=== PATIENT | male | born 1955 | race Caucasian/White ===

== ENCOUNTER 2016-07-08 11:32 | Emergency (ER) | payer MEDICARE, OTHER ==
--- NOTE | 2016-07-08 12:27 | ED ---
General Adult HPI - General Chief complaint: Weakness Stated complaint: POSS SEPSIS Time Seen by Provider: 07/08/16 11:55 Source: patient, RN notes reviewed Mode of arrival: EMS Limitations: no limitations - History of Present Illness Initial comments: This is a 60-year-old male who presents to the emergency department complaining of generalized weakness. Patient states she's fallen twice yesterday and hurt his lower back. According to the facility where he came from the physician wanted to get an x-ray of his pelvis and lower back however the x-ray machine was incapable of x-raying somewhat as large as he was. The patient was sent into the emergency department. They also wanted us to evaluate him for any infection because they were only getting very low temperatures the patient. Patient states he does feel weaker in general but aside from that he has had no complaints per patient denies headache patient denies any lightheadedness or dizziness. Patient denies any chest pain or palpitations. Patient denies any shortness of breath or difficulty breathing more than normal. Patient denies abdominal pain patient denies nausea vomiting or diarrhea. Patient denies any recent fever or chills or cough. Patient denies any dysuria hematuria. Patient states she's got chronic cellulitis on bilateral legs. - Related Data Home Medications Medication Instructions Recorded Confirmed Aspirin EC [Ecotrin Low Dose] 81 mg PO HS 10/11/15 07/08/16 glipiZIDE [Glucotrol] 5 mg PO DAILY 10/11/15 07/08/16 Ergocalciferol [Vitamin D2 50,000 unit PO MO 11/24/15 07/08/16 (DRISDOL)] Omeprazole [PriLOSEC] 20 mg PO DAILY 11/24/15 07/08/16 Levalbuterol Nebulized [Xopenex 1.25 mg INHALATION RT-TID 11/25/15 07/08/16 Nebulized] Metoprolol Tartrate [Lopressor] 50 mg PO BID 11/25/15 07/08/16 Sacubitril/Valsartan [Entresto 24 1 tab PO BID 11/25/15 07/08/16 mg-26 mg Tablet] Acetaminophen Tab [Tylenol] 325 mg PO Q6H PRN 05/02/16 07/08/16 INSULIN LISPRO (humaLOG) [humaLOG See Protocol SQ ACHS 05/02/16 07/08/16 (formulary)] Levothyroxine Sodium [Synthroid] 150 mcg PO DAILY 05/02/16 07/08/16 Loperamide [Imodium] 2 mg PO QID PRN 05/02/16 07/08/16 Menthol [Biofreeze] 1 applic TOPICAL BID PRN 05/02/16 07/08/16 Metolazone [Zaroxolyn] 2.5 mg PO DAILY@0500 05/02/16 07/08/16 Miconazole Nitrate [Lotrimin AF 1 applic TOPICAL DAILY 05/02/16 07/08/16 Powder] Nystatin 100,000 Unit/gm Powd 1 applic TOPICAL BID 05/02/16 07/08/16 [Mycostatin Powder] Pravastatin Sodium [Pravachol] 40 mg PO HS 05/02/16 07/08/16 SILVER sulfADIAZINE CREAM 1 applic TOPICAL HS 05/02/16 07/08/16 [Silvadene Cream] Allopurinol [Zyloprim] 300 mg PO DAILY 07/08/16 07/08/16 Cetirizine HCl [Zyrtec] 10 mg PO DAILY@0600 07/08/16 07/08/16 Clotrimazole/Betamethasone Dip 1 applic TOPICAL BID@0700,1600 07/08/16 07/08/16 [Lotrisone Cream] Darbepoetin Tez [Aranesp] 60 mcg SQ TU 07/08/16 07/08/16 Edoxaban Tosylate [Savaysa] 30 mg PO HS 07/08/16 07/08/16 Mylanta Susp 30 ml PO Q4H PRN 07/08/16 07/08/16 Nitroglycerin Sl Tabs [Nitrostat] 0.4 mg SUBLINGUAL Q5M PRN 07/08/16 07/08/16 PARoxetine HCL [Paxil] 40 mg PO DAILY@0700 07/08/16 07/08/16 Penicillin V Potassium [Pen Vee K] 250 mg PO DAILY 07/08/16 07/08/16 Sodium Chloride [[place]] 1 spray EA NOSTRIL Q8H PRN 07/08/16 07/08/16 oxyCODONE HCL 15 mg PO Q6HR PRN 07/08/16 07/08/16 Previous Rx's Medication Instructions Recorded ALPRAZolam [Xanax] 0.5 mg PO Q8H PRN #30 tab 05/08/16 Acetaminophen Tab [Tylenol] 650 mg PO Q6HR PRN #0 tab 05/08/16 Furosemide [Lasix] 40 mg PO DAILY tab 05/08/16 Methylphenidate HCl [Ritalin] 20 mg PO BID@0500,1500 #60 tablet 05/08/16 Pregabalin [Lyrica] 75 mg PO BID #60 cap 05/08/16 Allergies Allergy/AdvReac Type Severity Reaction Status Date / Time [facility] Allergy Severe Rash/Hives Uncoded 05/02/16 15:47 Review of Systems ROS Statement: Those systems with pertinent positive or pertinent negative responses have been documented in the HPI. ROS Other: All systems not noted in ROS Statement are negative. Past Medical History Past Medical History: Atrial Fibrillation, Heart Failure, COPD, Diabetes Mellitus, GERD/Reflux, Hyperlipidemia, Hypertension, Pneumonia, Renal Disease, Sleep Apnea/CPAP/BIPAP, Thyroid Disorder Additional Past Medical History / Comment(s): IDDM type II, chronic kidney disease stage III, ALLA uses CPAP most nights, narcolepsy, diabetic neuropathy bilateral hands and feet, chronic back pain, spinal stenosis, DJD, falls, diverticular dx, L vocal cord irregularity/lesion noted and pt states he followed up and it had gone down, hypothyroidism.EDENTULOUS History of Any Multi-Drug Resistant Organisms: MRSA, Other MDRO Date of last positivie culture/infection: 02/03/15, 05/02/16 MDRO Source:: Right leg, mdro pseudo urine Past Surgical History: Adenoidectomy, Cholecystectomy, Orthopedic Surgery, Tonsillectomy Additional Past Surgical History / Comment(s): 04/28/15 nasophargoscopy larygoscopy, colonoscopy, lt knee arthroscopy Past Anesthesia/Blood Transfusion Reactions: No Reported Reaction, Family History of Problems w/ Anesthesia Additional Past Anesthesia/Blood Transfusion Reaction / Comment(s): states father had cardiac arrest 2x's. Pt received blood in 1983 with tonsillectomy.PT IS CLAUSTERPHOBIC. Past Psychological History: Depression Additional Psychological History / Comment(s): . Smoking Status: Never smoker Past Alcohol Use History: None Reported Additional Past Alcohol Use History / Comment(s): Pt states he started smoking at age 9 yrs and WAS up to 2 ppd ,THEN QUIT SMORT PERIOD OF TIME BUT ONLY FEW CIG PER DAY Past Drug Use History: None Reported - Past Family History Sister(s) Additional Family Medical History / Comment(s): CARR'S Mother Family Medical History: Renal Disease Father Family Medical History: Cancer, Coronary Artery Disease (CAD), Diabetes Mellitus General Exam - General Exam Comments Initial Comments: GENERAL: Patient is well-developed and well-nourished. Patient is nontoxic and well- hydrated and is in mild distress. ENT: Neck is soft and supple. No significant lymphadenopathy is noted. Oropharynx is clear. Moist mucous membranes. Neck has full range of motion without eliciting any pain. EYES: The sclera were anicteric and conjunctiva were pink and moist. Extraocular movements were intact and pupils were equal round and reactive to light. Eyelids were unremarkable. PULMONARY: Unlabored respirations. Good breath sounds bilaterally. No audible rales rhonchi or wheezing was noted. CARDIOVASCULAR: Patient has an irregular heartbeat ABDOMEN: Soft and nontender with normal bowel sounds. No palpable organomegaly was noted. There is no palpable pulsatile mass. SKIN: Bilateral leg cellulitis which appears chronic there is some weeping through the skin and some fluid-filled vesicles. There is quite a bit of edema bilaterally as well NEUROLOGIC: Patient is alert and oriented x3. Cranial nerves II through XII are grossly intact. Motor and sensory are also intact. Normal speech, volume and content. Symmetrical smile. MUSCULOSKELETAL: Patient has some lower back pain when trying to lift passively his left leg. Patient has bilateral chronic cellulitis patient has some weeping as well. LYMPHATICS: No significant lymphadenopathy is noted PSYCHIATRIC: Normal psychiatric evaluation. Limitations: no limitations Course Vital Signs 07/08/16 07/08/16 07/08/16 11:53 12:33 15:14 Temperature 96.8 F L 97.6 F 98.5 F Pulse Rate 84 93 Respiratory 18 16 Rate Blood Pressure 138/98 134/58 O2 Sat by Pulse 98 97 Oximetry Medical Decision Making - Medical Decision Making EKG shows atrial fibrillation at 91 bpm QRS is 142 QT interval is 418 QTC is 514. Patient has no ST segment elevation or depression. I compared this EKG to an old EKG is in no acute changes noted. Lumbosacral spine shows no acute injury. Pelvic x-ray shows no acute fracture. Chest x-ray is reviewed by myself I see no signs of pneumonia. Patient was discharged with a hemoglobin 8.6 the last time he was in the hospital his hemoglobin today is 8.3 so that appears to be stable patient himself really has no complaints other than he hurt his back when he fell. - Lab Data Result diagrams: 07/08/16 12:55 07/08/16 12:55 Lab Results 07/08/16 07/08/16 07/08/16 Range/Units 12:55 12:55 12:55 WBC 8.0 (3.8-10.6) k/uL RBC 2.75 L (4.30-5.90) m/uL Hgb 8.3 L (13.0-17.5) gm/dL Hct 25.6 L (39.0-53.0) % MCV 93.1 (80.0-100.0) fL MCH 30.4 (25.0-35.0) pg MCHC 32.6 (31.0-37.0) g/dL RDW 15.2 (11.5-15.5) % Plt Count 197 (150-450) k/uL Neutrophils % 62 % Lymphocytes % 22 % Monocytes % 6 % Eosinophils % 8 % Basophils % 1 % Neutrophils # 4.9 (1.3-7.7) k/uL Lymphocytes # 1.7 (1.0-4.8) k/uL Monocytes # 0.5 (0-1.0) k/uL Eosinophils # 0.6 (0-0.7) k/uL Basophils # 0.1 (0-0.2) k/uL Hypochromasia Moderate Poikilocytosis Slight PT (9.0-12.0) sec INR (<1.1) APTT (22.0-30.0) sec Sodium 141 (137-145) mmol/L Potassium 5.3 H (3.5-5.1) mmol/L Chloride 97 L (98-107) mmol/L Carbon Dioxide 31 H (22-30) mmol/L Anion Gap 13 mmol/L BUN 76 H (9-20) mg/dL Creatinine 3.43 H (0.66-1.25) mg/dL Est GFR (MDRD) Af Amer 22 (>60 ml/min/1.73 sqM) Est GFR (MDRD) Non-Af 18 (>60 ml/min/1.73 sqM) Glucose 167 H (74-99) mg/dL Plasma Lactic Acid Jaxon 1.0 (0.7-2.0) mmol/L Calcium 8.9 (8.4-10.2) mg/dL Magnesium 2.5 H (1.6-2.3) mg/dL Total Bilirubin 0.5 (0.2-1.3) mg/dL AST 32 (17-59) U/L ALT 24 (21-72) U/L Alkaline Phosphatase 130 H (38-126) U/L Total Creatine Kinase (55-170) U/L CK-MB (CK-2) (0.0-2.4) ng/mL CK-MB (CK-2) Rel Index Troponin I (0.000-0.034) ng/mL Total Protein 7.8 (6.3-8.2) g/dL Albumin 3.5 (3.5-5.0) g/dL 07/08/16 07/08/16 Range/Units 13:20 13:20 WBC (3.8-10.6) k/uL RBC (4.30-5.90) m/uL Hgb (13.0-17.5) gm/dL Hct (39.0-53.0) % MCV (80.0-100.0) fL MCH (25.0-35.0) pg MCHC (31.0-37.0) g/dL RDW (11.5-15.5) % Plt Count (150-450) k/uL Neutrophils % % Lymphocytes % % Monocytes % % Eosinophils % % Basophils % % Neutrophils # (1.3-7.7) k/uL Lymphocytes # (1.0-4.8) k/uL Monocytes # (0-1.0) k/uL Eosinophils # (0-0.7) k/uL Basophils # (0-0.2) k/uL Hypochromasia Poikilocytosis PT 11.4 (9.0-12.0) sec INR 1.1 (<1.1) APTT 24.9 (22.0-30.0) sec Sodium (137-145) mmol/L Potassium (3.5-5.1) mmol/L Chloride (98-107) mmol/L Carbon Dioxide (22-30) mmol/L Anion Gap mmol/L BUN (9-20) mg/dL Creatinine (0.66-1.25) mg/dL Est GFR (MDRD) Af Amer (>60 ml/min/1.73 sqM) Est GFR (MDRD) Non-Af (>60 ml/min/1.73 sqM) Glucose (74-99) mg/dL Plasma Lactic Acid Jaxon (0.7-2.0) mmol/L Calcium (8.4-10.2) mg/dL Magnesium (1.6-2.3) mg/dL Total Bilirubin (0.2-1.3) mg/dL AST (17-59) U/L ALT (21-72) U/L Alkaline Phosphatase (38-126) U/L Total Creatine Kinase 83 (55-170) U/L CK-MB (CK-2) 1.7 (0.0-2.4) ng/mL CK-MB (CK-2) Rel Index 2.0 Troponin I <0.012 (0.000-0.034) ng/mL Total Protein (6.3-8.2) g/dL Albumin (3.5-5.0) g/dL Disposition Clinical Impression: Frequent falls, Lumbar strain Disposition: HOME SELF-CARE Instructions: Low Back Strain (ED) Referrals: Maxwell Lai MD [Primary Care Provider] - 1-2 days Time of Disposition: 14:51
[2016-07-08 13:31] LABS: Calcium 8.9 mg/dL (8.4-10.2); Total Bilirubin 0.5 mg/dL (0.2-1.3); Total Protein 7.8 g/dL (6.3-8.2)
[2016-07-08 13:32] LABS: Potassium 5.3 mmol/L (3.5-5.1)
[2016-07-08 13:33] LABS: Magnesium 2.5 mg/dL (1.6-2.3)
[2016-07-08 13:39] LABS: Basophils # (A) 0.1 k/uL (0-0.2); Basophils % (A) 1 %; CH 30.1; CHCM 32.5; Eosinophils # (A) 0.6 k/uL (0-0.7); Eosinophils % (A) 8 %; HCT 25.6 % (39.0-53.0); HDW 3.92; HGB 8.3 gm/dL (13.0-17.5); Hypochromasia Moderate; Luc # (Auto) 0.19; Luc % (Auto) 2; Lymphocytes # (A) 1.7 k/uL (1.0-4.8); Lymphocytes % (A) 22 %; MCH 30.4 pg (25.0-35.0); MCHC 32.6 g/dL (31.0-37.0); MCV 93.1 fL (80.0-100.0); Mean Platelet Volume 8.1; Monocytes # (A) 0.5 k/uL (0-1.0); Monocytes % (A) 6 %; Neutrophils # (A) 4.9 k/uL (1.3-7.7); Neutrophils % (A) 62 %; Poikilocytosis Slight; RBC 2.75 m/uL (4.30-5.90); RDW 15.2 % (11.5-15.5); WBC (Perox) 8.06
[2016-07-08 13:39] LABS: INR 1.1 (<1.1); Partial Thromboplastin Time 24.9 sec (22.0-30.0); Prothrombin Time 11.4 sec (9.0-12.0)
[2016-07-08 13:48] LABS: Creatine Kinase 83 U/L (55-170)
[2016-07-08 14:01] LABS: Creatine Kinase MB 1.7 ng/mL (0.0-2.4); Troponin I <0.012 ng/mL (0.000-0.034)
--- NOTE | 2016-07-08 14:44 | XR ---
EXAMINATION TYPE: XR chest 2V DATE OF EXAM: 07/08/2016 2:23 PM COMPARISON: 05/02/2016 INDICATION: Weakness back pain TECHNIQUE: Frontal and lateral views of the chest are obtained. FINDINGS: Heart size is prominent The pulmonary vasculature is normal. Mild right lower lobe infiltrate is present. Correlate for pneumonia. IMPRESSION: 1. Clinical consideration for right lower lobe pneumonia is recommended. 2. Mild cardiomegaly
--- NOTE | 2016-07-08 14:45 | XR ---
EXAMINATION TYPE: XR lumbosacral spine min 4V DATE OF EXAM: 07/08/2016 2:23 PM COMPARISON: NONE HISTORY: Back pain TECHNIQUE: 5 view lumbar spine FINDINGS: Disc space narrowing is present in the lower lumbar spine L4-5 region. The L5-S1 disc space appears significantly diminished. Spondylosis is present. Facet degenerative changes are present. No spondylolytic defects are evident. There 5 lumbar-type vertebral bodies. The pedicles are intact. IMPRESSION: 1. Degenerative changes within the facets and lower disc spaces.
--- NOTE | 2016-07-08 14:46 | XR ---
EXAMINATION TYPE: XR pelvis AP view DATE OF EXAM: 07/08/2016 2:23 PM COMPARISON: NONE HISTORY: Low back pain history of falls TECHNIQUE: AP pelvis FINDINGS: Femoral heads articulate with the acetabulum. No acute fractures are evident. Cam deformiti es are present at the hips. Symphysis pubis and sacroiliac joints appear intact. Normal bowel gas is present. IMPRESSION: No acute osseous abnormality.
[2016-07-08 15:16] VITALS: BP 134/58; PULSE 93; RESP 16; TEMP 98.5
== END 2016-07-08 16:03 | disposition home or self-care (01) ==
LOC: EC 11:32
DX: S39.012A Strain of muscle, fascia and tendon of lower back, initial encounter (principal); I13.0 Hypertensive heart and chronic kidney disease with heart failure and stage 1 through stage 4 chronic kidney disease, or unspecified chronic kidney disease; E11.22 Type 2 diabetes mellitus with diabetic chronic kidney disease; E11.42 Type 2 diabetes mellitus with diabetic polyneuropathy; N18.3 Chronic kidney disease, stage 3 (moderate); W19.XXXA Unspecified fall, initial encounter; Z91.81 History of falling; Z79.84 Long term (current) use of oral hypoglycemic drugs; Z79.82 Long term (current) use of aspirin; Z79.4 Long term (current) use of insulin; Z79.899 Other long term (current) drug therapy; I50.9 Heart failure, unspecified; J44.9 Chronic obstructive pulmonary disease, unspecified; K21.9 Gastro-esophageal reflux disease without esophagitis; E78.5 Hyperlipidemia, unspecified; Z87.01 Personal history of pneumonia (recurrent); G47.33 Obstructive sleep apnea (adult) (pediatric); E03.9 Hypothyroidism, unspecified; Z86.14 Personal history of Methicillin resistant Staphylococcus aureus infection; Z82.49 Family history of ischemic heart disease and other diseases of the circulatory system; F32.9 Major depressive disorder, single episode, unspecified; F17.210 Nicotine dependence, cigarettes, uncomplicated; Z79.01 Long term (current) use of anticoagulants
CPT/HCPCS: 36415; 71020; 72110; 72170; 80053; 82550; 82553; 83605; 83735; 84484; 85025; 85610; 85730; 87040; 93005; 99284

== ENCOUNTER 2016-07-11 15:01 | Emergency (ER) | payer MEDICARE, OTHER ==
--- NOTE | 2016-07-11 16:21 | ED ---
Recheck HPI - General Chief Complaint: Recheck/Abnormal Lab/Rx Stated Complaint: Abnormal labs Time Seen by Provider: 07/11/16 15:45 Source: patient, EMS, RN notes reviewed, old records reviewed Mode of arrival: EMS Limitations: no limitations - History of Present Illness Initial Comments: This is a 60-year-old male who was sent in from a [facility] for evaluation for low hemoglobin and abnormal labs. He was seen here 3 days ago and found have renal failure syndrome. He states he does periodically get transfusion due to the low hemoglobin he is found have a hemoglobin and low 7 today. 3 days ago was higher. He denies any overt fevers chills nausea vomiting sweats or other symptoms. MD Complaint: abnormal lab - Related Data Home Medications Medication Instructions Recorded Confirmed Aspirin EC [Ecotrin Low Dose] 81 mg PO HS 10/11/15 07/11/16 glipiZIDE [Glucotrol] 5 mg PO DAILY 10/11/15 07/11/16 Ergocalciferol [Vitamin D2 50,000 unit PO MO 11/24/15 07/11/16 (DRISDOL)] Omeprazole [PriLOSEC] 20 mg PO DAILY 11/24/15 07/11/16 Levalbuterol Nebulized [Xopenex 1.25 mg INHALATION RT-TID 11/25/15 07/11/16 Nebulized] Metoprolol Tartrate [Lopressor] 50 mg PO BID 11/25/15 07/11/16 Sacubitril/Valsartan [Entresto 24 1 tab PO BID 11/25/15 07/11/16 mg-26 mg Tablet] Acetaminophen Tab [Tylenol] 325 mg PO Q6H PRN 05/02/16 07/11/16 INSULIN LISPRO (humaLOG) [humaLOG See Protocol SQ ACHS 05/02/16 07/11/16 (formulary)] Levothyroxine Sodium [Synthroid] 150 mcg PO DAILY 05/02/16 07/11/16 Loperamide [Imodium] 2 mg PO QID PRN 05/02/16 07/11/16 Menthol [Biofreeze] 1 applic TOPICAL BID PRN 05/02/16 07/11/16 Metolazone [Zaroxolyn] 2.5 mg PO DAILY@0500 05/02/16 07/11/16 Miconazole Nitrate [Lotrimin AF 1 applic TOPICAL DAILY 05/02/16 07/11/16 Powder] Nystatin 100,000 Unit/gm Powd 1 applic TOPICAL BID 05/02/16 07/11/16 [Mycostatin Powder] Pravastatin Sodium [Pravachol] 40 mg PO HS 05/02/16 07/11/16 SILVER sulfADIAZINE CREAM 1 applic TOPICAL HS 05/02/16 07/11/16 [Silvadene Cream] Allopurinol [Zyloprim] 300 mg PO DAILY 07/08/16 07/11/16 Cetirizine HCl [Zyrtec] 10 mg PO DAILY@0600 07/08/16 07/11/16 Clotrimazole/Betamethasone Dip 1 applic TOPICAL BID@0700,1600 07/08/16 07/11/16 [Lotrisone Cream] Darbepoetin Tez [Aranesp] 60 mcg SQ TU 07/08/16 07/11/16 Edoxaban Tosylate [Savaysa] 30 mg PO HS 07/08/16 07/11/16 Mylanta Susp 30 ml PO Q4H PRN 07/08/16 07/11/16 Nitroglycerin Sl Tabs [Nitrostat] 0.4 mg SUBLINGUAL Q5M PRN 07/08/16 07/11/16 PARoxetine HCL [Paxil] 40 mg PO DAILY@0700 07/08/16 07/11/16 Penicillin V Potassium [Pen Vee K] 250 mg PO DAILY 07/08/16 07/11/16 Sodium Chloride [[place]] 1 spray EA NOSTRIL Q8H PRN 07/08/16 07/11/16 oxyCODONE HCL 15 mg PO Q6HR PRN 07/08/16 07/11/16 Previous Rx's Medication Instructions Recorded ALPRAZolam [Xanax] 0.5 mg PO Q8H PRN #30 tab 05/08/16 Acetaminophen Tab [Tylenol] 650 mg PO Q6HR PRN #0 tab 05/08/16 Furosemide [Lasix] 40 mg PO DAILY tab 05/08/16 Methylphenidate HCl [Ritalin] 20 mg PO BID@0500,1500 #60 tablet 05/08/16 Pregabalin [Lyrica] 75 mg PO BID #60 cap 05/08/16 Allergies Allergy/AdvReac Type Severity Reaction Status Date / Time No Known Allergies Allergy Unverified 07/11/16 15:16 Review of Systems ROS Statement: Those systems with pertinent positive or pertinent negative responses have been documented in the HPI. ROS Other: All systems not noted in ROS Statement are negative. Past Medical History Past Medical History: Atrial Fibrillation, Heart Failure, COPD, Diabetes Mellitus, GERD/Reflux, Hyperlipidemia, Hypertension, Pneumonia, Renal Disease, Sleep Apnea/CPAP/BIPAP, Thyroid Disorder Additional Past Medical History / Comment(s): IDDM type II, chronic kidney disease stage III, ALLA uses CPAP most nights, narcolepsy, diabetic neuropathy bilateral hands and feet, chronic back pain, spinal stenosis, DJD, falls, diverticular dx, L vocal cord irregularity/lesion noted and pt states he followed up and it had gone down, hypothyroidism.EDENTULOUS History of Any Multi-Drug Resistant Organisms: MRSA, Other MDRO Date of last positivie culture/infection: 02/03/15, 05/02/16 MDRO Source:: Right leg, mdro pseudo urine Past Surgical History: Adenoidectomy, Cholecystectomy, Orthopedic Surgery, Tonsillectomy Additional Past Surgical History / Comment(s): 04/28/15 nasophargoscopy larygoscopy, colonoscopy, lt knee arthroscopy Past Anesthesia/Blood Transfusion Reactions: No Reported Reaction, Family History of Problems w/ Anesthesia Additional Past Anesthesia/Blood Transfusion Reaction / Comment(s): states father had cardiac arrest 2x's. Pt received blood in 1983 with tonsillectomy.PT IS CLAUSTERPHOBIC. Past Psychological History: Depression Additional Psychological History / Comment(s): . Smoking Status: Former smoker Past Alcohol Use History: None Reported Additional Past Alcohol Use History / Comment(s): Pt states he started smoking at age 9 yrs and WAS up to 2 ppd ,THEN QUIT SMORT PERIOD OF TIME BUT ONLY FEW CIG PER DAY Past Drug Use History: None Reported - Past Family History Sister(s) Additional Family Medical History / Comment(s): CARR'S Mother Family Medical History: Renal Disease Father Family Medical History: Cancer, Coronary Artery Disease (CAD), Diabetes Mellitus General Exam - General Exam Comments Initial Comments: This is a well-developed well-nourished awake alert oriented 3 male Limitations: no limitations General appearance: alert, in no apparent distress Head exam: Present: atraumatic, normocephalic, normal inspection Eye exam: Present: normal appearance, PERRL, EOMI. Absent: scleral icterus, conjunctival injection, periorbital swelling ENT exam: Present: normal exam, mucous membranes moist Neck exam: Present: normal inspection. Absent: tenderness, meningismus, lymphadenopathy Respiratory exam: Present: normal lung sounds bilaterally. Absent: respiratory distress, wheezes, rales, rhonchi, stridor Cardiovascular Exam: Present: regular rate, normal rhythm, normal heart sounds. Absent: systolic murmur, diastolic murmur, rubs, gallop, clicks GI/Abdominal exam: Present: soft, normal bowel sounds, other (Obese abdomen). Absent: distended, tenderness, guarding, rebound, rigid Extremities exam: Present: full ROM, normal capillary refill, pedal edema, other (Stasis dermatitis with peripheral edema the patient's legs are wrapped). Absent: tenderness, joint swelling, calf tenderness Back exam: Present: normal inspection Neurological exam: Present: alert, oriented X3, CN II-XII intact Psychiatric exam: Present: normal affect, normal mood Skin exam: Present: warm, dry, intact, pallor. Absent: rash Course Vital Signs 07/11/16 07/11/16 15:12 17:15 Temperature 96.9 F L 98.6 F Pulse Rate 82 93 Respiratory 20 16 Rate Blood Pressure 119/62 97/56 O2 Sat by Pulse 95 100 Oximetry Medical Decision Making - Medical Decision Making I did discuss the findings with the patient he is currently not a candidate for transfusion and his renal function is relatively stable he will be sent back to his [facility]. - Lab Data Result diagrams: 07/11/16 15:30 07/11/16 15:30 Lab Results 07/11/16 07/11/16 07/11/16 Range/Units 15:30 15:30 15:30 WBC 8.3 (3.8-10.6) k/uL RBC 2.62 L (4.30-5.90) m/uL Hgb 7.9 L (13.0-17.5) gm/dL Hct 24.3 L (39.0-53.0) % MCV 92.8 (80.0-100.0) fL MCH 30.2 (25.0-35.0) pg MCHC 32.5 (31.0-37.0) g/dL RDW 15.5 (11.5-15.5) % Plt Count 183 (150-450) k/uL Neutrophils % 65 % Lymphocytes % 17 % Monocytes % 8 % Eosinophils % 7 % Basophils % 1 % Neutrophils # 5.4 (1.3-7.7) k/uL Lymphocytes # 1.4 (1.0-4.8) k/uL Monocytes # 0.7 (0-1.0) k/uL Eosinophils # 0.6 (0-0.7) k/uL Basophils # 0.1 (0-0.2) k/uL Hypochromasia Slight Poikilocytosis Slight Sodium 142 (137-145) mmol/L Potassium 5.3 H (3.5-5.1) mmol/L Chloride 98 (98-107) mmol/L Carbon Dioxide 29 (22-30) mmol/L Anion Gap 15 mmol/L BUN 86 H* (9-20) mg/dL Creatinine 3.50 H (0.66-1.25) mg/dL Est GFR (MDRD) Af Amer 22 (>60 ml/min/1.73 sqM) Est GFR (MDRD) Non-Af 18 (>60 ml/min/1.73 sqM) Glucose 108 H (74-99) mg/dL Calcium 8.6 (8.4-10.2) mg/dL Magnesium 2.6 H (1.6-2.3) mg/dL Total Bilirubin 0.4 (0.2-1.3) mg/dL AST 22 (17-59) U/L ALT 23 (21-72) U/L Alkaline Phosphatase 131 H (38-126) U/L Total Creatine Kinase 96 (55-170) U/L CK-MB (CK-2) 2.0 (0.0-2.4) ng/mL CK-MB (CK-2) Rel Index 2.1 Troponin I <0.012 (0.000-0.034) ng/mL Total Protein 7.5 (6.3-8.2) g/dL Albumin 3.5 (3.5-5.0) g/dL - Radiology Data Radiology results: report reviewed, image reviewed (I did review the x-ray report no acute findings) Disposition Clinical Impression: Chronic renal insufficiency, Chronic anemia Disposition: HOME SELF-CARE Condition: Good Instructions: Anemia (ED), Impaired Kidney Function (ED), Chronic Kidney Disease (ED)
[2016-07-11 16:34] LABS: Basophils # (A) 0.1 k/uL (0-0.2); Basophils % (A) 1 %; CH 30.1; CHCM 32.7; Eosinophils # (A) 0.6 k/uL (0-0.7); Eosinophils % (A) 7 %; HCT 24.3 % (39.0-53.0); HGB 7.9 gm/dL (13.0-17.5); Hypochromasia Slight; Luc # (Auto) 0.23; Luc % (Auto) 3; Lymphocytes # (A) 1.4 k/uL (1.0-4.8); Lymphocytes % (A) 17 %; MCH 30.2 pg (25.0-35.0); MCHC 32.5 g/dL (31.0-37.0); MCV 92.8 fL (80.0-100.0); Mean Platelet Volume 8.3; Monocytes # (A) 0.7 k/uL (0-1.0); Monocytes % (A) 8 %; Neutrophils # (A) 5.4 k/uL (1.3-7.7); Neutrophils % (A) 65 %; Poikilocytosis Slight; RBC 2.62 m/uL (4.30-5.90); RDW 15.5 % (11.5-15.5); WBC 8.3 k/uL (3.8-10.6); WBC (Perox) 8.54
[2016-07-11 16:49] LABS: Calcium 8.6 mg/dL (8.4-10.2); Magnesium 2.6 mg/dL (1.6-2.3); Total Bilirubin 0.4 mg/dL (0.2-1.3); Total Protein 7.5 g/dL (6.3-8.2)
[2016-07-11 16:50] LABS: Creatine Kinase 96 U/L (55-170)
--- NOTE | 2016-07-11 17:02 | XR ---
EXAMINATION TYPE: XR chest 2V DATE OF EXAM: 07/11/2016 4:51 PM COMPARISON: 07/08/2016 HISTORY: 60-year-old male trauma, abnormal labs and generalized weakness TECHNIQUE: AP and lateral views FINDINGS: Limited exam due to patient's large body habitus and portable technique. Heart appears mildly enlarge d. There may be some peribronchial cuffing. Minimal residual right basilar opacity though improved ae ration from 07/08/2016. No new consolidation or significant pleural effusion seen. IMPRESSION: 1. Cardiomegaly. 2. There may be some peribronchial cuffing which can be seen with mild CHF, bronchitis, or chronic as thma. 3. There is improving aeration at the right base as compared to prior exam.
[2016-07-11 17:03] LABS: Troponin I <0.012 ng/mL (0.000-0.034)
[2016-07-11 17:16] LABS: Potassium 5.3 mmol/L (3.5-5.1)
[2016-07-11 18:49] VITALS: BP 120/70; PULSE 116; RESP 20; TEMP 98.1
== END 2016-07-11 18:51 | disposition home or self-care (01) ==
LOC: EC 15:01
DX: I12.9 Hypertensive chronic kidney disease with stage 1 through stage 4 chronic kidney disease, or unspecified chronic kidney disease (principal); E11.22 Type 2 diabetes mellitus with diabetic chronic kidney disease; N18.3 Chronic kidney disease, stage 3 (moderate); D63.1 Anemia in chronic kidney disease; Z79.82 Long term (current) use of aspirin; Z79.4 Long term (current) use of insulin; Z79.01 Long term (current) use of anticoagulants; Z79.84 Long term (current) use of oral hypoglycemic drugs; K21.9 Gastro-esophageal reflux disease without esophagitis; J44.9 Chronic obstructive pulmonary disease, unspecified; E78.5 Hyperlipidemia, unspecified; G47.33 Obstructive sleep apnea (adult) (pediatric); E11.40 Type 2 diabetes mellitus with diabetic neuropathy, unspecified; E03.9 Hypothyroidism, unspecified; Z87.891 Personal history of nicotine dependence; I48.91 Unspecified atrial fibrillation; G89.29 Other chronic pain; F32.9 Major depressive disorder, single episode, unspecified
CPT/HCPCS: 36415; 71020; 80053; 82550; 82553; 83735; 84484; 85025; 86850; 86900; 86901; 99285

== ENCOUNTER 2016-10-06 10:23 | Inpatient (IN) | payer MEDICARE, OTHER ==
[2016-10-06] MEDS ORDERED: GELATIN SPONGE,ABSORB (SMALL) 1 EACH SPONGE TOPICAL STA (10:49)
--- NOTE | 2016-10-06 10:49 | ED ---
General Adult HPI - General Chief complaint: GI Bleed Stated complaint: GI Bleed Time Seen by Provider: 10/06/16 10:31 Source: patient, EMS, RN notes reviewed Mode of arrival: EMS Limitations: physical limitation - History of Present Illness Initial comments: Patient is a pleasant 60-year-old male presenting to the emergency department with concerns regarding bleeding. skilled nursing make concern for possible GI bleed. Patient states he does have a small area on his left scrotum that they have an attending to that has had some bleeding and he believes the bleeding is likely from that. No chest pain or dyspnea. No fatigue. Patient does have sores legs. Patient has not been going to the [facility] for this. - Related Data Home Medications Medication Instructions Recorded Confirmed Aspirin EC [Ecotrin Low Dose] 81 mg PO HS 10/11/15 10/06/16 Ergocalciferol [Vitamin D2 50,000 unit PO MO 11/24/15 10/06/16 (DRISDOL)] Omeprazole [PriLOSEC] 20 mg PO DAILY 11/24/15 10/06/16 Levalbuterol Nebulized [Xopenex 1.25 mg INHALATION RT-TID 11/25/15 10/06/16 Nebulized] Sacubitril/Valsartan [Entresto 24 1 tab PO BID 11/25/15 10/06/16 mg-26 mg Tablet] Acetaminophen Tab [Tylenol] 325 mg PO Q6H PRN 05/02/16 10/06/16 INSULIN LISPRO (humaLOG) [humaLOG 10 units SQ TID@0700,1100,1700 05/02/16 (formulary)] Levothyroxine Sodium [Synthroid] 150 mcg PO DAILY 05/02/16 10/06/16 Loperamide [Imodium] 2 mg PO QID PRN 05/02/16 10/06/16 Menthol [Biofreeze] 1 applic TOPICAL BID PRN 05/02/16 10/06/16 Metolazone [Zaroxolyn] 2.5 mg PO DAILY 05/02/16 10/06/16 Nystatin 100,000 Unit/gm Powd 1 applic TOPICAL BID 05/02/16 10/06/16 [Mycostatin Powder] Pravastatin Sodium [Pravachol] 40 mg PO HS 05/02/16 10/06/16 SILVER sulfADIAZINE CREAM 1 applic TOPICAL HS 05/02/16 10/06/16 [Silvadene Cream] Allopurinol [Zyloprim] 300 mg PO DAILY 07/08/16 10/06/16 Edoxaban Tosylate [Savaysa] 30 mg PO HS 07/08/16 10/06/16 Mylanta Susp 30 ml PO Q4H PRN 07/08/16 10/06/16 Nitroglycerin Sl Tabs [Nitrostat] 0.4 mg SUBLINGUAL Q5M PRN 07/08/16 10/06/16 PARoxetine HCL [Paxil] 40 mg PO DAILY@0700 07/08/16 10/06/16 Penicillin V Potassium [Pen Vee K] 250 mg PO DAILY 07/08/16 10/06/16 Sodium Chloride [Alfred] 1 spray EA NOSTRIL Q8H PRN 07/08/16 10/06/16 oxyCODONE HCL 15 mg PO Q6HR PRN 07/08/16 10/06/16 Acetaminophen Tab [Tylenol] 650 mg PO Q4H PRN 10/06/16 10/06/16 Colloidal Oatmeal [Eucerin Eczema 1 applic TOPICAL BID 10/06/16 10/06/16 Relief] Darbepoetin Tez [Aranesp] 100 mcg IJ MO 10/06/16 10/06/16 Doxepin [SINEquan] 10 mg PO HS 10/06/16 10/06/16 Furosemide [Lasix] 80 mg PO BID 10/06/16 10/06/16 Insulin Glargine [Lantus] 22 unit SQ HS@199910/06/16 10/06/16 Methylphenidate HCl [Ritalin] 20 mg PO BID@0500,1500 10/06/16 10/06/16 Metoprolol Tartrate [Lopressor] 25 mg PO BID 10/06/16 10/06/16 Nystatin 100,000Unit/gm Cream 1 applic TOPICAL BID 10/06/16 10/06/16 [Mycostatin Cream] glipiZIDE [Glucotrol] 10 mg PO DAILY 10/06/16 10/06/16 Previous Rx's Medication Instructions Recorded ALPRAZolam [Xanax] 0.5 mg PO Q8H PRN #30 tab 05/08/16 Pregabalin [Lyrica] 75 mg PO BID #60 cap 05/08/16 Allergies Allergy/AdvReac Type Severity Reaction Status Date / Time No Known Allergies Allergy Verified 10/06/16 10:32 Review of Systems ROS Statement: Those systems with pertinent positive or pertinent negative responses have been documented in the HPI. ROS Other: All systems not noted in ROS Statement are negative. Constitutional: Denies: fever Eyes: Denies: eye pain ENT: Denies: ear pain Respiratory: Denies: cough Cardiovascular: Denies: chest pain Endocrine: Denies: fatigue Gastrointestinal: Denies: abdominal pain Genitourinary: Denies: dysuria Musculoskeletal: Denies: back pain Skin: Reports: lesions (Legs) Neurological: Denies: weakness Past Medical History Past Medical History: Atrial Fibrillation, Heart Failure, COPD, Diabetes Mellitus, GERD/Reflux, Hyperlipidemia, Hypertension, Pneumonia, Renal Disease, Sleep Apnea/CPAP/BIPAP, Thyroid Disorder Additional Past Medical History / Comment(s): IDDM type II, chronic kidney disease stage III, ALLA uses CPAP most nights, narcolepsy, diabetic neuropathy bilateral hands and feet, chronic back pain, spinal stenosis, DJD, falls, diverticular dx, L vocal cord irregularity/lesion noted and pt states he followed up and it had gone down, hypothyroidism.EDENTULOUS History of Any Multi-Drug Resistant Organisms: MRSA, Other MDRO Date of last positivie culture/infection: 02/03/15, 05/02/16 MDRO Source:: Right leg, mdro pseudo urine Past Surgical History: Adenoidectomy, Cholecystectomy, Orthopedic Surgery, Tonsillectomy Additional Past Surgical History / Comment(s): 04/28/15 nasophargoscopy larygoscopy, colonoscopy, lt knee arthroscopy Past Anesthesia/Blood Transfusion Reactions: No Reported Reaction, Family History of Problems w/ Anesthesia Additional Past Anesthesia/Blood Transfusion Reaction / Comment(s): states father had cardiac arrest 2x's. Pt received blood in 1983 with tonsillectomy.PT IS CLAUSTERPHOBIC. Past Psychological History: Depression Additional Psychological History / Comment(s): . Smoking Status: Former smoker Past Alcohol Use History: None Reported Additional Past Alcohol Use History / Comment(s): Pt states he started smoking at age 9 yrs and WAS up to 2 ppd ,THEN QUIT SMORT PERIOD OF TIME BUT ONLY FEW CIG PER DAY Past Drug Use History: None Reported - Past Family History Sister(s) Additional Family Medical History / Comment(s): CARR'S Mother Family Medical History: Renal Disease Father Family Medical History: Cancer, Coronary Artery Disease (CAD), Diabetes Mellitus General Exam Limitations: physical limitation General appearance: obese Head exam: Present: atraumatic Eye exam: Present: normal appearance ENT exam: Present: normal oropharynx Neck exam: Present: normal inspection Respiratory exam: Present: normal lung sounds bilaterally Cardiovascular Exam: Present: irregular rhythm GI/Abdominal exam: Present: soft. Absent: tenderness Rectal exam: Present: normal inspection, other (Patient has greenish stool. Hemoccult not done secondary to dried blood in the area. No visible blood in stool). Absent: bloody stool exam: Present: other (Left testicle with small area of active oozing blood) Extremities exam: Present: pedal edema, other (Bilateral leg wounds) Neurological exam: Present: alert Psychiatric exam: Present: normal affect, normal mood Skin exam: Present: other (Multiple wounds bilateral legs with follow older) Course Vital Signs 10/06/16 10/06/16 10:25 13:12 Temperature 97 F L 97.5 F L Pulse Rate 96 55 L Respiratory 18 20 Rate Blood Pressure 110/61 134/70 O2 Sat by Pulse 98 100 Oximetry - Reevaluation(s) Reevaluation #1: 10/06/16 11:19 Repeat EKG shows normal sinus rhythm at 100. MI 148. QRS 90. QT 370. QTc 477. Left axis. Normal QRS. Normal ST-T. EKG Findings - EKG Comments: EKG Findings:: A. fib with a rate of 85. QRS 154. QT 440. QTc 5 5033. Right axis. Right bundle branch block. No acute ST change. Medical Decision Making - Medical Decision Making Patient reevaluated resting comfortably in bed. No bleeding at this time. Patient updated on results and plans. Case discussed with Dr. Quinn, who will admit for Dr. Lai. Infectious disease be consult for wounds. Nephrology will also be consulted. - Lab Data Result diagrams: 10/06/16 10:35 10/06/16 10:35 Lab Results 10/06/16 10/06/16 10/06/16 Range/Units 10:35 10:35 10:35 WBC 8.6 (3.8-10.6) k/uL RBC 3.38 L (4.30-5.90) m/uL Hgb 10.1 L (13.0-17.5) gm/dL Hct 31.4 L (39.0-53.0) % MCV 92.9 (80.0-100.0) fL MCH 29.9 (25.0-35.0) pg MCHC 32.1 (31.0-37.0) g/dL RDW 17.4 H (11.5-15.5) % Plt Count 142 L (150-450) k/uL Neutrophils % 60 % Lymphocytes % 18 % Monocytes % 5 % Eosinophils % 14 % Basophils % 1 % Neutrophils # 5.2 (1.3-7.7) k/uL Lymphocytes # 1.5 (1.0-4.8) k/uL Monocytes # 0.5 (0-1.0) k/uL Eosinophils # 1.2 H (0-0.7) k/uL Basophils # 0.1 (0-0.2) k/uL Hypochromasia Slight Anisocytosis Slight PT (9.0-12.0) sec INR (<1.1) APTT (22.0-30.0) sec Sodium 133 L (137-145) mmol/L Potassium 4.7 (3.5-5.1) mmol/L Chloride 88 L (98-107) mmol/L Carbon Dioxide 29 (22-30) mmol/L Anion Gap 16 mmol/L BUN 146 H* (9-20) mg/dL Creatinine 4.32 H (0.66-1.25) mg/dL Est GFR (MDRD) Af Amer 17 (>60 ml/min/1.73 sqM) Est GFR (MDRD) Non-Af 14 (>60 ml/min/1.73 sqM) Glucose 257 H (74-99) mg/dL Calcium 8.7 (8.4-10.2) mg/dL Total Bilirubin 0.6 (0.2-1.3) mg/dL AST 27 (17-59) U/L ALT 20 L (21-72) U/L Alkaline Phosphatase 171 H (38-126) U/L Total Creatine Kinase 110 (55-170) U/L CK-MB (CK-2) 2.2 (0.0-2.4) ng/mL CK-MB (CK-2) Rel Index 2.0 Troponin I <0.012 (0.000-0.034) ng/mL Total Protein 7.8 (6.3-8.2) g/dL Albumin 3.8 (3.5-5.0) g/dL 10/06/16 Range/Units 10:35 WBC (3.8-10.6) k/uL RBC (4.30-5.90) m/uL Hgb (13.0-17.5) gm/dL Hct (39.0-53.0) % MCV (80.0-100.0) fL MCH (25.0-35.0) pg MCHC (31.0-37.0) g/dL RDW (11.5-15.5) % Plt Count (150-450) k/uL Neutrophils % % Lymphocytes % % Monocytes % % Eosinophils % % Basophils % % Neutrophils # (1.3-7.7) k/uL Lymphocytes # (1.0-4.8) k/uL Monocytes # (0-1.0) k/uL Eosinophils # (0-0.7) k/uL Basophils # (0-0.2) k/uL Hypochromasia Anisocytosis PT 11.8 (9.0-12.0) sec INR 1.2 (<1.1) APTT 28.0 (22.0-30.0) sec Sodium (137-145) mmol/L Potassium (3.5-5.1) mmol/L Chloride (98-107) mmol/L Carbon Dioxide (22-30) mmol/L Anion Gap mmol/L BUN (9-20) mg/dL Creatinine (0.66-1.25) mg/dL Est GFR (MDRD) Af Amer (>60 ml/min/1.73 sqM) Est GFR (MDRD) Non-Af (>60 ml/min/1.73 sqM) Glucose (74-99) mg/dL Calcium (8.4-10.2) mg/dL Total Bilirubin (0.2-1.3) mg/dL AST (17-59) U/L ALT (21-72) U/L Alkaline Phosphatase (38-126) U/L Total Creatine Kinase (55-170) U/L CK-MB (CK-2) (0.0-2.4) ng/mL CK-MB (CK-2) Rel Index Troponin I (0.000-0.034) ng/mL Total Protein (6.3-8.2) g/dL Albumin (3.5-5.0) g/dL Disposition Clinical Impression: Acute renal failure (ARF), Leg ulcer Disposition: ADMITTED IP TO THIS HOSP
[2016-10-06 11:14] LABS: Anisocytosis Slight; Basophils # (A) 0.1 k/uL (0-0.2); Basophils % (A) 1 %; CH 29.9; CHCM 32.4; Eosinophils # (A) 1.2 k/uL (0-0.7); Eosinophils % (A) 14 %; HCT 31.4 % (39.0-53.0); HDW 3.21; HGB 10.1 gm/dL (13.0-17.5); Hypochromasia Slight; Luc % (Auto) 2; Lymphocytes # (A) 1.5 k/uL (1.0-4.8); Lymphocytes % (A) 18 %; MCH 29.9 pg (25.0-35.0); MCHC 32.1 g/dL (31.0-37.0); MCV 92.9 fL (80.0-100.0); Mean Platelet Volume 7.6; Monocytes # (A) 0.5 k/uL (0-1.0); Monocytes % (A) 5 %; Neutrophils # (A) 5.2 k/uL (1.3-7.7); Neutrophils % (A) 60 %; RBC 3.38 m/uL (4.30-5.90); RDW 17.4 % (11.5-15.5); WBC 8.6 k/uL (3.8-10.6); WBC (Perox) 8.98
[2016-10-06 11:22] LABS: Calcium 8.7 mg/dL (8.4-10.2); Potassium 4.7 mmol/L (3.5-5.1); Total Bilirubin 0.6 mg/dL (0.2-1.3); Total Protein 7.8 g/dL (6.3-8.2)
[2016-10-06 11:48] LABS: Creatine Kinase 110 U/L (55-170)
[2016-10-06 12:00] LABS: Creatine Kinase MB 2.2 ng/mL (0.0-2.4); Troponin I <0.012 ng/mL (0.000-0.034)
[2016-10-06 12:31] LABS: INR 1.2 (<1.1); Prothrombin Time 11.8 sec (9.0-12.0)
[2016-10-06] MEDS ORDERED: NALOXONE 0.4 MG/ML 1 ML VIAL IV PRN (14:13)
[2016-10-06] MEDS ORDERED: SODIUM CHLORIDE 0.9% 1,000 ML IV SCH (14:15)
[2016-10-06] MEDS ORDERED: SODIUM CHLORIDE 0.65% NASAL SPRAY 44 ML BTL INTRANASAL PRN (17:44)
[2016-10-06] MEDS ORDERED: LOPERAMIDE 2 MG CAP PO PRN (17:44)
[2016-10-06] MEDS ORDERED: MAG HYDROX/AL HYDROX/SIMETH 30 ML CUP PO PRN (17:44)
[2016-10-06] MEDS ORDERED: ALPRAZolam 0.5 MG TAB PO PRN (17:44)
[2016-10-06] MEDS ORDERED: MENTHOL-ZINC OXIDE OINT 113 GM TUBE TOPICAL PRN (17:44)
[2016-10-06] MEDS ORDERED: NITROGLYCERIN SL TABS 0.4 MG TAB SUBLINGUAL PRN (17:44)
[2016-10-06] MEDS ORDERED: ACETAMINOPHEN TAB 325 MG TAB PO PRN (17:44)
--- NOTE | 2016-10-06 18:25 | XR ---
EXAMINATION TYPE: XR chest 1V portable DATE OF EXAM: 10/06/2016 6:19 PM COMPARISON: 07/11/2016 HISTORY: Obesity heart failure TECHNIQUE: Single frontal view of the chest is obtained. FINDINGS: There is no heart failure nor pneumonic infiltrate. Costophrenic angles are clear. There a re no hilar masses. IMPRESSION: Negative single view chest x-ray exam. No change.
[2016-10-06] MEDS: FUROSEMIDE 80 MG TAB PO SCH (19:22)
[2016-10-06] MEDS: NYSTATIN 100,000UNIT/GM CREAM 30 GM TUBE TOPICAL SCH (19:23)
[2016-10-06] MEDS: LEVALBUTEROL NEB 1.25 MG/3 ML AMP INHALATION SCH (19:59)
[2016-10-06] MEDS: CEFTAROLINE FOSAMIL 400 MG in SODIUM CHLORIDE 0.9% 250 ML IVPB SCH (20:15)
[2016-10-06] MEDS: INSULIN GLARGINE 100 UNIT/ML 10 ML VIAL SQ SCH (20:15)
[2016-10-06] MEDS: DOXEPIN 10 MG CAP PO SCH (20:27)
[2016-10-06] MEDS: SACUBITRIL/VALSARTAN 24 MG-26 MG TABLET PO SCH (20:28)
[2016-10-06] MEDS: ASPIRIN 81 MG CHEW PO SCH (20:28)
[2016-10-06] MEDS: METOPROLOL TARTRATE 25 MG TAB PO SCH (20:28)
[2016-10-06] MEDS: EDOXABAN TOSYLATE 30 MG TABLET PO SCH (20:28)
[2016-10-06] MEDS: PREGABALIN 75 MG CAP PO SCH (20:29)
--- NOTE | 2016-10-06 20:47 | CONS ---
DATE OF CONSULTATION: 10/06/2016 REASON FOR CONSULTATION: Bilateral lower extremity wound and cellulitis. HISTORY OF PRESENT ILLNESS: The patient is a 60-year-old well known to my service from previous treatment for lower extremity wound and cellulitis. The patient presented to the ER with concern for some bleeding and wound on his lower extremity. The patient was evaluated by the physician with no evidence of any active bleeding from the scrotal area. He was noticed to have wounds on both legs, more marked on the left leg; hence, ID was consulted for further recommendation regarding the same. Patient has been complaining of pain in the legs, especially left leg, which is dull, 3 to 4 out of 10, no radiation. Patient denies having any significant chest pain or shortness of breath. Occasional cough. No abdominal pain and no diarrhea. Overall the patient himself is not a very good historian. REVIEW OF SYSTEMS: CONSTITUTIONAL: Positive for weakness. No fever. EYES: No complaint. ENT: No complaint. RESPIRATORY: As per HPI. CARDIOVASCULAR: No complaint. GENITOURINARY: No complaint. GASTROINTESTINAL: No complaint. MUSCULOSKELETAL: As per HPI. INTEGUMENTARY: As per HPI. PSYCHOLOGICAL: No complaint. ENDOCRINE: No complaint. NEUROLOGICAL: No complaint. PAST MEDICAL HISTORY: Atrial fibrillation, heart failure, COPD, diabetes mellitus, gastroesophageal reflux disease, hypertension, hyperlipidemia, pneumonia, renal insufficiency, diabetic neuropathy, previous Pseudomonas infection. PAST SURGICAL HISTORY: Appendectomy, adenoidectomy, cholecystectomy, tonsillectomy, laryngoscopy and left knee arthroscopy. SOCIAL HISTORY: Remote history of smoking. No drinking or drug use. FAMILY HISTORY: Mother with a history of renal disease and father with history of coronary artery disease. ALLERGIES: No known drug allergies. Medications currently include the patient is on: 1. Lenore and 2. Protonix. 3. A few days of Bactrim and 4. IV fluid. On examination, blood pressure 94/72 with a pulse of 77, temperature 96.8. He is 95% on 2L nasal cannula. General description is a middle-aged male lying in bed in no distress. No tachypnea or accessory muscle of respiration use. HEENT shows pallor. No scleral icterus. Oral mucous membrane is dry. NECK: Trachea central. No thyromegaly. LUNGS: Unlabored breathing. Clear to auscultation anteriorly. HEART: S1, S2. Regular rate and rhythm. ABDOMEN: Soft. No tenderness. BILATERAL LEGS: Especially left leg did have 2 wounds with no significant slough tissue, minimally surrounding erythema. No foul-smelling drainage. NEUROLOGICAL: Patient is awake and alert and oriented x2. Mood and affect normal. LABS: Hemoglobin 10.1, white count 8.6 with BUN of 146, creatinine 4.32. He did have cultures obtained from the leg wounds that are gram-positive cocci in clusters. DIAGNOSTIC IMPRESSION: 1. Patient with bilateral lower extremity wound with secondary cellulitis. The patient did have a history of methicillin-resistant Staphylococcus aureus infection with the wound culture now showing gram-positive cocci in clusters, likely methicillin-resistant Staphylococcus aureus infection. 2. Patient has history of chronic renal insufficiency with elevated creatinine and high risk of nephrotoxicity. PLAN: 1. Discontinue Zosyn, as clinically the patient is low probability for gram- negative infection. 2. The patient will be started on Teflaro 400 IV q.12. 3. Will apply Aquacel Silver dressing to the wound followed by an Aftab wrap. 4. Will follow up on the clinical condition and cultures to further adjust the medication if needed. 5. Thank you for this consultation. Will follow this patient along with you. RADHA
[2016-10-06] MEDS ORDERED: PRAVASTATIN SODIUM 40 MG TAB PO SCH (21:00)
[2016-10-06] MEDS ORDERED: PIPERACILLIN-TAZOBACTAM 3.375 GM in DEXTROSE/WATER 1 50ML.BAG IVPB SCH (21:00)
[2016-10-06] MEDS ORDERED: NON-FORMULARY DRUG (Colloidal Oatmeal [Eucerin Eczema Relief] 1 APPLIC) TOPICAL SCH (21:00)
[2016-10-06 21:34] LABS: Glucose,Whole Blood 173 mg/dL (75-99)
--- NOTE | 2016-10-06 22:20 | HP ---
DATE OF ADMISSION: 10/06/2016 Chief complaint of gastrointestinal bleed. HISTORY OF PRESENT ILLNESS: This 60-year-old gentleman with a past medical history significant for morbid obesity, BMI 56, history of atrial fibrillation, history of CHF, COPD, history of diabetes mellitus, GERD, hypertension, hyperlipidemia, history of sleep apnea, history of methicillin-resistant Staphylococcus aureus being followed by Dr. Lai at [facility], who has been a resident of [facility] for more than one year, currently patient is complaining of tiredness and weakness. The patient also suspected to have GI bleed. Left scrotal bleeding was noted from the ER. Dressing was done. The patient was admitted for further evaluation and treatment. The patient also has significant renal failure and Dr. Ellis apparently planning for hemodialysis according to him. There is no history of fever, rigors or chills. No history of headache or loss of consciousness. The patient also has cellulitis of both legs also. PAST MEDICAL HISTORY: History of atrial fibrillation, CHF, COPD, GERD, history of hypertension, hyperlipidemia, history of diabetes, history of adenoidectomy. Medications prior to admission, home medications list includes: 1. Oxycodone 50 mg q.6 p.r.n. 2. Glucotrol 10 mg p.o. daily. 4. Entresto 25 mg p.o. b.i.d. 5. Silvadene one application q.h.s. 6. Lyrica 75 mg p.o. daily. 7. Pravachol 40 mg. 8. Pen-VK 250 mg p.o. daily. 9. Paxil 40 mg p.o. daily. 10. Prilosec 20 mg p.o. daily. 11. Nystatin one application topically b.i.d. 12. Mycostatin one application b.i.d. 13. Nitrostat 0.4 sublingual p.r.n. 14. Mylanta 30 mL q.4 p.r.n. 15. Lopressor 25 mg p.o. b.i.d. 16. Zaroxolyn 2.5 mg p.o. 17. Ritalin 20 mg p.o. b.i.d. 18. Biofreeze one application topically b.i.d. p.r.n. 19. Imodium 2 mg p.o. q.i.d. p.r.n. 20. Synthroid 150 mcg p.o. daily. 21. Xopenex 1.25 t.i.d. 22. Lantus 22 units subcutaneous at bedtime. 23. Humalog 10 units subcu a.c. t.i.d. 24. Lasix 80 mg p.o. b.i.d. 25. Vitamin D2 50,000 p.o. Sunday. 26. Savaysa 30 mg p.o. q.h.s. 27. Sanaquan 10 mg q.h.s. 29. Eucerine one application topically b.i.d. 30. Ecotrin 81 mg q.h.s. 31. Zyloprim 300 mg p.o. daily. 32. Tylenol 650 q.4 p.r.n. q.6. p.r.n. 33. Xanax 0.5 q8h p.r.n. ALLERGIES: None. FAMILY HISTORY: History of renal disease disease in the family. SOCIAL HISTORY: No history of smoking, no history of alcohol intake. REVIEW OF SYSTEMS: ENT: Diminishing hearing, diminished vision. CARDIOVASCULAR: No angina. RESPIRATORY: As mentioned earlier. GASTROINTESTINAL: As mentioned earlier. : No dysuria. Nervous system: No numbness or weakness. ALLERGY/IMMUNOLOGY: No asthma or hayfever. MUSCULOSKELETAL: As mentioned earlier. HEMATOLOGY/ONCOLOGY: No history of anemia. ENDOCRINE: As mentioned earlier. CONSTITUTIONAL: As mentioned earlier. DERMATOLOGY: Negative. RHEUMATOLOGY: Negative. PSYCHIATRY: As mentioned earlier. PHYSICAL EXAMINATION: The patient is alert and oriented times three. Pulse is 77, blood pressure 94/72, respirations 18, temperature 97.8, pulse ox 94% on 2 L. HEENT: Conjunctivae normal. Oral mucosa moist. NECK: No jugular venous distention. No carotid bruit. No lymph node enlargement. Obese. CARDIOVASCULAR: S1, S2. No S3, no S4. Ejection systolic murmur. RESPIRATORY: Breath sounds diminished at the bases. Bilateral scattered rhonchi and crackles. Otherwise, respirations, a few crackles and rhonchi present. ABDOMEN: Soft, obese, nontender. No mass palpable. Legs: Bilateral leg edema, swelling and some scrotal erythema and swelling and some bleeding and some excoriation also present. SKIN: As mentioned earlier. LYMPHATICS: No lymph nodes palpable in the neck, axillae or groin. JOINTS: No active deforming arthropathy. Nervous system: Higher functions as mentioned earlier. Cranial nerves as mentioned. Moves all 4 limbs. Mild diffuse weakness. LABS: WBC 8.7, hemoglobin is 10.1, sodium 133. Creatinine is 4.32. ASSESSMENT: 1. Possible congestive heart failure acute exacerbation with acute on chronic systolic dysfunction, ejection fraction about 20 to 25%. 2. Possible scrotal cellulitis and bleeding from the left side of the scrotum. 3. Bilateral leg cellulitis. 4. Super morbid obesity, body mass index 56. 5. Gait dysfunction. 6. History of atrial fibrillation. 7. History of congestive heart failure. 8. History of chronic obstructive pulmonary disease. 9. Diabetes, type II. 10. Gastroesophageal reflux disease. 11. Hypertension. 12. Hyperlipidemia. 13. History of pneumonia. 14. History of sleep apnea. 15. History of hypothyroidism. 16. History of diabetes Type 2. 17. History of chronic kidney disease. 18. History of sleep apnea, uses CPAP. 19. Degenerative joint disease. 20. History of hypothyroidism. 21. History Methicillin-resistant Staph aureus. 22. History of cholecystectomy. 23. Depression, not otherwise specified. 24. Remote history of nicotine dependence. 25. FULL CODE. RECOMMENDATIONS AND DISCUSSION: In this 60-year-old gentleman who presented with multiple complex medical issues, we will monitor the patient closely. Continue the current medications. Continue symptomatic treatment. Otherwise, we will initiate close monitoring. Consult nephrology and cardiology. The patient has significant cardiac and renal issues also. Also obtain a chest x-ray and continue to monitor. Prognosis guarded because of multiple complex medical issues. See orders for further details. A copy of dictation being forward to Dr. Lai who is the primary physician. RADHA
[2016-10-07] MEDS: METHYLPHENIDATE HCL 10 MG TAB PO SCH ×2 (05:15→16:16)
[2016-10-07] MEDS: LEVOTHYROXINE 75 MCG TAB PO SCH (05:15)
[2016-10-07 07:40] LABS: Glucose,Whole Blood 154 mg/dL (75-99)
[2016-10-07] MEDS: CEFTAROLINE FOSAMIL 400 MG in SODIUM CHLORIDE 0.9% 250 ML IVPB SCH (08:18)
[2016-10-07] MEDS: INSULIN LISPRO (humaLOG) 300 UNIT/3 ML VIAL SQ SCH ×3 (08:19→17:22)
[2016-10-07] MEDS: glipiZIDE 10 MG TAB PO SCH (08:21)
[2016-10-07] MEDS: PARoxetine 20 MG TAB PO SCH (08:21)
[2016-10-07] MEDS: FUROSEMIDE 80 MG TAB PO SCH (08:21)
[2016-10-07] MEDS: NYSTATIN 100,000UNIT/GM CREAM 30 GM TUBE TOPICAL SCH ×2 (08:22→20:59)
[2016-10-07] MEDS: SACUBITRIL/VALSARTAN 24 MG-26 MG TABLET PO SCH ×2 (08:22→20:58)
[2016-10-07] MEDS: METOPROLOL TARTRATE 25 MG TAB PO SCH ×2 (08:22→20:58)
[2016-10-07 08:34] LABS: Anisocytosis Slight; Basophils % (A) 0 %; CH 30.5; Eosinophils # (A) 1.1 k/uL (0-0.7); Eosinophils % (A) 12 %; HCT 31.3 % (39.0-53.0); HDW 3.44; HGB 10.6 gm/dL (13.0-17.5); Luc # (Auto) 0.32; Luc % (Auto) 4; Lymphocytes # (A) 1.8 k/uL (1.0-4.8); Lymphocytes % (A) 19 %; MCH 30.7 pg (25.0-35.0); MCV 90.4 fL (80.0-100.0); Mean Platelet Volume 8.1; Monocytes # (A) 0.6 k/uL (0-1.0); Monocytes % (A) 7 %; Neutrophils # (A) 5.3 k/uL (1.3-7.7); Neutrophils % (A) 58 %; Poikilocytosis Slight; RBC 3.46 m/uL (4.30-5.90); RDW 17.5 % (11.5-15.5); WBC 9.1 k/uL (3.8-10.6)
[2016-10-07] MEDS ORDERED: PANTOPRAZOLE 40 MG/10 ML VIAL IV SCH (09:00)
[2016-10-07] MEDS ORDERED: METOLAZONE 2.5 MG TAB PO SCH (09:00)
[2016-10-07] MEDS ORDERED: NON-FORMULARY DRUG (Omeprazole [Prilosec] 20 MG) PO SCH (09:00)
[2016-10-07] MEDS ORDERED: ALLOPURINOL 300 MG TAB PO SCH (09:00)
[2016-10-07] MEDS: PREGABALIN 75 MG CAP PO SCH ×2 (10:10→21:01)
[2016-10-07 10:40] LABS: Anion Gap 18 mmol/L; Calcium 9.2 mg/dL (8.4-10.2); Carbon Dioxide 25 mmol/L (22-30); Chloride 93 mmol/L (98-107); Glucose 137 mg/dL (74-99); Sodium 136 mmol/L (137-145); Total Bilirubin 0.8 mg/dL (0.2-1.3)
[2016-10-07 10:42] LABS: Non-African American GFR(MDRD) 15 (>60 ml/min/1.73 sqM)
[2016-10-07 10:43] LABS: Potassium 5.4 mmol/L (3.5-5.1)
[2016-10-07 10:44] LABS: ALT 22 U/L (21-72); AST 41 U/L (17-59); Alkaline Phosphatase 139 U/L (38-126); Blood Urea Nitrogen >120 mg/dL (9-20); Total Protein 8.3 g/dL (6.3-8.2)
--- NOTE | 2016-10-07 10:51 | P.NPCON ---
History of Present Illness - Reason for Consult acute renal failure, chronic renal failure - History of Present Illness Reason for consultation: Acute kidney injury on chronic kidney disease History of present illness: Patient is a 60-year-old male seen in renal consultation for acute kidney injury on chronic kidney disease. Patient has chronic kidney disease stage IV secondary to nephrosclerosis and cardiorenal syndrome with baseline creatinine in the range of 3.2-3.4 from April 2016. His creatinine is elevated at 4.3 and BUN is 146 this admission. He does of systolic CHF with ejection fraction of 20-25% and is maintained on Lasix 80 mg orally twice daily along with metolazone. He presented to the hospital with lower extremity wounds. He is currently maintained on IV antibiotics and infectious disease is following. His chest x-ray reveals no evidence of fluid overload and he has no pitting edema in his lower extremities. He denies chest pain or shortness of breath. Appetite is fair. Denies nausea or vomiting. He has been voiding. No hematuria or dysuria. He follows with us as an outpatient and is to follow- up with vascular surgery next month for vein mapping for AV fistula. Vital signs are stable. General: The patient appeared well nourished and normally developed. HEENT: Head exam is unremarkable. Neck is without jugular venous distension. LUNGS: Lungs are clear to auscultation and percussion. Breath sounds decreased. HEART: Rate and Rhythm are regular. First and second heart sounds normal. No murmurs, rubs or gallops. ABDOMEN: Abdominal exam reveals normal bowel sounds. Non-tender and non- distended. No evidence of peritonitis. EXTREMITITES: No edema. Wounds are wrapped with no obvious drainage. Past Medical History Past Medical History: Atrial Fibrillation, Heart Failure, COPD, Diabetes Mellitus, GERD/Reflux, Hyperlipidemia, Hypertension, Pneumonia, Renal Disease, Sleep Apnea/CPAP/BIPAP, Thyroid Disorder Additional Past Medical History / Comment(s): IDDM type II, chronic kidney disease stage III, ALLA uses CPAP most nights, narcolepsy, diabetic neuropathy bilateral hands and feet, chronic back pain, spinal stenosis, DJD, falls, diverticular dx, L vocal cord irregularity/lesion noted and pt states he followed up and it had gone down, hypothyroidism.EDENTULOUS History of Any Multi-Drug Resistant Organisms: MRSA, Other MDRO Date of last positivie culture/infection: 02/03/15, 05/02/16 MDRO Source:: Right leg, mdro pseudo urine Past Surgical History: Adenoidectomy, Cholecystectomy, Orthopedic Surgery, Tonsillectomy Additional Past Surgical History / Comment(s): 04/28/15 nasophargoscopy larygoscopy, colonoscopy, lt knee arthroscopy Past Anesthesia/Blood Transfusion Reactions: No Reported Reaction, Family History of Problems w/ Anesthesia Additional Past Anesthesia/Blood Transfusion Reaction / Comment(s): states father had cardiac arrest 2x's. Pt received blood in 1983 with tonsillectomy.PT IS CLAUSTERPHOBIC. Past Psychological History: Depression Additional Psychological History / Comment(s): . Smoking Status: Former smoker Past Alcohol Use History: None Reported Additional Past Alcohol Use History / Comment(s): Pt states he started smoking at age 9 yrs and WAS up to 2 ppd ,THEN QUIT SMORT PERIOD OF TIME BUT ONLY FEW CIG PER DAY Past Drug Use History: None Reported - Past Family History Sister(s) Additional Family Medical History / Comment(s): CARR'S Mother Family Medical History: Renal Disease Father Family Medical History: Cancer, Coronary Artery Disease (CAD), Diabetes Mellitus Medications and Allergies Home Medications Medication Instructions Recorded Confirmed Type Aspirin EC [Ecotrin Low Dose] 81 mg PO HS 10/11/15 10/06/16 History Ergocalciferol [Vitamin D2 50,000 unit PO MO 11/24/15 10/06/16 History (DRISDOL)] Omeprazole [PriLOSEC] 20 mg PO DAILY 11/24/15 10/06/16 History Levalbuterol Nebulized [Xopenex 1.25 mg INHALATION RT-TID 11/25/15 10/06/16 History Nebulized] Sacubitril/Valsartan [Entresto 24 1 tab PO BID 11/25/15 10/06/16 History mg-26 mg Tablet] Acetaminophen Tab [Tylenol] 325 mg PO Q6H PRN 05/02/16 10/06/16 History INSULIN LISPRO (humaLOG) [humaLOG 10 units SQ TID@0700,1100,1700 05/02/16 History (formulary)] Levothyroxine Sodium [Synthroid] 150 mcg PO DAILY 05/02/16 10/06/16 History Loperamide [Imodium] 2 mg PO QID PRN 05/02/16 10/06/16 History Menthol [Biofreeze] 1 applic TOPICAL BID PRN 05/02/16 10/06/16 History Metolazone [Zaroxolyn] 2.5 mg PO DAILY 05/02/16 10/06/16 History Nystatin 100,000 Unit/gm Powd 1 applic TOPICAL BID 05/02/16 10/06/16 History [Mycostatin Powder] Pravastatin Sodium [Pravachol] 40 mg PO HS 05/02/16 10/06/16 History SILVER sulfADIAZINE CREAM 1 applic TOPICAL HS 05/02/16 10/06/16 History [Silvadene Cream] Allopurinol [Zyloprim] 300 mg PO DAILY 07/08/16 10/06/16 History Edoxaban Tosylate [Savaysa] 30 mg PO HS 07/08/16 10/06/16 History Mylanta Susp 30 ml PO Q4H PRN 07/08/16 10/06/16 History Nitroglycerin Sl Tabs [Nitrostat] 0.4 mg SUBLINGUAL Q5M PRN 07/08/16 10/06/16 History PARoxetine HCL [Paxil] 40 mg PO DAILY@0700 07/08/16 10/06/16 History Penicillin V Potassium [Pen Vee K] 250 mg PO DAILY 07/08/16 10/06/16 History Sodium Chloride [[place]] 1 spray EA NOSTRIL Q8H PRN 07/08/16 10/06/16 History oxyCODONE HCL 15 mg PO Q6HR PRN 07/08/16 10/06/16 History Acetaminophen Tab [Tylenol] 650 mg PO Q4H PRN 10/06/16 10/06/16 History Colloidal Oatmeal [Eucerin Eczema 1 applic TOPICAL BID 10/06/16 10/06/16 History Relief] Darbepoetin Tez [Aranesp] 100 mcg IJ MO 10/06/16 10/06/16 History Doxepin [SINEquan] 10 mg PO HS 10/06/16 10/06/16 History Furosemide [Lasix] 80 mg PO BID 10/06/16 10/06/16 History Insulin Glargine [Lantus] 22 unit SQ HS@199910/06/16 10/06/16 History Methylphenidate HCl [Ritalin] 20 mg PO BID@0500,1500 10/06/16 10/06/16 History Metoprolol Tartrate [Lopressor] 25 mg PO BID 10/06/16 10/06/16 History Nystatin 100,000Unit/gm Cream 1 applic TOPICAL BID 10/06/16 10/06/16 History [Mycostatin Cream] glipiZIDE [Glucotrol] 10 mg PO DAILY 10/06/16 10/06/16 History Allergies Allergy/AdvReac Type Severity Reaction Status Date / Time No Known Allergies Allergy Verified 10/06/16 10:32 Physical Exam Vitals: Vital Signs Temp Pulse Pulse Resp BP BP Pulse Ox 10/07/16 07:00 97.4 F L 114 H 17 116/76 95 10/06/16 23:55 18 10/06/16 22:57 97.6 F 100 18 108/64 95 10/06/16 20:09 80 10/06/16 19:59 80 10/06/16 15:20 96.8 F L 77 18 94/72 95 Intake and Output 10/06/16 10/07/16 10/07/16 22:59 06:59 14:59 Intake Total 540 530 Balance 540 530 Intake: Intake, IV Titration 410 Amount Ceftaroline Fosamil 400 250 mg In Sodium Chloride 0.9 % 250 ml @ 250 mls/hr IVPB Q12HR VASILIY Rx#: [id number] Sodium Chloride 0.9% 1, 160 000 ml @ 20 mls/hr IV . Q24H VASILIY Rx#:[id number] Oral 540 120 Other: Voiding Method Urinal Diaper # Voids 3 1 3 Weight 150 kg 150 kg Patient Weight 10/08/16 06:59 Weight 150 kg Results - Lab Results Most recent lab results Calcium 8.7 mg/dL (8.4-10.2) 10/06/16 10:35 10/07/16 07:44 10/06/16 10:35 Assessment and Plan Plan: Assessment: #1. Nonoliguric acute kidney injury mostly prerenal in nature secondary to diuretics. Creatinine up to 4.3 today. Rule out ALLERGIC interstitial nephritis as he's been on antibiotics. #2. Chronic kidney disease stage IV secondary to nephrosclerosis and cardiorenal syndrome with baseline creatinine near 3.2-3.4. #3. Systolic CHF with ejection fraction of 20-25%. Compensated. #4. Bilateral lower extremity wounds. #5. Insulin-dependent diabetes mellitus. Plan: Start normal saline to be run at 50 mL an hour. Hold diuretics for now. Antibiotics per infectious disease recommendations. Check urinalysis. Check urine eosinophils. Strict I's and O's. Repeat electrolytes in the morning. I discussed with the patient that if no improvement in his renal function in the next 24-48 hours, will need to start renal replacement therapy. He understands and is in agreement. Thank you for the consultation. I will continue to follow the patient with you during his hospital stay.
[2016-10-07] MEDS: LEVALBUTEROL NEB 1.25 MG/3 ML AMP INHALATION SCH ×2 (11:13→12:25)
[2016-10-07 11:16] LABS: Manual Review Performed
[2016-10-07 11:53] LABS: Glucose,Whole Blood 285 mg/dL (75-99)
[2016-10-07] MEDS ORDERED: SODIUM POLYSTYRENE SULFONATE 15 GM/60 ML BOTTLE PO ONE (12:00)
[2016-10-07] MEDS: FLUCONAZOLE 100 MG TAB PO SCH (12:14)
[2016-10-07] MEDS: SODIUM CHLORIDE 0.9% 1,000 ML IV SCH (12:15)
[2016-10-07] MEDS: ALBUTEROL NEBULIZED 2.5 MG/3 ML INHALATION SCH ×2 (12:24→19:35)
--- NOTE | 2016-10-07 12:47 | CONS ---
DATE OF CONSULTATION: 10/07/2016 REASON FOR CONSULT: Severe COPD and obstructive sleep apnea. HISTORY OF PRESENTING ILLNESS: Mr. Bill Mcnair is a 60-year-old morbidly obese male with history of pulmonary hypertension, cor pulmonale and chronic cellulitis of the lower extremity. Patient has a history of congestive heart failure as well. Patient is well known to me, has a history of obstructive sleep apnea. He has a CPAP machine at home, but of note, he is not very compliant, using it off and on. This patient presented into the emergency department with issues associated with perineal bleeding, likely from scrotal bleeding versus GI bleeding. Patient has chronic swelling of the lower extremities, also has sores in the lower extremity. Patient overall a poor historian. Most of the data has been obtained from the chart. Patient has been using his nebulizer machine. On supplemental oxygen; however, BiPAP is being used off and on. Past medical history is significant for: 1. Chronic atrial fibrillation, chronic systolic and diastolic heart failure. 2. Severe COPD, emphysema. 3. Chronic hypoxic respiratory failure. 4. Advanced diabetes mellitus with complications requiring insulin. 5. GERD. 6. Dyslipidemia. 7. Hypertension, hypertensive cardiovascular disease. 8. Chronic renal failure, which is being monitored and observed. 9. Obstructive sleep apnea with component of obesity hypoventilation. 10. History of thyroid disorder. 11. Stage 3 renal failure. 12. History of diabetic neuropathy. 13. Chronic back pain and spinal stenosis. 14. History of diverticulosis. 15. Left vocal cord irregularity. 16. Hypothyroidism. Past surgical history significant for status post adenoidectomy, cholecystectomy, tonsillectomy, history of upper laryngoscopy in the past. Patient also has a history of significant bleeding post tonsillectomy. Allergies include no known drug allergy. Medications include: 1. Glucotrol 10 mg daily. 2. Also on nystatin powder as needed. 3. Metoprolol is 25 b.i.d. 4. Ritalin 20 mg p.o. 2 times a day. 5. Lantus 22 units at bedtime. 6. Lasix 80 mg 2 times a day and 7. Doxepin is 10 mg at bedtime. 8. Aranesp 100 mcg daily. 9. Also on Tylenol as needed. 10. Oxycodone OCN. 11. Pen-VK 250 mg daily. 12. Paxil 40 mg. 13. Nitrostat. 14. Also on Mylanta. 15. Savaysa. 16. Zyloprim. 17. Also on Pravachol. 18. Zaroxolyn. 19. Biofreeze. 20. Imodium. 21. Synthroid. 22. Sliding scale insulin. 23. Aspirin 81 mg daily. 24. Vitamin D. 25. Prilosec. 26. Xopenex unit dose updraft 4 times a day. 27. Also on ( ) and 28. Valsartan 1 tablet 2 times a day. Current medications while in the hospital include above; also on: 1. Ceftaroline 250 mg q.12. 2. Also has been on Savaysa 30 mg daily along with 3. Lasix 80 mg 2 times a day and 4. Xopenex. 5. Rest of the medicines are being continued with 6. KVO IV fluids. FAMILY HISTORY AND SOCIAL HISTORY: Otherwise unremarkable and noncontributory. REVIEW OF SYSTEMS: Otherwise unremarkable and noncontributory except as dictated above. On examination, most recent vitals include blood pressure is 160/76 with respiratory rate 17, pulse 110, temperature 97, saturating 95% on 2L oxygen. HEENT: Significant for very narrow pharyngeal opening. Neck veins are prominent. LUNGS: Bilateral poor air entry is present without significant rales or rhonchi. A few crackles at bases cannot be excluded. HEART: Regular rate and rhythm. S1 and S2 audible. ABDOMEN: Soft. EXTREMITIES: +3 edema, covered with dressing. Labs are reviewed. X-ray is unremarkable. No obvious infiltrate identified. The laboratory data reviewed. White cells 9100, hemoglobin 10, hematocrit 31, platelet count of 135,000. The BUN and creatinine are 146 and 4.36 which is significantly up from baseline. Sodium is 133. Rest of the chemistry is normal. Sugars are 173 and 154. IMPRESSION: 1. Sleep-disordered breathing, sleep apnea and severe chronic obstructive pulmonary disease. Both appear to be stable. Patient has been counseled at length about using the CPAP machine on a regular basis. Have initiated bi-level positive airway pressure while in the hospital and will put patient on 10/5 setting each night and p.r.n. during the day. 2. Severe chronic obstructive pulmonary disease. Patient does not appear to be in chronic obstructive pulmonary disease exacerbation. Will continue breathing treatments. Will hold on the steroids. 3. Acute renal failure. The patient's diuretics are being adjusted, gently being rehydrated. Note that Renal Service has been consulted. 4. Cardiomyopathy with acute on chronic systolic and diastolic heart failure. 5. Likely severe pulmonary hypertension related to multifactorial process. 6. Component of obesity hypoventilation cannot be excluded, as CO2 is normal, but is on the high normal side. 7. Diabetes mellitus. Significant complications and sequelae. PLAN: As above. Continue supportive care. Follow clinical course closely. Further recommendations pending. Prognosis is guarded at this point in time. Will follow.
[2016-10-07 14:50] LABS: Appearance,Urine Clear (Clear); Bilirubin,Urine Negative (Negative); Glucose,Urine (UA) Negative (Negative); Ketones,Urine Negative (Negative); Leukocyte Esterase,Urine Negative (Negative); Nitrite,Urine Negative (Negative); Protein,Urine Negative (Negative); Specific Gravity,Urine 1.007 (1.001-1.035); UA Billing (MACRO vs. MICRO) CHEM; Urobilinogen,Urine <2.0 mg/dL (<2.0)
[2016-10-07] MEDS ORDERED: DAPTOmycin 500 MG in SODIUM CHLORIDE 0.9% 50 ML IV SCH (17:00)
[2016-10-07] MEDS: DAPTOmycin 500 MG in SODIUM CHLORIDE 0.9% 50 ML IV SCH (17:19)
[2016-10-07 17:29] LABS: Glucose,Whole Blood 98 mg/dL (75-99)
--- NOTE | 2016-10-07 18:17 | P.CRDCN ---
History of Present Illness Consult date: 10/07/16 History of present illness: This 60-year-old gentleman with history of cardiomyopathy, congestive heart failure and also chronic atrial fibrillation was brought to the hospital this time with complaints of a concern for bleeding and also worsening kidney function. Patient denied any chest pain. Denied any undue shortness of breath. A chest x-ray did not reveal any evidence of fluid overload. Patient didn't have any significant edema. Patient has been treated with Lasix and metolazone. His creatinine went from baseline of 3.22 more than 4. Patient is being seen by a bingo checker. Apparently patient is also being considered for dialysis. From Cardec standpoint patient doesn't seem to be in acute distress at this time. His EKG showed atrial fibrillation with controlled ventricular response with evidence of right bundle-branch block pattern. Review of Systems As per the chart Past Medical History Past Medical History: Atrial Fibrillation, Heart Failure, COPD, Diabetes Mellitus, GERD/Reflux, Hyperlipidemia, Hypertension, Pneumonia, Renal Disease, Sleep Apnea/CPAP/BIPAP, Thyroid Disorder Additional Past Medical History / Comment(s): IDDM type II, chronic kidney disease stage III, ALLA uses CPAP most nights, narcolepsy, diabetic neuropathy bilateral hands and feet, chronic back pain, spinal stenosis, DJD, falls, diverticular dx, L vocal cord irregularity/lesion noted and pt states he followed up and it had gone down, hypothyroidism.EDENTULOUS History of Any Multi-Drug Resistant Organisms: MRSA, Other MDRO Date of last positivie culture/infection: 02/03/15, 05/02/16 MDRO Source:: Right leg, mdro pseudo urine Past Surgical History: Adenoidectomy, Cholecystectomy, Orthopedic Surgery, Tonsillectomy Additional Past Surgical History / Comment(s): 04/28/15 nasophargoscopy larygoscopy, colonoscopy, lt knee arthroscopy Past Anesthesia/Blood Transfusion Reactions: No Reported Reaction, Family History of Problems w/ Anesthesia Additional Past Anesthesia/Blood Transfusion Reaction / Comment(s): states father had cardiac arrest 2x's. Pt received blood in 1983 with tonsillectomy.PT IS CLAUSTERPHOBIC. Past Psychological History: Depression Additional Psychological History / Comment(s): . Smoking Status: Former smoker Past Alcohol Use History: None Reported Additional Past Alcohol Use History / Comment(s): Pt states he started smoking at age 9 yrs and WAS up to 2 ppd ,THEN QUIT SMORT PERIOD OF TIME BUT ONLY FEW CIG PER DAY Past Drug Use History: None Reported - Past Family History Sister(s) Additional Family Medical History / Comment(s): LILLY'S Mother Family Medical History: Renal Disease Father Family Medical History: Cancer, Coronary Artery Disease (CAD), Diabetes Mellitus Medications and Allergies Home Medications Medication Instructions Recorded Confirmed Type Aspirin EC [Ecotrin Low Dose] 81 mg PO HS 10/11/15 10/06/16 History Ergocalciferol [Vitamin D2 50,000 unit PO MO 11/24/15 10/06/16 History (DRISDOL)] Omeprazole [PriLOSEC] 20 mg PO DAILY 11/24/15 10/06/16 History Levalbuterol Nebulized [Xopenex 1.25 mg INHALATION RT-TID 11/25/15 10/06/16 History Nebulized] Sacubitril/Valsartan [Entresto 24 1 tab PO BID 11/25/15 10/06/16 History mg-26 mg Tablet] Acetaminophen Tab [Tylenol] 325 mg PO Q6H PRN 05/02/16 10/06/16 History INSULIN LISPRO (humaLOG) [humaLOG 10 units SQ TID@0700,1100,1700 05/02/16 History (formulary)] Levothyroxine Sodium [Synthroid] 150 mcg PO DAILY 05/02/16 10/06/16 History Loperamide [Imodium] 2 mg PO QID PRN 05/02/16 10/06/16 History Menthol [Biofreeze] 1 applic TOPICAL BID PRN 05/02/16 10/06/16 History Metolazone [Zaroxolyn] 2.5 mg PO DAILY 05/02/16 10/06/16 History Nystatin 100,000 Unit/gm Powd 1 applic TOPICAL BID 05/02/16 10/06/16 History [Mycostatin Powder] Pravastatin Sodium [Pravachol] 40 mg PO HS 05/02/16 10/06/16 History SILVER sulfADIAZINE CREAM 1 applic TOPICAL HS 05/02/16 10/06/16 History [Silvadene Cream] Allopurinol [Zyloprim] 300 mg PO DAILY 07/08/16 10/06/16 History Edoxaban Tosylate [Savaysa] 30 mg PO HS 07/08/16 10/06/16 History Mylanta Susp 30 ml PO Q4H PRN 07/08/16 10/06/16 History Nitroglycerin Sl Tabs [Nitrostat] 0.4 mg SUBLINGUAL Q5M PRN 07/08/16 10/06/16 History PARoxetine HCL [Paxil] 40 mg PO DAILY@0700 07/08/16 10/06/16 History Penicillin V Potassium [Pen Vee K] 250 mg PO DAILY 07/08/16 10/06/16 History Sodium Chloride [[place]] 1 spray EA NOSTRIL Q8H PRN 07/08/16 10/06/16 History oxyCODONE HCL 15 mg PO Q6HR PRN 07/08/16 10/06/16 History Acetaminophen Tab [Tylenol] 650 mg PO Q4H PRN 10/06/16 10/06/16 History Colloidal Oatmeal [Eucerin Eczema 1 applic TOPICAL BID 10/06/16 10/06/16 History Relief] Darbepoetin Tez [Aranesp] 100 mcg IJ MO 10/06/16 10/06/16 History Doxepin [SINEquan] 10 mg PO HS 10/06/16 10/06/16 History Furosemide [Lasix] 80 mg PO BID 10/06/16 10/06/16 History Insulin Glargine [Lantus] 22 unit SQ HS@199910/06/16 10/06/16 History Methylphenidate HCl [Ritalin] 20 mg PO BID@0500,1500 10/06/16 10/06/16 History Metoprolol Tartrate [Lopressor] 25 mg PO BID 10/06/16 10/06/16 History Nystatin 100,000Unit/gm Cream 1 applic TOPICAL BID 10/06/16 10/06/16 History [Mycostatin Cream] glipiZIDE [Glucotrol] 10 mg PO DAILY 10/06/16 10/06/16 History Allergies Allergy/AdvReac Type Severity Reaction Status Date / Time No Known Allergies Allergy Verified 10/06/16 10:32 Physical Exam Vitals: Vital Signs Temp Pulse Pulse Resp BP Pulse Ox 10/07/16 15:44 114 H 17 10/07/16 15:00 97.5 F L 112 H 17 121/76 98 10/07/16 12:41 80 10/07/16 12:25 80 10/07/16 08:00 114 H 17 10/07/16 07:00 97.4 F L 114 H 17 116/76 95 10/06/16 23:55 18 10/06/16 22:57 97.6 F 100 18 108/64 95 10/06/16 20:09 80 10/06/16 19:59 80 Intake and Output 10/07/16 10/07/16 10/07/16 06:59 14:59 22:59 Intake Total 530 Output Total 600 1050 Balance 530 -600 -1050 Intake: Intake, IV Titration 410 Amount Ceftaroline Fosamil 400 250 mg In Sodium Chloride 0.9 % 250 ml @ 250 mls/hr IVPB Q12HR [facility] Rx#: [id number] Sodium Chloride 0.9% 1, 160 000 ml @ 20 mls/hr IV . Q24H [facility] Rx#:[id number] Oral 120 Output: Urine 600 1050 Other: Voiding Method Urinal Toilet Toilet Diaper Urinal Urinal Diaper Diaper # Voids 1 3 3 Weight 150 kg 150 kg Patient Weight 10/08/16 06:59 Weight 150 kg GENERAL EXAM: Patient is alert and oriented and doesn't appear to be in any acute distress HEENT: Normocephalic. Normal reaction of pupils, equal size, normal range of extraocular motion. No erythema or exudates in the throat. NECK: No masses, no nuchal rigidity. CHEST: No chest wall deformity. LUNGS: Equal air entry with no crackles or wheeze. HEART: Irregular heart rhythm ABDOMEN: No hepatosplenomegaly, normal bowel sounds, no guarding or rigidity. SKIN: No rashes CENTRAL NERVOUS SYSTEM: No focal deficits. EXTREMITIES: No cyanosis, clubbing or edema. Results 10/07/16 07:44 10/07/16 07:44 Cardiac Enzymes 10/07/16 Range/Units 07:44 AST 41 (17-59) U/L CBC 10/07/16 Range/Units 07:44 WBC 9.1 (3.8-10.6) k/uL RBC 3.46 L (4.30-5.90) m/uL Hgb 10.6 L (13.0-17.5) gm/dL Hct 31.3 L (39.0-53.0) % Plt Count 135 L (150-450) k/uL Comprehensive Metabolic Panel 10/07/16 Range/Units 07:44 Sodium 136 L (137-145) mmol/L Potassium 5.4 H (3.5-5.1) mmol/L Chloride 93 L (98-107) mmol/L Carbon Dioxide 25 (22-30) mmol/L BUN >120 H* (9-20) mg/dL Creatinine 4.14 H (0.66-1.25) mg/dL Glucose 137 H (74-99) mg/dL Calcium 9.2 (8.4-10.2) mg/dL AST 41 (17-59) U/L ALT 22 (21-72) U/L Alkaline Phosphatase 139 H (38-126) U/L Total Protein 8.3 H (6.3-8.2) g/dL Albumin 4.0 (3.5-5.0) g/dL Current Medications Generic Name Dose Route Start Last Admin Trade Name Freq PRN Reason Stop Dose Admin Acetaminophen 325 mg 10/06/16 17:44 Tylenol Tab PO Q6H PRN Mild Pain Al Hydroxide/Mg Hydroxide 30 ml 10/06/16 17:44 Maalox PO Q4H PRN Indigestion Albuterol Sulfate 2.5 mg 10/07/16 20:00 10/07/16 12:24 Ventolin Nebulized INHALATION 2.5 mg RT-QID [facility] Administration Allopurinol 200 mg 10/08/16 09:00 Zyloprim PO DAILY [facility] Alprazolam 0.5 mg 10/06/16 17:44 Xanax PO Q8H PRN Anxiety Aspirin 81 mg 10/06/16 21:00 10/06/16 20:28 Aspirin PO 81 mg HS [facility] Administration Calamine/Phenol 1 applic 10/06/16 17:44 Risamine Oint TOPICAL BID PRN Pain Doxepin HCl 10 mg 10/06/16 21:00 10/06/16 20:27 Sinequan PO 10 mg HS [facility] Administration Edoxaban 30 mg 10/06/16 21:00 10/06/16 20:28 Savaysa PO 30 mg HS [facility] Administration Ergocalciferol 50,000 unit 10/09/16 09:00 Vitamin D2 PO MO [facility] Fluconazole 100 mg 10/07/16 12:00 10/07/16 12:14 Diflucan PO 100 mg DAILY [facility] Administration Glipizide 10 mg 10/07/16 07:30 10/07/16 08:21 Glucotrol PO 10 mg [id number] [facility] Administration Sodium Chloride 1,000 mls @ 50 mls/hr 10/07/16 11:00 10/07/16 12:15 Saline 0.9% IV 50 mls/hr .Q20H [facility] Administration Daptomycin 500 mg/ Sodium 50 mls @ 100 mls/hr 10/07/16 17:00 10/07/16 17:19 Chloride IV 100 mls/hr Q48H [facility] Administration Insulin Glargine 22 unit 10/06/16 20:00 10/06/16 20:15 Lantus SQ 22 unit HS@2000 [facility] Administration Insulin Human Lispro 10 unit 10/07/16 07:00 10/07/16 17:22 Humalog SQ 10 unit TID@0700,1100,1700 [facility] Administration Levothyroxine Sodium 150 mcg 10/07/16 06:30 10/07/16 05:15 Synthroid PO 150 mcg DAILY@0630 [facility] Administration Loperamide HCl 2 mg 10/06/16 17:44 Imodium PO QID PRN Diarrhea Methylphenidate HCl 20 mg 10/07/16 05:00 10/07/16 16:16 Ritalin PO 20 mg BID@0500,1500 [facility] Administration Metoprolol Tartrate 25 mg 10/06/16 21:00 10/07/16 08:22 Lopressor PO 25 mg BID [facility] Administration Naloxone HCl 0.2 mg 10/06/16 14:13 Narcan IV Q2M PRN Opioid Reversal Nitroglycerin 0.4 mg 10/06/16 17:44 Nitrostat SUBLINGUAL Q5M PRN Chest Pain Nystatin 1 applic 10/06/16 21:00 10/07/16 08:22 Mycostatin Cream TOPICAL 1 applic BID [facility] Administration Oxycodone HCl 15 mg 10/06/16 17:44 Oxyir PO Q6HR PRN Severe Pain Pantoprazole Sodium 40 mg 10/08/16 09:00 Protonix PO DAILY [facility] Paroxetine HCl 40 mg 10/07/16 07:00 10/07/16 08:21 Paxil PO 40 mg DAILY@0700 [facility] Administration Pregabalin 75 mg 10/06/16 21:00 10/07/16 10:10 Lyrica PO 75 mg BID [facility] Administration Sacubitril/Valsartan 1 each 10/06/16 21:00 10/07/16 08:22 Entresto 24 Mg-26 Mg Tablet PO 1 each BID [facility] Administration Silver Sulfadiazine 1 applic 10/06/16 21:00 10/06/16 19:59 Silvadene Cream TOPICAL 1 applic HS [facility] Administration Sodium Chloride 1 spray 10/06/16 17:44 [place] INTRANASAL Q8H PRN dry nasal/nasal bleeding Intake and Output 10/07/16 10/07/16 10/07/16 06:59 14:59 22:59 Intake Total 530 Output Total 600 1050 Balance 530 -600 -1050 Intake: Intake, IV Titration 410 Amount Ceftaroline Fosamil 400 250 mg In Sodium Chloride 0.9 % 250 ml @ 250 mls/hr IVPB Q12HR [facility] Rx#: [id number] Sodium Chloride 0.9% 1, 160 000 ml @ 20 mls/hr IV . Q24H [facility] Rx#:[id number] Oral 120 Output: Urine 600 1050 Other: Voiding Method Urinal Toilet Toilet Diaper Urinal Urinal Diaper Diaper # Voids 1 3 3 Weight 150 kg 150 kg Patient Weight 10/08/16 06:59 Weight 150 kg 10/07/16 07:44 10/07/16 07:44 EKG Interpretations (text) 8 defibrillation with evidence of right bundle-branch block Assessment and Plan (1) Acute renal failure (ARF) Status: Acute (2) COPD (chronic obstructive pulmonary disease) Status: Acute (3) Cellulitis, leg Status: Acute (4) Chronic atrial fibrillation Status: Acute (5) Congestive heart failure Status: Acute (6) Diabetes mellitus Status: Acute Plan: Patient is being evaluated today bingo checker. Patient doesn't have any overt signs of congestive heart failure. His heart rate is well controlled with current management. We will continue current medical therapy. Diuretics as for nephrology. Prognosis is guarded
[2016-10-07 20:18] LABS: Glucose,Whole Blood 71 mg/dL (75-99)
[2016-10-07] MEDS: INSULIN GLARGINE 100 UNIT/ML 10 ML VIAL SQ SCH (20:54)
[2016-10-07] MEDS: EDOXABAN TOSYLATE 30 MG TABLET PO SCH (20:58)
[2016-10-07] MEDS: ASPIRIN 81 MG CHEW PO SCH (20:59)
[2016-10-07] MEDS: DOXEPIN 10 MG CAP PO SCH (21:44)
[2016-10-08] MEDS: LEVOTHYROXINE 75 MCG TAB PO SCH (05:23)
[2016-10-08] MEDS: METHYLPHENIDATE HCL 10 MG TAB PO SCH ×2 (05:24→15:47)
[2016-10-08 07:42] LABS: Glucose,Whole Blood 107 mg/dL (75-99)
[2016-10-08 07:55] LABS: Anisocytosis Slight; Basophils # (A) 0.1 k/uL (0-0.2); Basophils % (A) 1 %; CH 30.2; CHCM 32.3; Eosinophils # (A) 1.1 k/uL (0-0.7); Eosinophils % (A) 12 %; HCT 34.4 % (39.0-53.0); HGB 10.8 gm/dL (13.0-17.5); Hypochromasia Slight; Luc # (Auto) 0.28; Luc % (Auto) 3; Lymphocytes # (A) 1.5 k/uL (1.0-4.8); Lymphocytes % (A) 17 %; MCH 29.5 pg (25.0-35.0); MCHC 31.4 g/dL (31.0-37.0); MCV 94.2 fL (80.0-100.0); Mean Platelet Volume 7.4; Monocytes # (A) 0.5 k/uL (0-1.0); Monocytes % (A) 6 %; Neutrophils # (A) 5.4 k/uL (1.3-7.7); Neutrophils % (A) 62 %; RBC 3.65 m/uL (4.30-5.90); RDW 17.3 % (11.5-15.5); WBC 8.8 k/uL (3.8-10.6); WBC (Perox) 9.17
[2016-10-08] MEDS: SODIUM CHLORIDE 0.9% 1,000 ML IV SCH ×4 (08:25→21:51)
[2016-10-08] MEDS: METOPROLOL TARTRATE 25 MG TAB PO SCH ×2 (08:27→21:29)
[2016-10-08] MEDS: PANTOPRAZOLE 40 MG TABLET PO SCH (08:27)
[2016-10-08] MEDS: PARoxetine 20 MG TAB PO SCH (08:27)
[2016-10-08] MEDS: SACUBITRIL/VALSARTAN 24 MG-26 MG TABLET PO SCH ×2 (08:27→21:29)
[2016-10-08] MEDS: FLUCONAZOLE 100 MG TAB PO SCH (08:27)
[2016-10-08] MEDS: INSULIN LISPRO (humaLOG) 300 UNIT/3 ML VIAL SQ SCH ×3 (08:28→17:38)
[2016-10-08] MEDS: glipiZIDE 10 MG TAB PO SCH (08:29)
[2016-10-08] MEDS: ALLOPURINOL 100 MG TAB PO SCH (08:29)
[2016-10-08] MEDS: NYSTATIN 100,000UNIT/GM CREAM 30 GM TUBE TOPICAL SCH ×2 (08:29→21:29)
[2016-10-08] MEDS: ALBUTEROL NEBULIZED 2.5 MG/3 ML INHALATION SCH ×4 (08:35→19:35)
[2016-10-08] MEDS: PREGABALIN 75 MG CAP PO SCH ×2 (08:35→21:28)
[2016-10-08 08:37] LABS: Calcium 9.4 mg/dL (8.4-10.2); Potassium 3.9 mmol/L (3.5-5.1); Total Bilirubin 0.9 mg/dL (0.2-1.3); Total Protein 8.5 g/dL (6.3-8.2)
[2016-10-08] MEDS ORDERED: CEFTAROLINE FOSAMIL 300 MG in SODIUM CHLORIDE 0.9% 250 ML IVPB SCH (09:00)
--- NOTE | 2016-10-08 09:24 | PN ---
DATE OF SERVICE: 10/07/2016 This 60-year-old gentleman who was admitted with CHF acute exacerbation, also had scrotal cellulitis and bilateral leg cellulitis also. The patient being closely monitored at this time. The patient also seen by nephrology and infectious disease, pulmonology also. The patient also had significant restrictive lung disease and sleep disorder also. The patient started Teflaro per Dr. English also. PAST MEDICAL HISTORY: reviewed. REVIEW OF SYSTEMS: CARDIOVASCULAR: No angina. RESPIRATORY: As mentioned earlier. GI: As mentioned earlier. : No dysuria. Nervous system: No focal deficits. Current medications: 1. Tylenol 325 mg q6h p.r.n. 2. Maalox 30 mL q.4 p.r.n. 3. Ventolin 2.5 q.i.d. 4. Zyloprim 200 mg daily. 5. Xanax 0.5 q.8. 6. Aspirin 81 mg. 7. Calamine lotion. 8. Daptomycin 500 mg q.48 hours. 9. Sinequan which is doxepin 10 mg p.o. q.h.s. 10. Savaysa 30 mg q.h.s. 11. Vitamin D2 50,000 daily. 12. Diflucan 100 mg daily. 13. Glucotrol. 14. Lantus. 15. Synthroid. 16. Imodium. 17. Ritalin. 18. Lopressor. 19. Narcan. 20. Nitrostat. 21. Protonix. 22. Protonix. 23. Paxil. 24. Lyrica. 25. Entresto. PHYSICAL EXAMINATION: Patient is alert and oriented x2. Pulse is 112, blood pressure 110/73, respirations 17, temperature 97.4, pulse ox 90% on room air. HEENT: Conjunctivae normal. NECK: No JVD. CARDIOVASCULAR: S1, S2 muffled. RESPIRATORY: Breath sounds diminished at the bases. A few scattered rhonchi and crackles. ABDOMEN: Soft, obese, nontender. Legs: Minimal leg cellulitis. CENTRAL NERVOUS SYSTEM: No focal deficits. LABS: Hemoglobin 10.6, sodium 130, potassium 5.4. Other labs are noted. Cultures are pending at this time. ASSESSMENT: 1. Possible congestive heart failure, acute exacerbation, acute on chronic systolic dysfunction, ejection fraction 20 to 25% with acute hypoxic respiratory failure. 2. Acute scrotal cellulitis with bleeding from the left side of the scrotum. 3. Bilateral leg cellulitis. 4. Morbid obesity, body mass index of 56. 5. Gait dysfunction. 6. History of atrial fibrillation, paroxysmal. 7. History of congestive heart failure. 8. History of chronic obstructive pulmonary disease. 9. Diabetes type 2. 10. Gastroesophageal reflux disease. 11. Hypertension. 12. Hyperlipidemia. 13. History of pneumonia. 14. History of sleep apnea. 15. History of hypothyroidism. 16. History of diabetes mellitus type 2. 17. History of chronic kidney disease. 18. History of sleep apnea, uses CPAP. 19. History of degenerative joint disease. 20. Hypothyroidism. 21. History of Methicillin-resistant Staph aureus. 22. History of cholecystectomy. 23. History of depression, not otherwise specified. 24. Remote history of nicotine dependence. 25. FULL CODE. RECOMMENDATIONS AND DISCUSSION: Recommend to continue current medications, continue with monitoring, symptomatic treatment. Otherwise, at this time, I recommend continuing symptomatic treatment. Continue with antibiotics. Repeat labs. Monitor fluid and electrolytes balance closely, PT, OT evaluation and follow closely with multiple consultants. Guarded prognosis. Further recommendations to follow.
--- NOTE | 2016-10-08 09:48 | P.PN ---
Subjective Patient is seen in follow-up for acute kidney injury on chronic kidney disease. Renal function is not much improved with creatinine at 4.19 today. His BUN level is down to 139. His oral intake is good. He is nonoliguric with urine output of over 2 L in the last 24 hours. Denies chest pain or shortness of breath. Currently being treated for lower extremity wounds. Patient has chronic kidney disease stage IV secondary to nephrosclerosis with baseline creatinine in the range of 3.2-3.4. Vital signs are stable. General: The patient appeared well nourished and normally developed. HEENT: Head exam is unremarkable. Neck is without jugular venous distension. LUNGS: Lungs are clear to auscultation and percussion. Breath sounds decreased. HEART: Rate and Rhythm are regular. First and second heart sounds normal. No murmurs, rubs or gallops. ABDOMEN: Abdominal exam reveals normal bowel sounds. Non-tender and non- distended. No evidence of peritonitis. EXTREMITITES: No clubbing, cyanosis, or edema. No obvious drainage from the wounds which are wrapped. Objective - Vital Signs Vital signs: Vital Signs Temp 97.4 F L 10/08/16 07:00 Pulse 88 10/08/16 08:48 Resp 18 10/08/16 07:00 BP 110/49 10/08/16 07:00 Pulse Ox 99 10/08/16 07:00 Intake & Output 10/07/16 10/08/16 10/08/16 18:59 06:59 18:59 Intake Total 520 Output Total 1650 620 Balance -1650 -100 Weight 149.36 kg Intake: Intake, IV Titration 400 Amount Sodium Chloride 0.9% 1, 400 000 ml @ 50 mls/hr IV . Q20H [facility] Rx#:[id number] Oral 120 Output: Urine 1650 620 Other: Voiding Method Toilet Toilet Urinal Urinal Diaper Diaper # Voids 3 - Labs CBC & Chem 7: 10/08/16 07:20 10/08/16 07:20 Labs: Abnormal Lab Results - Last 24 Hours (Table) 10/07/16 10/07/16 10/07/16 Range/Units 07:44 07:44 11:40 RBC 3.46 L (4.30-5.90) m/uL Hgb 10.6 L (13.0-17.5) gm/dL Hct 31.3 L (39.0-53.0) % RDW 17.5 H (11.5-15.5) % Plt Count 135 L (150-450) k/uL Eosinophils # 1.1 H (0-0.7) k/uL Sodium 136 L (137-145) mmol/L Potassium 5.4 H (3.5-5.1) mmol/L Chloride 93 L (98-107) mmol/L Carbon Dioxide (22-30) mmol/L BUN >120 H* (9-20) mg/dL Creatinine 4.14 H (0.66-1.25) mg/dL Glucose 137 H (74-99) mg/dL POC Glucose (mg/dL) 285 H (75-99) mg/dL Alkaline Phosphatase 139 H (38-126) U/L Total Protein 8.3 H (6.3-8.2) g/dL 10/07/16 10/08/16 10/08/16 Range/Units 20:17 07:20 07:20 RBC 3.65 L (4.30-5.90) m/uL Hgb 10.8 L (13.0-17.5) gm/dL Hct 34.4 L (39.0-53.0) % RDW 17.3 H (11.5-15.5) % Plt Count (150-450) k/uL Eosinophils # 1.1 H (0-0.7) k/uL Sodium (137-145) mmol/L Potassium (3.5-5.1) mmol/L Chloride 93 L (98-107) mmol/L Carbon Dioxide 33 H (22-30) mmol/L BUN 139 H* (9-20) mg/dL Creatinine 4.19 H (0.66-1.25) mg/dL Glucose 107 H (74-99) mg/dL POC Glucose (mg/dL) 71 L (75-99) mg/dL Alkaline Phosphatase (38-126) U/L Total Protein 8.5 H (6.3-8.2) g/dL 10/08/16 Range/Units 07:33 RBC (4.30-5.90) m/uL Hgb (13.0-17.5) gm/dL Hct (39.0-53.0) % RDW (11.5-15.5) % Plt Count (150-450) k/uL Eosinophils # (0-0.7) k/uL Sodium (137-145) mmol/L Potassium (3.5-5.1) mmol/L Chloride (98-107) mmol/L Carbon Dioxide (22-30) mmol/L BUN (9-20) mg/dL Creatinine (0.66-1.25) mg/dL Glucose (74-99) mg/dL POC Glucose (mg/dL) 107 H (75-99) mg/dL Alkaline Phosphatase (38-126) U/L Total Protein (6.3-8.2) g/dL Assessment and Plan Plan: Assessment: #1. Nonoliguric acute kidney injury mostly prerenal in nature secondary to diuretics. Creatinine 4.3 on admission and 4.19 today. Urinalysis is completely benign without any proteinuria, hematuria, or white cells. #2. Chronic kidney disease stage IV secondary to nephrosclerosis and cardiorenal syndrome with baseline creatinine near 3.2-3.4. #3. Systolic CHF with ejection fraction of 20-25%. Compensated. #4. Bilateral lower extremity wounds. #5. Insulin-dependent diabetes mellitus. Plan: Increase normal saline to be run at 75 mL an hour. Hold diuretics for now. Antibiotics per infectious disease recommendations. Strict I's and O's. Repeat electrolytes in the morning. I discussed with the patient that if no improvement in his renal function in the next 24 hours, will need to start renal replacement therapy. He understands and is in agreement.
[2016-10-08 11:27] LABS: Glucose,Whole Blood 243 mg/dL (75-99)
--- NOTE | 2016-10-08 16:38 | PN ---
DATE OF SERVICE: 10/08/2016 Mr. Bill Mcnair is a morbidly obese 60-year-old male who is seen, evaluated and examined. The patient is being monitored and observed for acute renal failure. BiPAP, has not been initiated. I discussed with the nursing staff so that patient can be initiated on BiPAP. He is somnolent, but arousable in no obvious distress however, is present. His last set of vitals include blood pressure 110/60, respiratory rate 18, pulse 85, temperature 97.4. He is 99% on 2 L oxygen. HEENT EXAMINATION: Otherwise unremarkable, narrow pharyngeal opening is present. Neck veins are prominent. No bruits present. LUNGS: Bilateral poor entry at the bases without significant rales, rhonchi or rub. HEART: Regular rate and rhythm. ABDOMEN: Soft. EXTREMITIES: +3 edema with chronic skin changes covered with dressing. Medications reviewed. Laboratory data reviewed. NEUROLOGICAL EXAMINATION: Otherwise, awake and alert. Moving all 4 extremities. LABORATORY DATA: Reviewed. White cell count 8,200, hemoglobin 10, hematocrit 34, platelet count 165,000. BUN 139 and creatinine 4.19, which continue to go up though. IMPRESSION: 1. Obesity hypoventilation with severe degree of obstructive sleep apnea. Patient to be initiated on BiPAP 10/5, with oxygen to keep saturation over 88% each night and p.r.n. during the day. 2. Severe chronic obstructive pulmonary disease emphysema, I would recommend to maintain on breathing treatments. Avoid IV steroids at this point in time. 3. Acute renal failure with progressive worsening. The patient may undergo hemodialysis, however defer it to expertise of renal services. 4. Diabetes. 5. Hypertension, hypertensive cardiovascular disease. 6. Cellulitis of the lower extremity. 7. Hypothyroidism. PLAN: As above. Continue supportive care. Increase activity as tolerated. Patient to go on BIPAP as planned.
[2016-10-08 17:18] LABS: Glucose,Whole Blood 105 mg/dL (75-99)
[2016-10-08 21:09] LABS: Glucose,Whole Blood 135 mg/dL (75-99)
[2016-10-08] MEDS: INSULIN GLARGINE 100 UNIT/ML 10 ML VIAL SQ SCH (21:09)
[2016-10-08] MEDS: EDOXABAN TOSYLATE 30 MG TABLET PO SCH (21:29)
[2016-10-08] MEDS: DOXEPIN 10 MG CAP PO SCH (21:29)
[2016-10-08] MEDS: ASPIRIN 81 MG CHEW PO SCH (21:29)
[2016-10-09] MEDS: METHYLPHENIDATE HCL 10 MG TAB PO SCH ×2 (06:11→18:40)
[2016-10-09] MEDS: LEVOTHYROXINE 75 MCG TAB PO SCH (06:11)
[2016-10-09 07:24] LABS: Glucose,Whole Blood 161 mg/dL (75-99)
[2016-10-09] MEDS: ALBUTEROL NEBULIZED 2.5 MG/3 ML INHALATION SCH ×4 (07:30→19:49)
[2016-10-09] MEDS: INSULIN LISPRO (humaLOG) 300 UNIT/3 ML VIAL SQ SCH ×3 (07:41→17:36)
[2016-10-09] MEDS: PARoxetine 20 MG TAB PO SCH (07:42)
[2016-10-09] MEDS: glipiZIDE 10 MG TAB PO SCH (07:43)
[2016-10-09 08:11] LABS: Anisocytosis Slight; Basophils # (A) 0.1 k/uL (0-0.2); Basophils % (A) 1 %; CH 30.2; CHCM 32.2; Eosinophils # (A) 0.9 k/uL (0-0.7); Eosinophils % (A) 11 %; HCT 31.6 % (39.0-53.0); HDW 3.18; HGB 9.9 gm/dL (13.0-17.5); Hypochromasia Slight; Luc # (Auto) 0.26; Luc % (Auto) 3; Lymphocytes # (A) 1.1 k/uL (1.0-4.8); Lymphocytes % (A) 14 %; MCH 29.4 pg (25.0-35.0); MCHC 31.2 g/dL (31.0-37.0); MCV 94.2 fL (80.0-100.0); Mean Platelet Volume 7.7; Monocytes # (A) 0.4 k/uL (0-1.0); Monocytes % (A) 6 %; Neutrophils # (A) 5.1 k/uL (1.3-7.7); Neutrophils % (A) 65 %; RBC 3.36 m/uL (4.30-5.90); RDW 17.4 % (11.5-15.5); WBC 7.8 k/uL (3.8-10.6); WBC (Perox) 8.41
[2016-10-09 08:15] LABS: Total Bilirubin 0.8 mg/dL (0.2-1.3)
--- NOTE | 2016-10-09 08:24 | PN ---
DATE OF SERVICE: 10/08/2016 This 60-year-old gentleman who was admitted with congestive heart failure acute exacerbation, also had multiple other medical issues including cellulitis and as well as morbid obesity. Renal functions are not improving. Dr. Varghese is following the patient closely. The patient is tentatively scheduled to have dialysis catheter inserted at this time. Past medical history reviewed. REVIEW OF SYSTEMS: CARDIOVASCULAR: No angina. RESPIRATORY: As mentioned earlier. GI: As mentioned earlier. GENITOURINARY: No dysuria. Current medications are reviewed and include: 1. Tylenol 320 q.6 p.r.n. 3. Xanax 0.5 q.8 p.r.n. 4. Aspirin 81 mg. 5. Daptomycin 500 mg q.48 hours. 6. Doxepin 10 mg q.6. 7. Savaysa 30 mg. 8. Vitamin D2. 9. Diflucan 100 mg daily. 10. Glucotrol 10 mg daily. 11. Lantus. 12. Humalog. 13. Synthroid. 14. Imodium. 16. Lopressor. 17. Narcan. 18. Nitrostat. 19. Mycostatin. 20. OxyIR. 21. Protonix. 22. Paxil. 23. Lyrica. 24. Entresto. 25. Silvadene PHYSICAL EXAMINATION: The patient is alert and oriented x2. Pulse 93, blood pressure 124/74, respiratory rate 20, temperature normal, pulse ox 98% on 2 L. HEENT: Conjunctivae normal. NECK: No jugular venous distention. CARDIOVASCULAR: S1, S2 muffled. RESPIRATORY: Breath sounds diminished in the bases. A few scattered rhonchi. ABDOMEN: Soft, obese. LEGS: Bilateral leg edema. Nervous system: Diffusely weak. LABS: WBC 8.8, hemoglobin 10.8, BUN is 139, creatinine 4.1. Accu-Cheks noted. ASSESSMENT: 1. Congestive heart failure, acute exacerbation, with acute on chronic systolic dysfunction, ejection fraction 25% with acute hypoxic respiratory failure. 2. Acute scrotal cellulitis with bilateral leg cellulitis with non pressure ulcer due to diabetes mellitus. 3. Chronic obstructive pulmonary disease, acute exacerbation. 4. Morbid obesity, body mass index of 56. 5. Gait dysfunction. 6. History of atrial fibrillation, paroxysmal. 7. History of congestive heart failure. 8. History of chronic obstructive pulmonary disease. 9. Diabetes type 2 disease. 10. Gastroesophageal reflux disease. 11. Hypertension, essential. 12. Hyperlipidemia. 13. History of pneumonia. 14. History of sleep apnea. 15. History of hypothyroidism. 16. History of diabetes type 2. 17. History of chronic kidney disease. 18. History of sleep apnea CPAP. 19. History of degenerative joint disease. 20. History of hypothyroidism. 21. History of Methicillin-resistant Staph aureus. 22. History of cholecystectomy. 23. History of depression, not otherwise specified. 24. Remote history of nicotine dependence. 25. FULL CODE. RECOMMENDATIONS AND DISCUSSION: Recommend to continue current medications, continue with monitoring, symptomatic treatment. Otherwise, at this time, I would recommend to continue the current medications and Dr. Varghese from nephrology has evaluated the patient and recommended increase normal saline and hold diuretics for now and possible dialysis catheter insertion, pulmonary also following the patient closely. Will check and NT-ProBNP also. Once again, prognosis is guarded because of multiple complex medical issues. RADHA
[2016-10-09] MEDS: ERGOCALCIFEROL 50,000 UNIT CAP PO SCH (08:41)
[2016-10-09] MEDS: ALLOPURINOL 100 MG TAB PO SCH (08:41)
[2016-10-09] MEDS: METOPROLOL TARTRATE 25 MG TAB PO SCH ×2 (08:42→23:30)
[2016-10-09] MEDS: PANTOPRAZOLE 40 MG TABLET PO SCH (08:42)
[2016-10-09] MEDS: FLUCONAZOLE 100 MG TAB PO SCH (08:42)
[2016-10-09] MEDS: SACUBITRIL/VALSARTAN 24 MG-26 MG TABLET PO SCH ×2 (08:43→23:30)
[2016-10-09] MEDS: NYSTATIN 100,000UNIT/GM CREAM 30 GM TUBE TOPICAL SCH ×2 (08:44→23:40)
[2016-10-09] MEDS: PREGABALIN 75 MG CAP PO SCH ×2 (08:47→23:46)
--- NOTE | 2016-10-09 10:49 | PN ---
DATE OF SERVICE: 10/08/2016 Reason for followup is bilateral lower extremity wound and cellulitis. INTERVAL HISTORY: The patient is afebrile. He is currently breathing comfortably. Denies any significant chest pain or shortness of breath. Occasional cough. No abdominal pain and no pain in his lower extremities. On examination, blood pressure 97/65 with a pulse 103, temperature 97.7. He is 98% on 3 L nasal cannula. General description is a middle-age male up in the chair, in no distress. RESPIRATORY SYSTEM: Unlabored breathing. Clear to auscultation anteriorly. HEART: S1, S2. Regular rate and rhythm. ABDOMEN: Soft and no tenderness. Bilateral leg wounds are currently dressed up. No obvious drainage on the dressing. LABS: Hemoglobin 10.8, white count 8.8. BUN of 139, creatinine 4.19. Wound cultures are currently pending. DIAGNOSTIC IMPRESSION AND PLAN: Patient with bilateral lower extremity wound with secondary cellulitis. Patient with a previous history of methicillin-resistant Staphylococcus aureus infection currently with renal insufficiency and high risk for vancomycin toxicity. The patient being treated with Daptomycin along with Aquacel silver dressing and Aftab wrap will be continued while awaiting for the cultures to finalize. Continue supportive care. MTDD
--- NOTE | 2016-10-09 10:57 | CDI ---
In responding to this query, please exercise your independent professional judgment. The [facility] Coding Staff and Clinical Documentation Specialists appreciate your assistance in clarifying documentation, maintaining compliance with coding guidelines, accurately documenting patients condition and capturing severity of illness. The fact that a question is asked does not imply that any particular answer is desired or expected. Communication forms are a method of clarifying documentation and are not made part of the Legal Health Record. Thank you in advance for your clarification. Last Revision, August 2015 Cristiano May [address] [facility] [place] [address] Documentation Clarification Form Date: 10/09/2016 10:48:00 AM From: Rosalind Gomez RN, CCDS Admit Date: 10/06/2016 2:13:00 PM Patient Name: Bill Mcnair Visit Number: [id number] Dr. Zackery Granado Bilateral lower extremity "wounds" is documented in the H&P and progress notes and requires further specificity." Patient history/risk factors: Cellulitis, DM, Super MO, HTN, CKD, Nicotine Dependence Clinical Indicators: 10/06 ID Consult: "He was noticed to have wounds on both legs, more marked on the left leg; hence, ID was consulted for further recommendation regarding the same. ALLERGIES: BILATERAL LEGS: Especially left leg did have 2 wounds with no significant slough tissue, minimally surrounding erythema. LABS: He did have cultures obtained from the leg wounds that are gram-positive cocci in clusters. Wound assessment: Nursing documentation: "bilateral lower extremity cellulitis with wounds to bilateral shins" Treatment: Medication: Daptomycin 500 mg IVPB Q 48 hrs, Savaysa 30 mg PO Q HS, Mycostatin cream BID, Silvadene cream Q HS Consults: ID In your professional opinion, can the etiology and severity of the wound be further specified as one of the following? Etiology: Non-pressure chronic ulcer due to diabetes Non-pressure chronic ulcer due to arterial insufficiency Non-pressure chronic ulcer due to venous insufficiency Non-pressure chronic ulcer due to trauma Other, Please specify Unable to determine Severity: Limited to breakdown of skin With fat layer exposed With necrosis of muscle With necrosis of bone Other, Please specify Unable to determine Please document in your progress notes and discharge summary in order to capture severity of illness and risk of mortality. Include clinical findings that support your diagnosis. FYI: Press F11 to launch patient chart Place X here if this finding has no clinical significance, is not applicable or if you are not able to provide any additional documentation. MTDD
--- NOTE | 2016-10-09 11:32 | P.GSCN ---
History of Present Illness History of present illness: 60-year-old gentleman history of acute chronic renal failure patient has been admitted with high BUN/creatinine I was consulted for placement of the dialysis catheter Positive for history of congestive heart failure diabetes which is controlled with medication patient also has a chronic both lower extremity On examination neck is supple no bruit appreciated Chest has some crackles bilateral Abdomen soft nontender Vascular examination femorals are palpable chronic wound both lower extremity Plan is placement of the dialysis catheter risk and complication discussed infection bleeding we will arrange for catheter follow with you thank you Past Medical History Past Medical History: Atrial Fibrillation, Heart Failure, COPD, Diabetes Mellitus, GERD/Reflux, Hyperlipidemia, Hypertension, Pneumonia, Renal Disease, Sleep Apnea/CPAP/BIPAP, Thyroid Disorder Additional Past Medical History / Comment(s): IDDM type II, chronic kidney disease stage III, ALLA uses CPAP most nights, narcolepsy, diabetic neuropathy bilateral hands and feet, chronic back pain, spinal stenosis, DJD, falls, diverticular dx, L vocal cord irregularity/lesion noted and pt states he followed up and it had gone down, hypothyroidism.EDENTULOUS History of Any Multi-Drug Resistant Organisms: MRSA, Other MDRO Year Discovered:: 02/03/15, 05/02/16 MDRO Source:: Right leg, mdro pseudo urine Past Surgical History: Adenoidectomy, Cholecystectomy, Orthopedic Surgery, Tonsillectomy Additional Past Surgical History / Comment(s): 04/28/15 nasophargoscopy larygoscopy, colonoscopy, lt knee arthroscopy Past Anesthesia/Blood Transfusion Reactions: No Reported Reaction, Family History of Problems w/ Anesthesia Additional Past Anesthesia/Blood Transfusion Reaction / Comm: states father had cardiac arrest 2x's. Pt received blood in 1983 with tonsillectomy.PT IS CLAUSTERPHOBIC. Past Psychological History: Depression Additional Psychological History / Comment(s): . Smoking Status: Former smoker Past Alcohol Use History: None Reported Additional Past Alcohol Use History / Comment(s): Pt states he started smoking at age 9 yrs and WAS up to 2 ppd ,THEN QUIT SMORT PERIOD OF TIME BUT ONLY FEW CIG PER DAY Past Drug Use History: None Reported - Past Family History Sister(s) Additional Family Medical History / Comment(s): LILLY'S Mother Family Medical History: Renal Disease Father Family Medical History: Cancer, Coronary Artery Disease (CAD), Diabetes Mellitus Medications and Allergies Home Medications Medication Instructions Recorded Confirmed Type Aspirin EC [Ecotrin Low Dose] 81 mg PO HS 10/11/15 10/06/16 History Ergocalciferol [Vitamin D2 50,000 unit PO MO 11/24/15 10/06/16 History (DRISDOL)] Omeprazole [PriLOSEC] 20 mg PO DAILY 11/24/15 10/06/16 History Levalbuterol Nebulized [Xopenex 1.25 mg INHALATION RT-TID 11/25/15 10/06/16 History Nebulized] Sacubitril/Valsartan [Entresto 24 1 tab PO BID 11/25/15 10/06/16 History mg-26 mg Tablet] Acetaminophen Tab [Tylenol] 325 mg PO Q6H PRN 05/02/16 10/06/16 History INSULIN LISPRO (humaLOG) [humaLOG 10 units SQ TID@0700,1100,1700 05/02/16 History (formulary)] Levothyroxine Sodium [Synthroid] 150 mcg PO DAILY 05/02/16 10/06/16 History Loperamide [Imodium] 2 mg PO QID PRN 05/02/16 10/06/16 History Menthol [Biofreeze] 1 applic TOPICAL BID PRN 05/02/16 10/06/16 History Metolazone [Zaroxolyn] 2.5 mg PO DAILY 05/02/16 10/06/16 History Nystatin 100,000 Unit/gm Powd 1 applic TOPICAL BID 05/02/16 10/06/16 History [Mycostatin Powder] Pravastatin Sodium [Pravachol] 40 mg PO HS 05/02/16 10/06/16 History SILVER sulfADIAZINE CREAM 1 applic TOPICAL HS 05/02/16 10/06/16 History [Silvadene Cream] Allopurinol [Zyloprim] 300 mg PO DAILY 07/08/16 10/06/16 History Edoxaban Tosylate [Savaysa] 30 mg PO HS 07/08/16 10/06/16 History Mylanta Susp 30 ml PO Q4H PRN 07/08/16 10/06/16 History Nitroglycerin Sl Tabs [Nitrostat] 0.4 mg SUBLINGUAL Q5M PRN 07/08/16 10/06/16 History PARoxetine HCL [Paxil] 40 mg PO DAILY@0700 07/08/16 10/06/16 History Penicillin V Potassium [Pen Vee K] 250 mg PO DAILY 07/08/16 10/06/16 History Sodium Chloride [[place]] 1 spray EA NOSTRIL Q8H PRN 07/08/16 10/06/16 History oxyCODONE HCL 15 mg PO Q6HR PRN 07/08/16 10/06/16 History Acetaminophen Tab [Tylenol] 650 mg PO Q4H PRN 10/06/16 10/06/16 History Colloidal Oatmeal [Eucerin Eczema 1 applic TOPICAL BID 10/06/16 10/06/16 History Relief] Darbepoetin Tez [Aranesp] 100 mcg IJ MO 10/06/16 10/06/16 History Doxepin [SINEquan] 10 mg PO HS 10/06/16 10/06/16 History Furosemide [Lasix] 80 mg PO BID 10/06/16 10/06/16 History Insulin Glargine [Lantus] 22 unit SQ HS@199910/06/16 10/06/16 History Methylphenidate HCl [Ritalin] 20 mg PO BID@0500,1500 10/06/16 10/06/16 History Metoprolol Tartrate [Lopressor] 25 mg PO BID 10/06/16 10/06/16 History Nystatin 100,000Unit/gm Cream 1 applic TOPICAL BID 10/06/16 10/06/16 History [Mycostatin Cream] glipiZIDE [Glucotrol] 10 mg PO DAILY 10/06/16 10/06/16 History Allergies Allergy/AdvReac Type Severity Reaction Status Date / Time No Known Allergies Allergy Verified 10/06/16 10:32 Surgical - Exam Vital Signs Temp Pulse Resp BP Pulse Ox 97 F L 96 18 110/61 98 10/06/16 10:25 10/06/16 10:25 10/06/16 10:25 10/06/16 10:25 10/06/16 10:25 Results - Labs 10/09/16 07:36 10/09/16 07:36 Abnormal Lab Results - Last 24 Hours (Table) 10/08/16 10/08/16 10/09/16 Range/Units 17:11 20:49 07:23 RBC (4.30-5.90) m/uL Hgb (13.0-17.5) gm/dL Hct (39.0-53.0) % RDW (11.5-15.5) % Eosinophils # (0-0.7) k/uL Chloride (98-107) mmol/L BUN (9-20) mg/dL Creatinine (0.66-1.25) mg/dL Glucose (74-99) mg/dL POC Glucose (mg/dL) 105 H 135 H 161 H (75-99) mg/dL 10/09/16 10/09/16 Range/Units 07:36 07:36 RBC 3.36 L (4.30-5.90) m/uL Hgb 9.9 L (13.0-17.5) gm/dL Hct 31.6 L (39.0-53.0) % RDW 17.4 H (11.5-15.5) % Eosinophils # 0.9 H (0-0.7) k/uL Chloride 97 L (98-107) mmol/L BUN 141 H* (9-20) mg/dL Creatinine 4.31 H (0.66-1.25) mg/dL Glucose 151 H (74-99) mg/dL POC Glucose (mg/dL) (75-99) mg/dL Diabetes panel 10/09/16 Range/Units 07:36 Sodium 143 (137-145) mmol/L Potassium 4.0 (3.5-5.1) mmol/L Chloride 97 L (98-107) mmol/L Carbon Dioxide 28 (22-30) mmol/L BUN 141 H* (9-20) mg/dL Creatinine 4.31 H (0.66-1.25) mg/dL Glucose 151 H (74-99) mg/dL Calcium 9.0 (8.4-10.2) mg/dL AST 30 (17-59) U/L ALT 21 (21-72) U/L Alkaline Phosphatase 113 (38-126) U/L Total Protein 8.0 (6.3-8.2) g/dL Albumin 3.8 (3.5-5.0) g/dL Calcium panel 10/09/16 Range/Units 07:36 Calcium 9.0 (8.4-10.2) mg/dL Albumin 3.8 (3.5-5.0) g/dL Pituitary panel 10/09/16 Range/Units 07:36 Sodium 143 (137-145) mmol/L Potassium 4.0 (3.5-5.1) mmol/L Chloride 97 L (98-107) mmol/L Carbon Dioxide 28 (22-30) mmol/L BUN 141 H* (9-20) mg/dL Creatinine 4.31 H (0.66-1.25) mg/dL Glucose 151 H (74-99) mg/dL Calcium 9.0 (8.4-10.2) mg/dL Adrenal panel 10/09/16 Range/Units 07:36 Sodium 143 (137-145) mmol/L Potassium 4.0 (3.5-5.1) mmol/L Chloride 97 L (98-107) mmol/L Carbon Dioxide 28 (22-30) mmol/L BUN 141 H* (9-20) mg/dL Creatinine 4.31 H (0.66-1.25) mg/dL Glucose 151 H (74-99) mg/dL Calcium 9.0 (8.4-10.2) mg/dL Total Bilirubin 0.8 (0.2-1.3) mg/dL AST 30 (17-59) U/L ALT 21 (21-72) U/L Alkaline Phosphatase 113 (38-126) U/L Total Protein 8.0 (6.3-8.2) g/dL Albumin 3.8 (3.5-5.0) g/dL
--- NOTE | 2016-10-09 11:42 | P.PN ---
Subjective This is a 60-year-old morbidly obese male who is being evaluated and examined today on the fifth floor. This patient has a history of pulmonary hypertension , cor pulmonale and chronic cellulitis of his lower extremities. Patient has a history of congestive heart failure as well. Patient is well-known to our services and has a history of obstructive sleep apnea. He does have a CPAP machine at home but he is on and off with his compliance with his machine. Patient was brought into the emergency room with a seizure associated by perianal bleeding likely from his scrotal bleeding versus a GI bleed. Patient has chronic swelling of his lower extremities and also has sores to his lower extremities. Patient's overall is a poor historian. Patient has been using his nebulizer machine and supplemental oxygen at home however his BiPAP is not being used consistently. Upon examination the patient is resting up in his chair on 3 L of supplemental oxygen. Patient states that at home he uses 2 L. Patient does complain of a cough that is nonproductive. Objective - Vital Signs Vital signs: Vital Signs Temp 97.6 F 10/09/16 07:00 Pulse 84 10/09/16 11:17 Resp 17 10/09/16 07:00 BP 117/70 10/09/16 07:00 Pulse Ox 96 10/09/16 07:33 Intake & Output 10/08/16 10/09/16 10/09/16 18:59 06:59 18:59 Intake Total 900 Output Total 620 1300 Balance -620 -400 Weight 149.36 kg 149 kg Intake: Intake, IV Titration 600 Amount Sodium Chloride 0.9% 1, 600 000 ml @ 75 mls/hr IV . [id number] [facility] Rx#:[id number] Oral 300 Output: Urine 620 1300 Other: Voiding Method Toilet Toilet Toilet Urinal Urinal Urinal Diaper Diaper Diaper # Voids 1 1 - Exam GENERAL EXAM: Alert, active, comfortable in no apparent distress. HEAD: Normocephalic. EYES: Normal reaction of pupils, equal size. NOSE: Clear with pink turbinates. THROAT: No erythema or exudates. Now pharyngeal opening NECK: No masses, no JVD. Neck veins prominent CHEST: No chest wall deformity. LUNGS: Equal air entry with no , wheeze, rhonchi or dullness. Few crackles at the bases. CVS: S1 and S2 normal with no audible mumurs, regular rhythm. ABDOMEN: No hepatosplenomegaly, normal bowel sounds, no guarding or rigidity. EXTREMITIES: +3 edema noted, pedal pulses palpable. Bilateral lower leg dressings in place. SKIN: No rashes CENTRAL NERVOUS SYSTEM: No focal deficits, tone is normal in all 4 extremities. - Labs CBC & Chem 7: 10/09/16 07:36 10/09/16 07:36 Labs: Abnormal Lab Results - Last 24 Hours (Table) 10/08/16 10/08/16 10/09/16 Range/Units 17:11 20:49 07:23 RBC (4.30-5.90) m/uL Hgb (13.0-17.5) gm/dL Hct (39.0-53.0) % RDW (11.5-15.5) % Eosinophils # (0-0.7) k/uL Chloride (98-107) mmol/L BUN (9-20) mg/dL Creatinine (0.66-1.25) mg/dL Glucose (74-99) mg/dL POC Glucose (mg/dL) 105 H 135 H 161 H (75-99) mg/dL 10/09/16 10/09/16 Range/Units 07:36 07:36 RBC 3.36 L (4.30-5.90) m/uL Hgb 9.9 L (13.0-17.5) gm/dL Hct 31.6 L (39.0-53.0) % RDW 17.4 H (11.5-15.5) % Eosinophils # 0.9 H (0-0.7) k/uL Chloride 97 L (98-107) mmol/L BUN 141 H* (9-20) mg/dL Creatinine 4.31 H (0.66-1.25) mg/dL Glucose 151 H (74-99) mg/dL POC Glucose (mg/dL) (75-99) mg/dL Assessment and Plan Plan: Assessment Sleep disorder breathing, sleep apnea, severe chronic obstructive sleep apnea Severe chronic obstructive pulmonary disease Acute renal failure Cardiomyopathy with acute on chronic systolic and diastolic heart failure Severe pulmonary hypertension related to multifactorial processes Obesity hypoventilation syndrome Diabetes mellitus Plan Medications have been reviewed and will be continued as ordered. We will continue with supplemental oxygen, pulmonary hygiene and supportive care. Continue with the patient's nebulizer treatments. Continue to encourage patient to use his BiPAP at night and when necessary. We will continue to monitor labs/results and adjust treatment as necessary. I performed an examination of the patient and discussed their management with the nurse practitioner. I have reviewed the nurse practitioner's note and agree with the documented findings and plan of care.
--- NOTE | 2016-10-09 11:54 | P.PN ---
Subjective Patient is seen in follow-up for acute kidney injury on chronic kidney disease. Renal function has not improved with creatinine at 4.3 today. His BUN level has increased to 141 despite being on IV fluids. His oral intake is good. He is nonoliguric with urine output near 2 L in the last 24 hours. Denies chest pain or shortness of breath. Currently being treated for lower extremity wounds. Patient has chronic kidney disease stage IV secondary to nephrosclerosis with baseline creatinine in the range of 3.2-3.4. He appears to have progressed to chronic kidney disease stage V. Vital signs are stable. General: The patient appeared well nourished and normally developed. HEENT: Head exam is unremarkable. Neck is without jugular venous distension. LUNGS: Lungs are clear to auscultation and percussion. Breath sounds decreased. HEART: Rate and Rhythm are regular. First and second heart sounds normal. No murmurs, rubs or gallops. ABDOMEN: Abdominal exam reveals normal bowel sounds. Non-tender and non- distended. No evidence of peritonitis. EXTREMITITES: No clubbing, cyanosis, or edema. No obvious drainage from the wounds which are wrapped. Objective - Vital Signs Vital signs: Vital Signs Temp 97.6 F 10/09/16 07:00 Pulse 84 10/09/16 11:17 Resp 17 10/09/16 07:00 BP 117/70 10/09/16 07:00 Pulse Ox 96 10/09/16 07:33 Intake & Output 10/08/16 10/09/16 10/09/16 18:59 06:59 18:59 Intake Total 900 Output Total 620 1300 Balance -620 -400 Weight 149.36 kg 149 kg Intake: Intake, IV Titration 600 Amount Sodium Chloride 0.9% 1, 600 000 ml @ 75 mls/hr IV . [id number] Rx#:[id number] Oral 300 Output: Urine 620 1300 Other: Voiding Method Toilet Toilet Toilet Urinal Urinal Urinal Diaper Diaper Diaper # Voids 1 1 - Labs CBC & Chem 7: 10/09/16 07:36 10/09/16 07:36 Labs: Abnormal Lab Results - Last 24 Hours (Table) 10/08/16 10/08/16 10/09/16 Range/Units 17:11 20:49 07:23 RBC (4.30-5.90) m/uL Hgb (13.0-17.5) gm/dL Hct (39.0-53.0) % RDW (11.5-15.5) % Eosinophils # (0-0.7) k/uL Chloride (98-107) mmol/L BUN (9-20) mg/dL Creatinine (0.66-1.25) mg/dL Glucose (74-99) mg/dL POC Glucose (mg/dL) 105 H 135 H 161 H (75-99) mg/dL 10/09/16 10/09/16 Range/Units 07:36 07:36 RBC 3.36 L (4.30-5.90) m/uL Hgb 9.9 L (13.0-17.5) gm/dL Hct 31.6 L (39.0-53.0) % RDW 17.4 H (11.5-15.5) % Eosinophils # 0.9 H (0-0.7) k/uL Chloride 97 L (98-107) mmol/L BUN 141 H* (9-20) mg/dL Creatinine 4.31 H (0.66-1.25) mg/dL Glucose 151 H (74-99) mg/dL POC Glucose (mg/dL) (75-99) mg/dL Assessment and Plan Plan: Assessment: #1. Chronic kidney disease stage IV secondary to nephrosclerosis and cardiorenal syndrome with baseline creatinine near 3.2-3.4. Appears to have progressed to stage V. Urinalysis is completely benign without any proteinuria, hematuria, or white cells. #2. Systolic CHF with ejection fraction of 20-25%. Compensated. #3. Bilateral lower extremity wounds. #4. Insulin-dependent diabetes mellitus. Plan: Hep-Lock IV fluids. Resume Lasix 40 mg IV twice daily. Antibiotics per infectious disease recommendations. Strict I's and O's. Repeat electrolytes in the morning. I discussed with the patient the need for renal replacement therapy. He is in agreement to proceed. Consult vascular surgery for permacath placement. First hemodialysis treatment today. Second treatment tomorrow. Will get leather case finisher on board to help facilitate outpatient hemodialysis in [place].
[2016-10-09 11:57] LABS: Glucose,Whole Blood 161 mg/dL (75-99)
[2016-10-09] MEDS: FUROSEMIDE 10 MG/ML 4 ML VIAL IV SCH ×2 (12:29→23:28)
[2016-10-09 13:20] LABS: Hepatitis B Surface Ag Index 0.06
[2016-10-09 13:38] LABS: Hepatitis C Virus IgG Index 0.15
[2016-10-09 14:11] LABS: Hepatitis C Virus IgG Ab Negative (Negative)
[2016-10-09 14:58] LABS: Hepatitis B Core IgM Index 0.02
[2016-10-09] MEDS: DAPTOmycin 500 MG in SODIUM CHLORIDE 0.9% 50 ML IV SCH (16:14)
[2016-10-09 16:50] LABS: Glucose,Whole Blood 150 mg/dL (75-99)
[2016-10-09] MEDS ORDERED: SODIUM CHLORIDE 0.9% 500 ML IV ONE (17:15)
[2016-10-09] MEDS ORDERED: LIDOCAINE 2% INJ 20 MG/ML SQ ONE ×2 (17:36→17:38)
[2016-10-09] MEDS: fentaNYL (PF) 50 MCG/ML 2 ML AMP IV ONE ×2 (17:41→17:52)
--- NOTE | 2016-10-09 18:35 | XR ---
EXAMINATION TYPE: XR chest 1V DATE OF EXAM: 10/09/2016 6:25 PM CLINICAL HISTORY: Post dialysis catheter placement. TECHNIQUE: Single AP portable upright view of the chest is obtained. COMPARISON: Chest x-ray from 3 days earlier FINDINGS: There is right internal jugular dual-lumen dialysis catheter with tips in SVC. There is pe rsistent cardiomegaly. There is no suspicious focal airspace opacity, pleural effusion, or pneumothor ax seen. Osseous structures are intact IMPRESSION: Cardiomegaly without acute pulmonary process. No significant change from prior. No eviden ce of sizable pneumothorax after right internal jugular dialysis catheter placement.
--- NOTE | 2016-10-09 19:07 | IR ---
EXAMINATION TYPE: IR cvc insert central tunneled DATE OF EXAM: 10/09/2016 7:01 PM CLINICAL HISTORY: Renal failure TECHNIQUE: Fluoroscopy. COMPARISON: None. FINDINGS: Fluoroscopic guidance was provided during central dialysis catheter insertion procedure pe rformed by Dr. Huitron. A total of 18 seconds of fluoroscopic time was utilized during the procedure and several spot images are acquired. Intraoperative images acquired show right internal jugular ana l-lumen dialysis catheter with tips in SVC. IMPRESSION: As Above.
[2016-10-09 20:19] LABS: Glucose,Whole Blood 204 mg/dL (75-99)
[2016-10-09] MEDS: INSULIN GLARGINE 100 UNIT/ML 10 ML VIAL SQ SCH (23:24)
[2016-10-09] MEDS: ASPIRIN 81 MG CHEW PO SCH (23:30)
[2016-10-09] MEDS: DOXEPIN 10 MG CAP PO SCH (23:30)
[2016-10-09] MEDS: EDOXABAN TOSYLATE 30 MG TABLET PO SCH (23:32)
--- NOTE | 2016-10-10 05:23 | PN ---
DATE OF SERVICE: 10/09/2016 This 60-year-old gentleman who was admitted with CHF acute exacerbation, also had significant renal failure also. Nephrology and pulmonology are following the patient closely and dialysis catheter has been assessed by Dr. Varghese. No chest pain or palpitations. The patient is still complaining of shortness of breath and as well as weakness also. On exam, alert and oriented x3. Pulse is 94, blood pressure 117/70, respirations 17, temperature 97.6, pulse ox 96% on room air. HEENT: Conjunctivae normal. NECK: No jugular venous distention. CARDIOVASCULAR: S1 and S2, muffled. RESPIRATORY: Breath sounds diminished at the bases. A few scattered rhonchi and crackles. ABDOMEN: Soft, obese, nontender. LEGS: Bilateral leg swelling. NERVOUS SYSTEM: No focal deficits. LABS: WBC 7.8, hemoglobin 9.9. Sodium 143, potassium 4, BUN is 141. Hepatitis panel is negative. ASSESSMENT: 1. Congestive heart failure acute exacerbation with acute on chronic systolic dysfunction, ejection fraction 25% with acute hypoxic respiratory failure. 2. Acute scrotal cellulitis with bilateral leg cellulitis with non-pressure chronic ulcer due to diabetes mellitus type 2. 3. Chronic obstructive pulmonary disease, acute exacerbation. 4. Morbid obesity, body mass index of 56. 5. Gait dysfunction. 6. History of atrial fibrillation, paroxysmal. 7. History of congestive heart failure, ejection fraction 25%. 8. History of chronic obstructive pulmonary disease. 9. Diabetes mellitus type 2. 10. Gastroesophageal reflux disease. 11. Hypertension, essential. 12. Hyperlipidemia. 13. History of pneumonia. 14. History sleep apnea. 15. History of hypothyroidism. 16. History of chronic kidney disease. 17. History of degenerative joint disease. 18. History of hypothyroidism. 19. History of methicillin-resistant Staphylococcus aureus. 20. History of cholecystectomy. 21. History of depression, not otherwise specified. 22. Remote history of nicotine dependence. 23. FULL CODE. RECOMMENDATIONS AND DISCUSSION: In this 60-year-old gentleman who presented with multiple complex medical issues, we will monitor the patient closely. Continue the current medications, continue symptomatic treatment. Continue fluid electrolyte balance closely. Otherwise, I would recommend continuing the current medications, continue symptomatic treatment. Otherwise, closely monitor . Continue with antibiotics. Infectious Disease and Pulmonary evaluation appreciated. The need for renal replacement therapy is being addressed by nephrology. Dialysis has been inserted and prognosis guarded. Further recommendations to follow.
[2016-10-10] MEDS: METHYLPHENIDATE HCL 10 MG TAB PO SCH ×2 (06:50→15:27)
[2016-10-10] MEDS: LEVOTHYROXINE 75 MCG TAB PO SCH (06:50)
[2016-10-10] MEDS: ALBUTEROL NEBULIZED 2.5 MG/3 ML INHALATION SCH ×4 (06:59→19:52)
[2016-10-10 07:25] LABS: Glucose,Whole Blood 191 mg/dL (75-99)
[2016-10-10] MEDS ORDERED: HEPARIN SODIUM,PORCINE 5,000 UNIT/ML 1 ML VIAL ONE (08:00)
[2016-10-10 08:15] LABS: INR 1.4 (<1.1); Prothrombin Time 13.7 sec (9.0-12.0)
[2016-10-10 08:28] LABS: Anisocytosis Slight; Aty Lym Flag Slight; CH 30.1; CHCM 32.6; HCT 32.5 % (39.0-53.0); HDW 3.34; HGB 10.9 gm/dL (13.0-17.5); Hypochromasia Slight; MCH 31.3 pg (25.0-35.0); MCHC 33.7 g/dL (31.0-37.0); MCV 92.9 fL (80.0-100.0); Mean Platelet Volume 7.7; RDW 17.1 % (11.5-15.5); WBC 7.6 k/uL (3.8-10.6); WBC (Perox) 7.45
[2016-10-10 08:33] LABS: Calcium 9.2 mg/dL (8.4-10.2); Potassium 4.1 mmol/L (3.5-5.1); Total Bilirubin 0.8 mg/dL (0.2-1.3); Total Protein 8.3 g/dL (6.3-8.2)
--- NOTE | 2016-10-10 08:50 | PN ---
DATE OF SERVICE: 10/09/2016 Reason for follow up is bilateral lower extremity wound and cellulitis. INTERVAL HISTORY: The patient is afebrile. He has been breathing comfortably. Denies significant chest pain. No cough, no abdominal pain or any diarrhea. On examination, blood pressure 122/89, pulse of 88, temperature 98.9. He is 97% on room air. General description is a middle-age male lying in bed in no distress. RESPIRATORY: Unlabored breathing. Clear to auscultation anteriorly. HEART: S1, S2. Regular rate and rhythm. ABDOMEN: Soft, no tenderness. Bilateral legs are currently wrapped up. No obvious drainage in the dressing. LABS: Hemoglobin is 9.1, white count 7.8 with BUN of 141, creatinine is 4.31. Wound culture so far is negative. DIAGNOSTIC IMPRESSION AND PLAN: Patient with bilateral lower extremity venostasis ulcer with secondary cellulitis. Culture now with normal skin oliver with a previous history of methicillin-resistant Staphylococcus aureus infection , currently on daptomycin with high risk of nephrotoxicity. Plan to finish therapy with oral antibiotics. Local wound care with Aquacel silver and an Aftab wrap to keep the swelling down. Continue supportive care. MTDD
[2016-10-10] MEDS: INSULIN LISPRO (humaLOG) 300 UNIT/3 ML VIAL SQ SCH ×3 (09:04→17:11)
[2016-10-10] MEDS: glipiZIDE 10 MG TAB PO SCH (09:05)
[2016-10-10] MEDS: SACUBITRIL/VALSARTAN 24 MG-26 MG TABLET PO SCH ×2 (09:05→20:55)
[2016-10-10] MEDS: FLUCONAZOLE 100 MG TAB PO SCH (09:05)
[2016-10-10] MEDS: PANTOPRAZOLE 40 MG TABLET PO SCH (09:05)
[2016-10-10] MEDS: METOPROLOL TARTRATE 25 MG TAB PO SCH (09:05)
[2016-10-10] MEDS: ALLOPURINOL 100 MG TAB PO SCH (09:05)
[2016-10-10] MEDS: PARoxetine 20 MG TAB PO SCH (09:06)
[2016-10-10] MEDS: PREGABALIN 75 MG CAP PO SCH ×2 (09:08→20:54)
[2016-10-10] MEDS: FUROSEMIDE 10 MG/ML 4 ML VIAL IV SCH (09:30)
[2016-10-10 09:39] LABS: Add Differential Manual Differential
--- NOTE | 2016-10-10 09:40 | PCN ---
DATE OF PROCEDURE: PREOPERATIVE DIAGNOSIS: Acute on chronic renal failure. PROCEDURE: Ultrasound-guided placement of dialysis catheter, right internal jugular approach. Patient was brought to the [facility]. The right side of the neck and chest was prepped and draped in the usual sterile manner; 1% lidocaine were injected for the neck and chest area. Ultrasound-guided micropuncture into the right internal jugular vein, 4 Finnish dilator advanced and the guidewire was passed, which was parked at the inferior vena cava, then dilator was advanced over the guidewire. Then sheath was advanced, through that we placed the 28 cm through the tunnel, dialysis catheter. Tip of the catheter remained in the jugular vein and superior line atrial junction. Sheath was removed and flushed with heparin saline, hep-locked. Incision closed with Vicryl and nylon. Dressing applied. Patient tolerated the procedure well.
[2016-10-10 09:44] LABS: Nucleated Red Blood Cells 0 /100 WBC (0-0); Total Cells Counted 200
[2016-10-10 09:45] LABS: Manual Review Performed
[2016-10-10] MEDS: NYSTATIN 100,000UNIT/GM CREAM 30 GM TUBE TOPICAL SCH ×2 (11:25→20:55)
--- NOTE | 2016-10-10 11:29 | P.PN ---
Subjective Patient is seen in follow-up for acute kidney injury on chronic kidney disease. Renal function has not improved with creatinine at 4.22 today. His BUN level has increased to 142. His oral intake is good. He is nonoliguric with urine output near 2 L in the last 24 hours. Denies chest pain or shortness of breath. Currently being treated for lower extremity wounds. Patient has chronic kidney disease stage IV secondary to nephrosclerosis with baseline creatinine in the range of 3.2-3.4. He appears to have progressed to chronic kidney disease stage V. He received a permacath yesterday. Admits to pain at the surgical site. Vital signs are stable. General: The patient appeared well nourished and normally developed. HEENT: Head exam is unremarkable. Neck is without jugular venous distension. LUNGS: Lungs are clear to auscultation and percussion. Breath sounds decreased. HEART: Rate and Rhythm are regular. First and second heart sounds normal. No murmurs, rubs or gallops. ABDOMEN: Abdominal exam reveals normal bowel sounds. Non-tender and non- distended. No evidence of peritonitis. EXTREMITITES: No clubbing, cyanosis, or edema. No obvious drainage from the wounds which are wrapped. Objective - Vital Signs Vital signs: Vital Signs Temp 97.9 F 10/10/16 07:00 Pulse 96 10/10/16 11:07 Resp 16 10/10/16 07:00 BP 90/75 10/10/16 07:00 Pulse Ox 92 L 10/10/16 07:00 Intake & Output 10/09/16 10/10/16 10/10/16 18:59 06:59 18:59 Intake Total 100 690 Output Total 480 Balance 100 210 Weight 149 kg Intake: IV 100 Oral 690 Output: Urine 480 Other: Voiding Method Toilet Toilet Urinal Urinal Diaper Diaper # Voids 1 # Bowel Movements 1 - Labs CBC & Chem 7: 10/10/16 07:48 10/10/16 07:48 Labs: Abnormal Lab Results - Last 24 Hours (Table) 10/09/16 10/09/16 10/09/16 Range/Units 11:55 16:43 20:07 RBC (4.30-5.90) m/uL Hgb (13.0-17.5) gm/dL Hct (39.0-53.0) % RDW (11.5-15.5) % Eosinophils # (Manual) (0-0.7) k/uL PT (9.0-12.0) sec BUN (9-20) mg/dL Creatinine (0.66-1.25) mg/dL Glucose (74-99) mg/dL POC Glucose (mg/dL) 161 H 150 H 204 H (75-99) mg/dL Total Protein (6.3-8.2) g/dL 10/10/16 10/10/16 10/10/16 Range/Units 07:24 07:48 07:48 RBC 3.50 L (4.30-5.90) m/uL Hgb 10.9 L (13.0-17.5) gm/dL Hct 32.5 L (39.0-53.0) % RDW 17.1 H (11.5-15.5) % Eosinophils # (Manual) 1.1 H (0-0.7) k/uL PT (9.0-12.0) sec BUN 142 H* (9-20) mg/dL Creatinine 4.22 H (0.66-1.25) mg/dL Glucose 133 H (74-99) mg/dL POC Glucose (mg/dL) 191 H (75-99) mg/dL Total Protein 8.3 H (6.3-8.2) g/dL 10/10/16 Range/Units 07:48 RBC (4.30-5.90) m/uL Hgb (13.0-17.5) gm/dL Hct (39.0-53.0) % RDW (11.5-15.5) % Eosinophils # (Manual) (0-0.7) k/uL PT 13.7 H (9.0-12.0) sec BUN (9-20) mg/dL Creatinine (0.66-1.25) mg/dL Glucose (74-99) mg/dL POC Glucose (mg/dL) (75-99) mg/dL Total Protein (6.3-8.2) g/dL Assessment and Plan Plan: Assessment: #1. Chronic kidney disease stage IV secondary to nephrosclerosis and cardiorenal syndrome with baseline creatinine near 3.2-3.4. Appears to have progressed to end-stage renal disease. Urinalysis is completely benign without any proteinuria, hematuria, or white cells. #2. Systolic CHF with ejection fraction of 20-25%. Compensated. #3. Bilateral lower extremity wounds. #4. Insulin-dependent diabetes mellitus. Plan: Hep-Lock IV fluids. Continue Lasix 40 mg IV twice daily. Antibiotics per infectious disease recommendations. I discussed with the patient the need for renal replacement therapy. He is in agreement to proceed. Consult vascular surgery for permacath placement. First hemodialysis treatment today. Second treatment tomorrow. manager licensing on board to help facilitate outpatient hemodialysis in [place].
[2016-10-10 12:26] LABS: Glucose,Whole Blood 228 mg/dL (75-99)
--- NOTE | 2016-10-10 15:29 | PN ---
DATE OF SERVICE: 10/10/2016 Reason for followup is bilateral lower extremity wound and cellulitis. INTERVAL HISTORY: The patient is afebrile. The patient did get a dialysis catheter for dialysis. The patient denies any significant chest pain. Also, no abdominal pain. There was ( ) in the lung area. On examination, blood pressure is 90/75 with a pulse of 88, temperature 97.9, he is 92% on room air. General description is a middle-age male, up in the bed in no distress. RESPIRATORY SYSTEM: Unlabored breathing. Clear to auscultation anteriorly. HEART: S1, S2, regular rate and rhythm. ABDOMEN: Soft, no tenderness. Bilateral leg wound overall swelling and redness has improved. No drainage. LABS: Hemoglobin is 10.9, white count 7.6 with BUN of 142 and creatinine of 4.22. DIAGNOSTIC IMPRESSION AND PLAN: Patient with bilateral lower extremity venostasis ulcer secondary to cellulitis. Culture is negative for any resistant pathogen. He should be able to finish therapy with oral antibiotics. Continue local wound care with us Aquacel Silver dressing and Aftab wrap to keep the swelling down. Continue supportive care.
--- NOTE | 2016-10-10 15:50 | P.PN ---
Subjective This is a 60-year-old morbidly obese male who is being evaluated and examined today on the fifth floor. This patient has a history of pulmonary hypertension , cor pulmonale and chronic cellulitis of his lower extremities. Patient has a history of congestive heart failure as well. Patient is well-known to our services and has a history of obstructive sleep apnea. He does have a CPAP machine at home but he is on and off with his compliance with his machine. Patient was brought into the emergency room with a seizure associated by perianal bleeding likely from his scrotal bleeding versus a GI bleed. Patient has chronic swelling of his lower extremities and also has sores to his lower extremities. Patient's overall is a poor historian. Patient has been using his nebulizer machine and supplemental oxygen at home however his BiPAP is not being used consistently. Upon examination the patient is resting up in his chair on 3 L of supplemental oxygen. Patient states that at home he uses 2 L. Patient does complain of a cough that is nonproductive. Patient states he is feeling better. Objective - Vital Signs Vital signs: Vital Signs Temp 97.7 F 10/10/16 14:58 Pulse 98 10/10/16 14:58 Resp 16 10/10/16 14:58 BP 110/75 10/10/16 14:58 Pulse Ox 92 L 10/10/16 14:58 Intake & Output 10/09/16 10/10/16 10/10/16 18:59 06:59 18:59 Intake Total 100 690 360 Output Total 480 Balance 100 210 360 Weight 149 kg Intake: IV 100 Oral 690 360 Output: Urine 480 Other: Voiding Method Toilet Toilet Urinal Urinal Diaper Diaper # Voids 1 # Bowel Movements 1 - Exam GENERAL EXAM: Alert, active, comfortable in no apparent distress. HEAD: Normocephalic. EYES: Normal reaction of pupils, equal size. NOSE: Clear with pink turbinates. THROAT: No erythema or exudates. Now pharyngeal opening NECK: No masses, no JVD. Neck veins prominent CHEST: No chest wall deformity. LUNGS: Equal air entry with no , wheeze, rhonchi or dullness. Few crackles at the bases. CVS: S1 and S2 normal with no audible mumurs, regular rhythm. ABDOMEN: No hepatosplenomegaly, normal bowel sounds, no guarding or rigidity. EXTREMITIES: +3 edema noted, pedal pulses palpable. Bilateral lower leg dressings in place. SKIN: No rashes CENTRAL NERVOUS SYSTEM: No focal deficits, tone is normal in all 4 extremities. - Labs CBC & Chem 7: 10/10/16 07:48 10/10/16 07:48 Labs: Abnormal Lab Results - Last 24 Hours (Table) 10/09/16 10/09/16 10/10/16 Range/Units 16:43 20:07 07:24 RBC (4.30-5.90) m/uL Hgb (13.0-17.5) gm/dL Hct (39.0-53.0) % RDW (11.5-15.5) % Eosinophils # (Manual) (0-0.7) k/uL PT (9.0-12.0) sec BUN (9-20) mg/dL Creatinine (0.66-1.25) mg/dL Glucose (74-99) mg/dL POC Glucose (mg/dL) 150 H 204 H 191 H (75-99) mg/dL Total Protein (6.3-8.2) g/dL 10/10/16 10/10/16 10/10/16 Range/Units 07:48 07:48 07:48 RBC 3.50 L (4.30-5.90) m/uL Hgb 10.9 L (13.0-17.5) gm/dL Hct 32.5 L (39.0-53.0) % RDW 17.1 H (11.5-15.5) % Eosinophils # (Manual) 1.1 H (0-0.7) k/uL PT 13.7 H (9.0-12.0) sec BUN 142 H* (9-20) mg/dL Creatinine 4.22 H (0.66-1.25) mg/dL Glucose 133 H (74-99) mg/dL POC Glucose (mg/dL) (75-99) mg/dL Total Protein 8.3 H (6.3-8.2) g/dL 10/10/16 Range/Units 12:25 RBC (4.30-5.90) m/uL Hgb (13.0-17.5) gm/dL Hct (39.0-53.0) % RDW (11.5-15.5) % Eosinophils # (Manual) (0-0.7) k/uL PT (9.0-12.0) sec BUN (9-20) mg/dL Creatinine (0.66-1.25) mg/dL Glucose (74-99) mg/dL POC Glucose (mg/dL) 228 H (75-99) mg/dL Total Protein (6.3-8.2) g/dL Assessment and Plan Plan: Assessment Sleep disorder breathing, sleep apnea, severe chronic obstructive sleep apnea Severe chronic obstructive pulmonary disease Acute renal failure Chronic Kidney Disease stage IV Cardiomyopathy with acute on chronic systolic and diastolic heart failure Severe pulmonary hypertension related to multifactorial processes Obesity hypoventilation syndrome Diabetes mellitus Plan Medications have been reviewed and will be continued as ordered. We will continue with supplemental oxygen, pulmonary hygiene and supportive care. Continue with the patient's nebulizer treatments. Continue to encourage patient to use his BiPAP at night and when necessary. We will continue to monitor labs/results and adjust treatment as necessary. I performed an examination of the patient and discussed their management with the nurse practitioner. I have reviewed the nurse practitioner's note and agree with the documented findings and plan of care.
[2016-10-10 16:59] LABS: Glucose,Whole Blood 110 mg/dL (75-99)
[2016-10-10] MEDS: INSULIN GLARGINE 100 UNIT/ML 10 ML VIAL SQ SCH (20:34)
[2016-10-10 20:48] LABS: Glucose,Whole Blood 144 mg/dL (75-99)
[2016-10-10] MEDS: DOXEPIN 10 MG CAP PO SCH (20:54)
[2016-10-10] MEDS: ASPIRIN 81 MG CHEW PO SCH (20:54)
[2016-10-10] MEDS: EDOXABAN TOSYLATE 30 MG TABLET PO SCH (21:39)
--- NOTE | 2016-10-10 22:38 | PN ---
DATE OF SERVICE: 10/10/2016 This 60-year-old gentleman who was admitted with multiple medical problems, including CHF acute exacerbation, also had a scrotal cellulitis and bilateral leg cellulitis. The patient also has COPD and renal failure, also dialysis catheter inserted yesterday for possible hemodialysis. Multiple consultants are following the patient closely. On exam alert and oriented x2. Pulse 98, blood pressure 120/74, respirations 16, temperature 97.7, pulse ox 92% on room air. HEENT: Conjunctivae normal. NECK: No jugular venous distension. CARDIOVASCULAR: S1 and S2 muffled. RESPIRATORY: Breath sounds diminished in the bases. A few scattered rhonchi. No crackles. ABDOMEN: Soft, obese, nontender. LEGS: Bilateral leg edema, cellulitis. NERVOU SYSTEM: No focal deficits. LABS: WBC7.6, hemoglobin is 10.9. Creatinine is 4.22. ASSESSMENT: 1. Congestive heart failure acute exacerbation with acute on chronic systolic dysfunction, ejection fraction 25% with acute hypoxic respiratory failure. 2. Acute scrotal cellulitis with bilateral leg cellulitis with a nonpressure chronic ulcer due to diabetes mellitus type 2. 3. Chronic obstructive pulmonary disease, acute exacerbation. 4. Morbid obesity, body mass index of 56. 5. Gait dysfunction. 6. History of atrial fibrillation, paroxysmal. 7. History of congestive heart failure, ejection fraction about 25%. 8. History of chronic obstructive pulmonary disease. 9. Diabetes mellitus type 2. 10. Gastroesophageal reflux disease. 11. Hypertension, essential. 12. Hyperlipidemia. 13. History of pneumonia. 14. History of sleep apnea. 15. History of hypothyroidism. 16. History of chronic kidney disease. 17. History of degenerative joint disease. 18. History of methicillin-resistant Staphylococcus aureus. 19. History of cholecystectomy. 20. History of depression, not otherwise specified. 21. Remote history nicotine dependence. 22. FULL CODE. RECOMMENDATIONS AND DISCUSSION: Continue current medications. Continue monitoring and symptomatic treatment. Otherwise at this time, hemodialysis per Nephrology. The patient is also from [facility] will be discharged possibly, since they have dialysis arrangements. Further recommendations to follow. Will closely follow with Nephrology. [facility]OS[facility]ITALSha
[2016-10-11 00:35] LABS: Anisocytosis Slight; Basophils # (A) 0.1 k/uL (0-0.2); Basophils % (A) 1 %; CH 29.9; CHCM 31.3; Eosinophils # (A) 1.2 k/uL (0-0.7); Eosinophils % (A) 13 %; HCT 30.5 % (39.0-53.0); HDW 3.18; Hypochromasia Moderate; Luc # (Auto) 0.28; Luc % (Auto) 3; Lymphocytes # (A) 1.8 k/uL (1.0-4.8); Lymphocytes % (A) 20 %; MCH 29.6 pg (25.0-35.0); MCHC 30.8 g/dL (31.0-37.0); MCV 96.1 fL (80.0-100.0); Macrocytosis Slight; Mean Platelet Volume 8.8; Monocytes # (A) 0.6 k/uL (0-1.0); Monocytes % (A) 6 %; Neutrophils % (A) 57 %; RBC 3.17 m/uL (4.30-5.90); RDW 17.5 % (11.5-15.5); WBC 8.8 k/uL (3.8-10.6); WBC (Perox) 9.15
[2016-10-11 00:41] LABS: INR 1.2 (<1.1); Prothrombin Time 12.2 sec (9.0-12.0)
[2016-10-11 00:50] LABS: HGB 9.4 gm/dL (13.0-17.5)
[2016-10-11 02:44] LABS: Glucose,Whole Blood 247 mg/dL (75-99)
[2016-10-11] MEDS: FUROSEMIDE 10 MG/ML 4 ML VIAL IV SCH ×3 (04:27→22:27)
[2016-10-11] MEDS: METOPROLOL TARTRATE 25 MG TAB PO SCH ×3 (04:27→22:27)
[2016-10-11 04:40] LABS: Anisocytosis Slight; Basophils # (A) 0.1 k/uL (0-0.2); Basophils % (A) 1 %; CH 30.2; CHCM 33.3; Eosinophils # (A) 1.3 k/uL (0-0.7); Eosinophils % (A) 15 %; HCT 29.5 % (39.0-53.0); HDW 3.43; HGB 10.4 gm/dL (13.0-17.5); Hypochromasia Slight; Luc # (Auto) 0.36; Luc % (Auto) 4; Lymphocytes # (A) 2.1 k/uL (1.0-4.8); Lymphocytes % (A) 23 %; MCHC 35.1 g/dL (31.0-37.0); MCV 91.2 fL (80.0-100.0); Mean Platelet Volume 8.2; Monocytes # (A) 0.7 k/uL (0-1.0); Monocytes % (A) 7 %; Neutrophils # (A) 4.5 k/uL (1.3-7.7); Neutrophils % (A) 50 %; Poikilocytosis Slight; RBC 3.24 m/uL (4.30-5.90); RDW 17.5 % (11.5-15.5); WBC (Perox) 8.64
[2016-10-11 05:10] LABS: INR 1.2 (<1.1); Partial Thromboplastin Time 24.8 sec (22.0-30.0); Prothrombin Time 11.8 sec (9.0-12.0)
[2016-10-11 05:19] LABS: Potassium 4.5 mmol/L (3.5-5.1); Total Bilirubin 0.6 mg/dL (0.2-1.3); Total Protein 7.4 g/dL (6.3-8.2)
[2016-10-11 07:38] LABS: Glucose,Whole Blood 149 mg/dL (75-99)
[2016-10-11] MEDS: ALBUTEROL NEBULIZED 2.5 MG/3 ML INHALATION SCH ×4 (08:11→19:57)
[2016-10-11] MEDS: NYSTATIN 100,000UNIT/GM CREAM 30 GM TUBE TOPICAL SCH (08:30)
[2016-10-11] MEDS: ALLOPURINOL 100 MG TAB PO SCH (09:26)
[2016-10-11] MEDS: SACUBITRIL/VALSARTAN 24 MG-26 MG TABLET PO SCH ×2 (09:26→22:26)
[2016-10-11] MEDS: PARoxetine 20 MG TAB PO SCH (09:27)
[2016-10-11] MEDS: glipiZIDE 10 MG TAB PO SCH (09:27)
[2016-10-11] MEDS: PANTOPRAZOLE 40 MG TABLET PO SCH (09:27)
[2016-10-11] MEDS: LEVOTHYROXINE 75 MCG TAB PO SCH (09:27)
[2016-10-11] MEDS: FLUCONAZOLE 100 MG TAB PO SCH (09:28)
[2016-10-11] MEDS: PREGABALIN 75 MG CAP PO SCH ×2 (09:31→22:34)
[2016-10-11] MEDS: METHYLPHENIDATE HCL 10 MG TAB PO SCH ×2 (09:31→17:15)
[2016-10-11] MEDS: INSULIN LISPRO (humaLOG) 300 UNIT/3 ML VIAL SQ SCH ×3 (09:32→18:10)
--- NOTE | 2016-10-11 10:51 | XR ---
EXAMINATION TYPE: XR chest 1V DATE OF EXAM: 10/11/2016 7:05 AM COMPARISON: 10/09/2016 INDICATION: Short of breath TECHNIQUE: Single frontal view of the chest is obtained. FINDINGS: The heart size is normal. The pulmonary vasculature is normal. The lungs are clear. Double-lumen catheter is present on the right with the tips in the proximal superior vena cava region . IMPRESSION: 1. No acute pulmonary process.
[2016-10-11 11:15] LABS: Glucose,Whole Blood 260 mg/dL (75-99)
--- NOTE | 2016-10-11 11:41 | P.PN ---
Subjective Patient is seen in follow-up for acute kidney injury on chronic kidney disease. He seems to have progressed to end-stage renal disease and is now maintained on hemodialysis. His oral intake is good. Denies chest pain or shortness of breath. Currently being treated for lower extremity wounds. He was transferred to the ICU yesterday due to bleeding from the catheter site. This seems to have resolved. Hemoglobin stable. He tolerated first treatment of hemodialysis well yesterday. Vital signs are stable. General: The patient appeared well nourished and normally developed. HEENT: Head exam is unremarkable. Neck is without jugular venous distension. LUNGS: Lungs are clear to auscultation and percussion. Breath sounds decreased. HEART: Rate and Rhythm are regular. First and second heart sounds normal. No murmurs, rubs or gallops. ABDOMEN: Abdominal exam reveals normal bowel sounds. Non-tender and non- distended. No evidence of peritonitis. EXTREMITITES: No clubbing, cyanosis, or edema. No obvious drainage from the wounds which are wrapped. Objective - Vital Signs Vital signs: Vital Signs Temp 97.6 F 10/11/16 04:00 Pulse 90 10/11/16 11:00 Resp 21 10/11/16 11:00 BP 90/51 10/11/16 11:00 Pulse Ox 98 10/11/16 11:00 Intake & Output 10/10/16 10/11/16 10/11/16 18:59 06:59 18:59 Intake Total 360 60 100 Output Total 480 100 450 Balance -120 -40 -350 Weight 149 kg 147.6 kg Intake: IV 60 100 .9 kvo 60 100 Oral 360 Output: Urine 480 100 450 Other: Voiding Method Urinal # Voids 1 # Bowel Movements 1 - Labs CBC & Chem 7: 10/11/16 03:47 10/11/16 03:47 Labs: Abnormal Lab Results - Last 24 Hours (Table) 10/10/16 10/10/16 10/10/16 Range/Units 12:25 16:54 20:27 RBC (4.30-5.90) m/uL Hgb (13.0-17.5) gm/dL Hct (39.0-53.0) % MCHC (31.0-37.0) g/dL RDW (11.5-15.5) % Eosinophils # (0-0.7) k/uL PT (9.0-12.0) sec BUN (9-20) mg/dL Creatinine (0.66-1.25) mg/dL Glucose (74-99) mg/dL POC Glucose (mg/dL) 228 H 110 H 144 H (75-99) mg/dL 10/11/16 10/11/16 10/11/16 Range/Units 00:12 00:12 02:42 RBC 3.17 L (4.30-5.90) m/uL Hgb 9.4 L D (13.0-17.5) gm/dL Hct 30.5 L (39.0-53.0) % MCHC 30.8 L (31.0-37.0) g/dL RDW 17.5 H (11.5-15.5) % Eosinophils # 1.2 H (0-0.7) k/uL PT 12.2 H (9.0-12.0) sec BUN (9-20) mg/dL Creatinine (0.66-1.25) mg/dL Glucose (74-99) mg/dL POC Glucose (mg/dL) 247 H (75-99) mg/dL 10/11/16 10/11/16 10/11/16 Range/Units 03:47 03:47 07:37 RBC 3.24 L (4.30-5.90) m/uL Hgb 10.4 L (13.0-17.5) gm/dL Hct 29.5 L (39.0-53.0) % MCHC (31.0-37.0) g/dL RDW 17.5 H (11.5-15.5) % Eosinophils # 1.3 H (0-0.7) k/uL PT (9.0-12.0) sec BUN 116 H* (9-20) mg/dL Creatinine 3.80 H (0.66-1.25) mg/dL Glucose 185 H (74-99) mg/dL POC Glucose (mg/dL) 149 H (75-99) mg/dL 10/11/16 Range/Units 11:07 RBC (4.30-5.90) m/uL Hgb (13.0-17.5) gm/dL Hct (39.0-53.0) % MCHC (31.0-37.0) g/dL RDW (11.5-15.5) % Eosinophils # (0-0.7) k/uL PT (9.0-12.0) sec BUN (9-20) mg/dL Creatinine (0.66-1.25) mg/dL Glucose (74-99) mg/dL POC Glucose (mg/dL) 260 H (75-99) mg/dL Assessment and Plan Plan: Assessment: #1. Chronic kidney disease stage IV secondary to nephrosclerosis and cardiorenal syndrome with baseline creatinine near 3.2-3.4. Appears to have progressed to end-stage renal disease. Urinalysis is completely benign without any proteinuria, hematuria, or white cells. #2. Systolic CHF with ejection fraction of 20-25%. Compensated. #3. Bilateral lower extremity wounds. #4. Insulin-dependent diabetes mellitus. Plan: Hep-Lock IV fluids. Continue Lasix 40 mg IV twice daily. Check phosphorus level. Antibiotics per infectious disease recommendations. Second treatment of hemodialysis today and third treatment tomorrow. marketing programs manager on board to help facilitate outpatient hemodialysis in [place].
[2016-10-11] MEDS ORDERED: INSULIN GLARGINE 100 UNIT/ML 10 ML VIAL SQ ONE (13:00)
--- NOTE | 2016-10-11 15:44 | PN ---
This patient is a 60-year-old morbidly obese male who was seen, evaluated, examined in the ICU, where he is being monitored and observed for his right-sided neck small hematoma, which appears to be stable. Patient does have a pressure dressing, which I removed and looked at the area; no evidence of active bleeding was seen. Very mild swelling is present. His hemodynamic status is stable. I have discussed with him at length about the importance of using the BiPAP machine each night. His blood pressure is 90/50, respiratory rate 21, pulse 88, temperature 98, saturation of 98% on 2 L oxygen. HEENT EXAMINATION: Otherwise unremarkable. Narrow pharyngeal opening is present. Mallampati grade 4. NECK: Supple. The surgical site at right IJ as well as subclavian site are intact. Some swelling and a small hematoma; essentially unremarkable. Otherwise stable. LUNGS: Bilateral good air entry without significant rales, rhonchi or rub. HEART: Regular rate, rhythm. S1, S2 audible. ABDOMEN: Soft. No rebound or rigidity. EXTREMITIES: Plus one peripheral pulses and chronic edema present with chronic cellulitic changes. Labs are reviewed. Patient did have hemodialysis yesterday. Today is first day post hemodialysis. BUN is down to 116. Creatinine is down to 3.8. Glucose remains 185. Rest of the chemistry and CBC reviewed as well. IMPRESSION: 1. Acute on chronic hypoxic respiratory failure and hypercapnic respiratory failure with obesity hypoventilation. Patient has been emphasized about using the BiPAP machine each night and p.r.n. during the day. 2. Acute on chronic renal failure. Continue dialysis as planned. 3. Small hematoma in the right neck which is stable. No evidence of worsening is seen. Hemoglobin is stable. 4. Hyperglycemia; uncontrolled diabetes. 5. Cellulitis of the lower extremity, on local wound care with pressure dressing as well as empiric antibiotics with leg elevation. Will follow.
--- NOTE | 2016-10-11 15:48 | PN ---
The patient is a 60-year-old with congestive heart failure, chronic systolic dysfunction, ejection fraction of around 25% along with end stage renal disease probably related to cardiorenal syndrome. He is admitted for bilateral scrotal cellulitis and significant scrotal swelling related to congestive heart failure exacerbation. The patient on IV Lasix at this point of time which will be continued. The patient still has cardiorenal scrotal cellulitis. The patient is definitely high risk for readmission. Patient is morbidly obese, probably has sleep apnea. Although the patient's RSV is only 36 from the previous echocardiogram. REVIEW OF SYSTEMS: CARDIOVASCULAR: No chest pain, no orthopnea, no PND, no palpitations. PULMONARY: Improved shortness of breath. No cough or hemoptysis. GASTROINTESTINAL: No diarrhea, nausea or vomiting. No abdominal pain. Normoactive bowel sounds. GENITOURINARY: Mild scrotal cellulitis as mentioned earlier. NEUROLOGIC: No headaches, no weakness, no numbness. PHYSICAL EXAMINATION: Temperature 97.6, pulse of 19, respiratory rate of 21, blood pressure is 98/51, saturating at 98% on 2 liters of O2 by nasal cannula. GENERAL: Morbidly obese. Alert and oriented x3. HEENT: Pupils are round and equally reacting to light. EOMI. No scleral icterus. No conjunctival pallor. Normocephalic, atraumatic. No pharyngeal erythema. No thyromegaly. CARDIOVASCULAR: S1 and S2 present. No murmurs, rubs, or gallops. PULMONARY: Chest is clear to auscultation, no wheezing or crackles. ABDOMEN: Soft, nontender, nondistended, normoactive bowel sounds. No palpable organomegaly. MUSCULOSKELETAL: No joint swelling or deformity. EXTREMITIES: Patient does have bilateral edema with scrotal swelling and severe scrotal cellulitis which appears as per the nursing staff is improving. NEUROLOGICAL: Gross neurological examination did not reveal any focal deficits. SKIN: No rashes. LABORATORY DATA: CBC abnormal for elevated BUN of 116, and creatinine of 3.8, BUN is improving from hemodialysis. ASSESSMENT AND PLAN: 1. Acute hypoxic respiratory failure secondary to congestive heart failure exacerbation. Patient has chronic systolic dysfunction, ejection fraction of 25%. Patient will be continued on Lasix. Patient is transferred out of ICU. 2. Atrial fibrillation, paroxysmal, rate controlled. 3. Chronic obstructive pulmonary disease without acute exacerbation. 4. Diabetes mellitus type 2 with uncontrolled blood sugars continue with present regimen. Glipizide is not appropriate which will be discontinued. Patient will increase the dose of Lantus, get rid of glipizide and patient's blood elevated blood sugars are secondary to systemic steroids. 5. Severe sleep apnea and morbid obesity, probably obesity hypoventilation syndrome. 6. Hypertension. 7. Hyperlipidemia. 8. Hypothyroidism. 9. End stage renal disease, hemodialysis and probably cardiorenal syndrome. Patient may even have diabetic nephropathy. Patient does have diabetic peripheral neuropathy. 10. Scrotal cellulitis for which patient is on daptomycin, which will be continued. 11. Degenerative joint disease. Patient has multiple medical problems. The patient's prognosis is extremely poor.
[2016-10-11 17:28] LABS: Glucose,Whole Blood 125 mg/dL (75-99)
[2016-10-11] MEDS ORDERED: HEPARIN SODIUM,PORCINE 5,000 UNIT/ML 1 ML VIAL ONE (21:00)
[2016-10-11 21:19] LABS: Glucose,Whole Blood 96 mg/dL (75-99)
[2016-10-11] MEDS: ASPIRIN 81 MG CHEW PO SCH (22:24)
[2016-10-11] MEDS: INSULIN GLARGINE 100 UNIT/ML 10 ML VIAL SQ SCH (22:25)
[2016-10-11] MEDS: CEPHALEXIN 500 MG CAP PO SCH (22:26)
[2016-10-11] MEDS: DOXEPIN 10 MG CAP PO SCH (22:27)
[2016-10-11] MEDS: EDOXABAN TOSYLATE 30 MG TABLET PO SCH (22:27)
[2016-10-12] MEDS: NYSTATIN 100,000UNIT/GM CREAM 30 GM TUBE TOPICAL SCH ×3 (00:07→20:08)
[2016-10-12] MEDS: METHYLPHENIDATE HCL 10 MG TAB PO SCH ×2 (06:00→17:45)
[2016-10-12] MEDS: LEVOTHYROXINE 75 MCG TAB PO SCH (06:14)
[2016-10-12 07:25] LABS: Glucose,Whole Blood 72 mg/dL (75-99)
[2016-10-12] MEDS: ALBUTEROL NEBULIZED 2.5 MG/3 ML INHALATION SCH ×4 (07:29→19:20)
--- NOTE | 2016-10-12 07:37 | PN ---
DATE OF SERVICE: 10/11/2016 Reason for followup is bilateral lower extremity wound and cellulitis. INTERVAL HISTORY: The patient is afebrile, has been breathing comfortably. Denies significant chest pain, no cough. No abdominal pain. No nausea, vomiting or any diarrhea. No obvious pain in the leg wound area. On examination, blood pressure is 108/61 with a pulse of 100, temperature 97.6. General description is a middle-age male up in the bed in no distress. RESPIRATORY SYSTEM: Unlabored breathing. Clear to auscultation anteriorly. HEART: S1, S2. Regular rate and rhythm. ABDOMEN: Soft, no tenderness. Bilateral leg dressed in AFTAB wrap, no obvious drainage on the dressing. LABS: White count normal at 9.0, wound culture has been negative for any resistant pathogen. DIAGNOSTIC IMPRESSION AND PLAN: Patient with bilateral extremity wounds, also with secondary cellulitis. No resistant organism has been grown and patient has been treated with daptomycin as did have previous history of MRSA infection. Patient given a short course of Keflex. Local would care with Aquacel Silver dressing and along with Aftab wrap to keep the swelling down. Continue supportive care. [facility]
[2016-10-12] MEDS: INSULIN LISPRO (humaLOG) 300 UNIT/3 ML VIAL SQ SCH ×2 (09:09→17:47)
[2016-10-12] MEDS: PREGABALIN 75 MG CAP PO SCH ×2 (09:10→20:10)
[2016-10-12] MEDS: PARoxetine 20 MG TAB PO SCH (09:10)
[2016-10-12] MEDS: ALLOPURINOL 100 MG TAB PO SCH (09:10)
[2016-10-12] MEDS: FLUCONAZOLE 100 MG TAB PO SCH (09:11)
[2016-10-12] MEDS: CEPHALEXIN 500 MG CAP PO SCH ×2 (09:11→20:06)
[2016-10-12] MEDS: PANTOPRAZOLE 40 MG TABLET PO SCH (09:11)
[2016-10-12] MEDS: SACUBITRIL/VALSARTAN 24 MG-26 MG TABLET PO SCH ×2 (09:11→20:07)
[2016-10-12] MEDS: FUROSEMIDE 10 MG/ML 4 ML VIAL IV SCH ×2 (09:36→22:39)
--- NOTE | 2016-10-12 10:23 | P.PN ---
Subjective Patient is seen in follow-up for acute kidney injury on chronic kidney disease. He has progressed to end-stage renal disease and is now maintained on hemodialysis. His oral intake is good. Denies chest pain or shortness of breath. Currently being treated for lower extremity wounds. He underwent second treatment of hemodialysis yesterday and tolerated it well. Currently sitting up in a chair. He is noted to be in atrial fibrillation. Vital signs are stable. General: The patient appeared well nourished and normally developed. HEENT: Head exam is unremarkable. Neck is without jugular venous distension. LUNGS: Lungs are clear to auscultation and percussion. Breath sounds decreased. HEART: Rate and Rhythm are regular. First and second heart sounds normal. No murmurs, rubs or gallops. ABDOMEN: Abdominal exam reveals normal bowel sounds. Non-tender and non- distended. No evidence of peritonitis. EXTREMITITES: No clubbing, cyanosis, or edema. No obvious drainage from the wounds which are wrapped. Objective - Vital Signs Vital signs: Vital Signs Temp 97.4 F L 10/12/16 07:00 Pulse 97 10/12/16 07:41 Resp 18 10/12/16 07:00 BP 107/71 10/12/16 07:00 Pulse Ox 98 10/12/16 07:31 Intake & Output 10/11/16 10/12/16 10/12/16 18:59 06:59 18:59 Intake Total 880 240 Output Total 450 Balance 430 240 Weight 162.386 kg Intake: IV 100 .9 kvo 100 Oral 780 240 Output: Urine 450 Other: Voiding Method Urinal Urinal # Voids 4 1 - Labs CBC & Chem 7: 10/11/16 03:47 10/11/16 03:47 Labs: Abnormal Lab Results - Last 24 Hours (Table) 10/11/16 10/11/16 10/12/16 Range/Units 11:07 17:26 07:20 POC Glucose (mg/dL) 260 H 125 H 72 L (75-99) mg/dL Assessment and Plan Plan: Assessment: #1. Chronic kidney disease stage IV secondary to nephrosclerosis and cardiorenal syndrome with baseline creatinine near 3.2-3.4. Appears to have progressed to end-stage renal disease. Urinalysis is completely benign without any proteinuria, hematuria, or white cells. #2. Systolic CHF with ejection fraction of 20-25%. Compensated. #3. Bilateral lower extremity wounds. #4. Insulin-dependent diabetes mellitus. #5. Atrial fibrillation with RVR maintained on beta jani. Cardiology following. Plan: Continue Lasix 40 mg IV twice daily. Check phosphorus level. Antibiotics per infectious disease recommendations - now on oral Keflex. Hold antihypertensives for systolic blood pressure less than 120. Third treatment of hemodialysis today and will be maintained on a Sunday schedule. contract administration manager on board to help facilitate outpatient hemodialysis in [place].
[2016-10-12 11:08] LABS: Anisocytosis Slight; CH 29.6; CHCM 31.4; HCT 28.8 % (39.0-53.0); HDW 3.18; HGB 9.5 gm/dL (13.0-17.5); Hypochromasia Moderate; MCH 31.4 pg (25.0-35.0); MCHC 33.1 g/dL (31.0-37.0); MCV 94.9 fL (80.0-100.0); Mean Platelet Volume 8.3; RBC 3.03 m/uL (4.30-5.90); RDW 17.3 % (11.5-15.5); WBC 8.3 k/uL (3.8-10.6)
[2016-10-12 11:12] LABS: Glucose,Whole Blood 150 mg/dL (75-99)
[2016-10-12] MEDS: METOPROLOL TARTRATE 25 MG TAB PO SCH ×2 (11:35→20:10)
[2016-10-12 11:57] LABS: Calcium 9.1 mg/dL (8.4-10.2); Phosphorous 5.1 mg/dL (2.5-4.5); Potassium 4.1 mmol/L (3.5-5.1)
--- NOTE | 2016-10-12 12:52 | PN ---
A 60-year-old has multiple medical problems and very fragile hemodynamic status, is admitted for atrial fibrillation, congestive heart failure exacerbation and patient has cardiorenal syndrome leading to end stage renal disease on hemodialysis and morbidly obese with restrictive lung disease and obesity hypoventilation syndrome and patient is also being treated for scrotal cellulitis and scrotal edema with daptomycin. Patient has multiple medical problems and patient's overall prognosis extremely poor. I had extensive discussion with the patient regarding his CODE STATUS and patient will be DO NOT RESUSCITATE after discussion with the patient after his agreement on his CODE STATUS which he is DO NOT RESUSCITATE. REVIEW OF SYSTEMS: GENITOURINARY: Continued scrotal edema and redness and swelling in the bilateral lower limbs improved, but patient went into atrial fibrillation. Patient is in atrial fibrillation with rapid ventricular rate. CARDIOVASCULAR: No chest pain, no orthopnea, no PND, no palpitations. PULMONARY: Denied any shortness of breath. No cough or hemoptysis. GASTROINTESTINAL: No diarrhea, nausea or vomiting. No abdominal pain. Normoactive bowel sounds. NEUROLOGIC: No headaches, no weakness, no numbness. Medications were reviewed. PHYSICAL EXAMINATION: Temperature 97.4, pulse of 103, respiratory rate of 18, blood pressure is 107/79, saturating at 98% on room air. EXTREMITIES: No significant change and patient continues to have scrotal edema with redness. Alert and oriented x3, morbidly obese. GENERAL: The patient is alert and oriented x3, not in any acute distress. Well developed, well nourished. HEENT: Pupils are round and equally reacting to light. EOMI. No scleral icterus. No conjunctival pallor. Normocephalic, atraumatic. No pharyngeal erythema. No thyromegaly. CARDIOVASCULAR: S1 and S2 present. No murmurs, rubs, or gallops. PULMONARY: Chest is clear to auscultation, no wheezing or crackles. ABDOMEN: Soft, nontender, nondistended, normoactive bowel sounds. No palpable organomegaly. MUSCULOSKELETAL: No joint swelling or deformity. NEUROLOGICAL: Gross neurological examination did not reveal any focal deficits. SKIN: No rashes. LABORATORY DATA: None available from today except for CBC which is fairly stable compared to yesterday. ASSESSMENT AND PLAN: 1. Acute hypoxic respiratory failure secondary to congestive heart failure exacerbation. Patient has chronic systolic dysfunction, ejection fraction of 25% with acute exacerbation. 2. Atrial fibrillation, paroxysmal with rapid ventricular rate, will continue with metoprolol and will get the opinion of Cardiology who is also following the patient. 3. Chronic obstructive pulmonary disease with acute exacerbation which improved at this point of time, that is not an issue now. 4. Extensive bilateral lower limb edema with scrotal edema leading to scrotal cellulitis for which patient is on daptomycin. 5. Diabetes mellitus type 2. Continue with present regimen and patient's blood sugars are fairly okay. Concern is hypoglycemia. I will go ahead and discontinue his Lantus as well, just go with the sliding scale insulin at this point of time. Glipizide was discontinued yesterday. 6. Severe sleep apnea. 7. Hypertension. 8. Hyperlipidemia. 9. Hypothyroidism. 10. Endstage renal disease on hemodialysis and patient has diabetic nephropathy. 11. Diabetic peripheral neuropathy. 12. Scrotal cellulitis for which patient is on daptomycin. 13. Degenerative joint disease. PLAN: As mentioned above in the interval history and assessment.
--- NOTE | 2016-10-12 13:40 | P.PN ---
Subjective This is a 60-year-old morbidly obese male who is being evaluated and examined today on the fifth floor. This patient has a history of pulmonary hypertension , cor pulmonale and chronic cellulitis of his lower extremities. Patient has a history of congestive heart failure as well. Patient is well-known to our services and has a history of obstructive sleep apnea. He does have a CPAP machine at home but he is on and off with his compliance with his machine. Patient was brought into the emergency room with a seizure associated by perianal bleeding likely from his scrotal bleeding versus a GI bleed. Patient has chronic swelling of his lower extremities and also has sores to his lower extremities. Patient's overall is a poor historian. Patient has been using his nebulizer machine and supplemental oxygen at home however his BiPAP is not being used consistently. Upon examination the patient is resting up in his chair on 3 L of supplemental oxygen. Patient states that at home he uses 2 L. Patient does complain of a cough that is nonproductive. Patient states he is feeling better, over this patient has had problems in the last 24 hours with some mild hypotension and some tachycardia. Cardiology to see patient this afternoon. Objective - Vital Signs Vital signs: Vital Signs Temp 97.4 F L 10/12/16 07:00 Pulse 98 10/12/16 11:37 Resp 18 10/12/16 08:00 BP 107/71 10/12/16 07:00 Pulse Ox 98 10/12/16 07:31 Intake & Output 10/11/16 10/12/16 10/12/16 18:59 06:59 18:59 Intake Total 880 530 Output Total 450 Balance 430 530 Weight 162.386 kg Intake: IV 100 .9 kvo 100 Intake, IV Titration 50 Amount DAPTOmycin 500 mg In 50 Sodium Chloride 0.9% 50 ml @ 100 mls/hr IV Q48H [facility] Rx#:[id number] Oral 780 480 Output: Urine 450 Other: Voiding Method Urinal Urinal Urinal # Voids 4 1 1 - Exam GENERAL EXAM: Alert, active, comfortable in no apparent distress. HEAD: Normocephalic. EYES: Normal reaction of pupils, equal size. NOSE: Clear with pink turbinates. THROAT: No erythema or exudates. Now pharyngeal opening NECK: No masses, no JVD. Neck veins prominent CHEST: No chest wall deformity. LUNGS: Equal air entry with no , wheeze, rhonchi or dullness. Few crackles at the bases. CVS: S1 and S2 normal with no audible mumurs, regular rhythm. ABDOMEN: No hepatosplenomegaly, normal bowel sounds, no guarding or rigidity. EXTREMITIES: +3 edema noted, pedal pulses palpable. Bilateral lower leg dressings in place. SKIN: No rashes CENTRAL NERVOUS SYSTEM: No focal deficits, tone is normal in all 4 extremities. - Labs CBC & Chem 7: 10/12/16 10:42 10/12/16 10:42 Labs: Abnormal Lab Results - Last 24 Hours (Table) 10/11/16 10/12/16 10/12/16 Range/Units 17:26 07:20 10:42 RBC 3.03 L (4.30-5.90) m/uL Hgb 9.5 L (13.0-17.5) gm/dL Hct 28.8 L (39.0-53.0) % RDW 17.3 H (11.5-15.5) % BUN (9-20) mg/dL Creatinine (0.66-1.25) mg/dL Glucose (74-99) mg/dL POC Glucose (mg/dL) 125 H 72 L (75-99) mg/dL Phosphorus (2.5-4.5) mg/dL 10/12/16 10/12/16 Range/Units 10:42 11:11 RBC (4.30-5.90) m/uL Hgb (13.0-17.5) gm/dL Hct (39.0-53.0) % RDW (11.5-15.5) % BUN 94 H* (9-20) mg/dL Creatinine 3.57 H (0.66-1.25) mg/dL Glucose 154 H (74-99) mg/dL POC Glucose (mg/dL) 150 H (75-99) mg/dL Phosphorus 5.1 H (2.5-4.5) mg/dL Assessment and Plan Plan: Assessment Sleep disorder breathing, sleep apnea, severe chronic obstructive sleep apnea Severe chronic obstructive pulmonary disease Acute renal failure Chronic Kidney Disease stage IV Cardiomyopathy with acute on chronic systolic and diastolic heart failure Severe pulmonary hypertension related to multifactorial processes Obesity hypoventilation syndrome Diabetes mellitus, 2 Atrial fibrillation paroxysmal with rapid ventricular rate extensive bilateral lower leg edema with scrotal edema leading to scrotal cellulitis Plan Medications have been reviewed and will be continued as ordered. We will continue with supplemental oxygen, pulmonary hygiene and supportive care. Continue with the patient's nebulizer treatments. Continue to encourage patient to use his BiPAP at night and when necessary. Patient to see cardiology today. nephrology and infectious disease on consult. We will continue to monitor labs/results and adjust treatment as necessary. I performed an examination of the patient and discussed their management with the nurse practitioner. I have reviewed the nurse practitioner's note and agree with the documented findings and plan of care.
[2016-10-12 14:20] LABS: Magnesium 2.1 mg/dL (1.6-2.3)
[2016-10-12 14:52] LABS: Hepatitis B Surface Ag Index 0.06
[2016-10-12 15:14] LABS: Hepatitis B Surface Antibody Negative (Negative)
[2016-10-12 17:05] LABS: Glucose,Whole Blood 193 mg/dL (75-99)
[2016-10-12] MEDS ORDERED: HEPARIN SODIUM,PORCINE 5,000 UNIT/ML 1 ML VIAL ONE (18:00)
[2016-10-12] MEDS: DOXEPIN 10 MG CAP PO SCH (20:06)
[2016-10-12] MEDS: INSULIN GLARGINE 100 UNIT/ML 10 ML VIAL SQ SCH (20:06)
[2016-10-12] MEDS: EDOXABAN TOSYLATE 30 MG TABLET PO SCH (20:06)
[2016-10-12] MEDS: ASPIRIN 81 MG CHEW PO SCH (20:07)
[2016-10-12 20:12] LABS: Glucose,Whole Blood 226 mg/dL (75-99)
[2016-10-13] MEDS: METHYLPHENIDATE HCL 10 MG TAB PO SCH ×3 (05:49→16:27)
[2016-10-13] MEDS: LEVOTHYROXINE 75 MCG TAB PO SCH (06:14)
[2016-10-13] MEDS: METOPROLOL TARTRATE 25 MG TAB PO SCH ×2 (07:25→21:47)
[2016-10-13 07:42] LABS: Anisocytosis Slight; Basophils % (A) 1 %; CH 30.2; CHCM 32.4; Eosinophils # (A) 0.8 k/uL (0-0.7); Eosinophils % (A) 11 %; HDW 3.37; HGB 9.2 gm/dL (13.0-17.5); Hypochromasia Slight; Luc # (Auto) 0.28; Luc % (Auto) 4; Lymphocytes # (A) 1.1 k/uL (1.0-4.8); Lymphocytes % (A) 15 %; MCH 30.9 pg (25.0-35.0); MCHC 32.9 g/dL (31.0-37.0); MCV 93.9 fL (80.0-100.0); Monocytes # (A) 0.4 k/uL (0-1.0); Monocytes % (A) 6 %; Neutrophils # (A) 4.9 k/uL (1.3-7.7); Neutrophils % (A) 65 %; RBC 2.98 m/uL (4.30-5.90); RDW 17.4 % (11.5-15.5); WBC 7.7 k/uL (3.8-10.6); WBC (Perox) 7.73
[2016-10-13 07:45] LABS: Glucose,Whole Blood 88 mg/dL (75-99)
[2016-10-13 08:02] LABS: Phosphorous 4.5 mg/dL (2.5-4.5); Potassium 4.7 mmol/L (3.5-5.1)
[2016-10-13] MEDS: ALBUTEROL NEBULIZED 2.5 MG/3 ML INHALATION SCH ×4 (08:34→19:34)
[2016-10-13] MEDS: CEPHALEXIN 500 MG CAP PO SCH ×2 (08:45→21:47)
[2016-10-13] MEDS: PREGABALIN 75 MG CAP PO SCH ×2 (08:45→21:47)
[2016-10-13] MEDS: SACUBITRIL/VALSARTAN 24 MG-26 MG TABLET PO SCH ×2 (08:45→21:47)
[2016-10-13] MEDS: PARoxetine 20 MG TAB PO SCH (08:46)
[2016-10-13] MEDS: PANTOPRAZOLE 40 MG TABLET PO SCH (08:46)
[2016-10-13] MEDS: FLUCONAZOLE 100 MG TAB PO SCH (08:46)
[2016-10-13] MEDS: ALLOPURINOL 100 MG TAB PO SCH (08:46)
[2016-10-13] MEDS: NYSTATIN 100,000UNIT/GM CREAM 30 GM TUBE TOPICAL SCH (08:48)
--- NOTE | 2016-10-13 09:12 | PN ---
DATE OF SERVICE: 10/12/2016 REASON FOR FOLLOWUP: Bilateral lower extremity wounds and cellulitis. INTERVAL HISTORY: The patient is afebrile. Has been comfortable. Denies significant chest pain. Occasional cough. No abdominal pain. No pain in the leg area. On examination, blood pressure is 150/74, pulse of 94, temperature 98, 96% on room air. GENERAL DESCRIPTION: A middle-age male up in the chair in no distress. RESPIRATORY SYSTEM: Unlabored breathing. Clear to auscultation anteriorly. HEART: S1, S2 regular rate and rhythm. EXTREMITIES: wounds dressed No change of the dressing. LABS: Hemoglobin is 9.5, white count 8.3 with a BUN of 94, creatinine is 2.57. DIAGNOSTIC IMPRESSION AND PLAN: Patient with bilateral lower extremity venostasis ulcer with secondary cellulitis. Culture showing no resistant pathogen. The patient is currently covered with Keflex. We will continue local wound care with Aquacel silver and Aftab wrap. Reevaluate the patient tomorrow. Continue supportive care. [facility]
--- NOTE | 2016-10-13 09:23 | P.PN ---
Subjective Patient is seen in follow-up for acute kidney injury on chronic kidney disease. He has progressed to end-stage renal disease and is now maintained on hemodialysis. He has undergone 3 treatments of hemodialysis so far. His oral intake is good. Denies chest pain or shortness of breath. Currently being treated for lower extremity wounds. Currently sitting up in chair. No active complaints at this time. Vital signs are stable. General: The patient appeared well nourished and normally developed. HEENT: Head exam is unremarkable. Neck is without jugular venous distension. LUNGS: Lungs are clear to auscultation and percussion. Breath sounds decreased. HEART: Rate and Rhythm are regular. First and second heart sounds normal. No murmurs, rubs or gallops. ABDOMEN: Abdominal exam reveals normal bowel sounds. Non-tender and non- distended. No evidence of peritonitis. EXTREMITITES: No clubbing, cyanosis, or edema. No obvious drainage from the wounds which are wrapped. Objective - Vital Signs Vital signs: Vital Signs Temp 97.4 F L 10/13/16 07:00 Pulse 88 10/13/16 08:34 Resp 16 10/13/16 07:00 BP 103/59 10/13/16 07:00 Pulse Ox 96 10/13/16 07:00 Intake & Output 10/12/16 10/13/16 10/13/16 18:59 06:59 18:59 Intake Total 480 480 Output Total 200 Balance 280 480 Weight 158.304 kg Intake: Oral 480 480 Output: Urine 200 Other: Voiding Method Urinal Urinal # Voids 1 - Labs CBC & Chem 7: 10/13/16 07:08 10/13/16 07:08 Labs: Abnormal Lab Results - Last 24 Hours (Table) 10/12/16 10/12/16 10/12/16 Range/Units 10:42 10:42 11:11 RBC 3.03 L (4.30-5.90) m/uL Hgb 9.5 L (13.0-17.5) gm/dL Hct 28.8 L (39.0-53.0) % RDW 17.3 H (11.5-15.5) % Plt Count (150-450) k/uL Eosinophils # (0-0.7) k/uL BUN 94 H* (9-20) mg/dL Creatinine 3.57 H (0.66-1.25) mg/dL Glucose 154 H (74-99) mg/dL POC Glucose (mg/dL) 150 H (75-99) mg/dL Phosphorus 5.1 H (2.5-4.5) mg/dL 10/12/16 10/12/16 10/13/16 Range/Units 16:59 20:00 07:08 RBC 2.98 L (4.30-5.90) m/uL Hgb 9.2 L (13.0-17.5) gm/dL Hct 28.0 L (39.0-53.0) % RDW 17.4 H (11.5-15.5) % Plt Count 149 L (150-450) k/uL Eosinophils # 0.8 H (0-0.7) k/uL BUN (9-20) mg/dL Creatinine (0.66-1.25) mg/dL Glucose (74-99) mg/dL POC Glucose (mg/dL) 193 H 226 H (75-99) mg/dL Phosphorus (2.5-4.5) mg/dL 10/13/16 Range/Units 07:08 RBC (4.30-5.90) m/uL Hgb (13.0-17.5) gm/dL Hct (39.0-53.0) % RDW (11.5-15.5) % Plt Count (150-450) k/uL Eosinophils # (0-0.7) k/uL BUN 72 H (9-20) mg/dL Creatinine 3.37 H (0.66-1.25) mg/dL Glucose 66 L (74-99) mg/dL POC Glucose (mg/dL) (75-99) mg/dL Phosphorus (2.5-4.5) mg/dL Assessment and Plan Plan: Assessment: #1. Chronic kidney disease stage IV secondary to nephrosclerosis and cardiorenal syndrome with baseline creatinine near 3.2-3.4. Appears to have progressed to end-stage renal disease. Urinalysis is completely benign without any proteinuria, hematuria, or white cells. #2. Systolic CHF with ejection fraction of 20-25%. Compensated. #3. Bilateral lower extremity wounds. #4. Insulin-dependent diabetes mellitus. #5. Atrial fibrillation with RVR maintained on beta jani. Cardiology following. Plan: I will change his diuretics to 80 mg orally twice daily. Antibiotics per infectious disease recommendations - now on oral Keflex. Hold antihypertensives for systolic blood pressure less than 120. He'll now be maintained on a Sunday schedule in terms of hemodialysis. Outpatient dialysis has been set up in [place] with me on second shift Sunday schedule.
[2016-10-13] MEDS ORDERED: HEPARIN SODIUM,PORCINE 5,000 UNIT/ML 1 ML VIAL ONE (10:30)
[2016-10-13] MEDS: FUROSEMIDE 10 MG/ML 4 ML VIAL IV SCH (10:39)
[2016-10-13 10:47] LABS: % Iron Saturation 13.9 % (20-50)
[2016-10-13 11:46] VITALS: BMI 53.0
[2016-10-13 12:00] LABS: Glucose,Whole Blood 212 mg/dL (75-99)
--- NOTE | 2016-10-13 12:47 | PN ---
A 60-year-old admitted for congestive heart failure exacerbation and patient has cardiorenal syndrome endstage renal disease secondary to that. REVIEW OF SYSTEMS: CARDIOVASCULAR: No chest pain, no orthopnea, no PND, no palpitations. PULMONARY: Denied any shortness of breath. No cough or hemoptysis. GASTROINTESTINAL: No diarrhea, nausea or vomiting. No abdominal pain. Normoactive bowel sounds. NEUROLOGIC: No headaches, no weakness, no numbness. GENITOURINARY: Continued scrotal edema, which has improved. Pedal edema improved. Medications were reviewed. Medication changes, patient's Lasix was changed to oral Lasix. PHYSICAL EXAMINATION: VITAL SIGNS: Temperature 97.4, pulse of 90, respiratory rate of 16, blood pressure is 103/69, saturating at 96% on 2 L of O2 by nasal cannula. GENERAL EXAMINATION: Morbidly obese. Alert and oriented x3. HEENT: Pupils are round and equally reacting to light. EOMI. No scleral icterus. No conjunctival pallor. Normocephalic, atraumatic. No pharyngeal erythema. No thyromegaly. CARDIOVASCULAR: S1 and S2 present. No murmurs, rubs, or gallops. PULMONARY: Chest is clear to auscultation, no wheezing or crackles. ABDOMEN: Soft, nontender, nondistended, normoactive bowel sounds. No palpable organomegaly. MUSCULOSKELETAL: No joint swelling or deformity. NEUROLOGICAL: Gross neurological examination did not reveal any focal deficits. SKIN: No rashes. EXTREMITIES: Patient still has 2+ pitting pedal edema which is significantly improved. Improved leg swelling and everything improved. LABORATORY DATA: CBC, CMP are abnormal for elevated BUN and creatinine of 72 and 3.37, both of which are significantly improved compared to a couple days ago. ASSESSMENT AND PLAN: 1. Acute hypoxic respiratory failure secondary to congestive heart failure, chronic systolic dysfunction with acute exacerbation. 2. Paroxysmal in atrial fibrillation, continued rapid ventricular rate. Will continue to monitor and this is probably due to hypoxemia which is expected to improve. 3. Chronic obstructive pulmonary disease with any significant acute exacerbation at this point of time. 4. Extensive bilateral lower limb edema along with scrotal edema leading to scrotal cellulitis for which patient was on daptomycin, now switched to Keflex. 5. Severe sleep apnea. 6. Hypertension. 7. Hyperlipidemia. 8. Hypothyroidism. 9. Endstage renal disease, probably cardiorenal syndrome with complement of diabetic nephropathy, on hemodialysis. 10. Diabetic peripheral neuropathy. 11. Degenerative joint disease.
--- NOTE | 2016-10-13 17:01 | PN ---
DATE OF SERVICE: 10/13/2016 Reason for follow up is bilateral lower extremity venostasis ulcer and cellulitis. INTERVAL HISTORY: The patient is afebrile. He is currently breathing comfortably and has significant chest pain or cough. No abdominal pain or any worsening pain in the flank area. On examination, blood pressure is 103/59 with a pulse of 88, temperature 97.4. He is 97% on room air. General description is a middle aged male up in the chair in no distress. RESPIRATORY SYSTEM: Unlabored breathing. Clear to auscultation. HEART: S1, S2. Regular rate and rhythm. ABDOMEN: Soft. No tenderness. Lower extremity is currently wrapped up. No obvious drainage on the dressing. LABS: Hemoglobin 9.1, white count 7.7, BUN of 72 with a creatinine 3.79. DIAGNOSTIC IMPRESSION AND PLAN: Patient with bilateral lower extremity venostasis ulcer and secondary cellulitis. Plan at this time is to finish therapy with oral Keflex along with the Aquacel Silver dressing and Aftab wrap on the leg. Continue supportive care.
[2016-10-13] MEDS: FUROSEMIDE 80 MG TAB PO SCH (17:07)
[2016-10-13 17:26] LABS: Glucose,Whole Blood 202 mg/dL (75-99)
--- NOTE | 2016-10-13 20:26 | PN ---
This patient is a 60-year-old male, seen, evaluated, examined on the fifth floor. Patient is somnolent but readily arousable. He still has issues associated with using the BiPAP machine. He has extensive edema in the lower extremities. Patient has been tolerating dialysis relatively well. Last set of vitals shows blood pressure 110/60, respiratory rate 18, pulse 99, temperature 98, saturation 98% on 2 L oxygen. HEENT EXAMINATION: Otherwise unremarkable. Hematoma bruising on the right side has significantly improved and resolved. NECK: Supple without lymphadenopathy. LUNGS: Bilateral good air entry, upper part. Decreased air entry at the bases. HEART: Regular rate, rhythm. S1, S2 audible. ABDOMEN: Soft. EXTREMITIES: Plus three chronic edema. Medications reviewed. Laboratory data reviewed as well. The last set of laboratory data revealed white cell count 7700, hemoglobin 9.2, hematocrit 28, platelet count 149,000. Sodium 140, potassium 4.7. BUN and creatinine 72 and 3.37, which continue to improve. Glucose 202. IMPRESSION: 1. Obesity hypoventilation syndrome associated with acute on chronic hypoxic respiratory failure. 2. Acute exacerbation of congestive heart failure associated with chronic systolic heart failure. 3. Chronic paroxysmal atrial fibrillation. 4. Severe chronic obstructive pulmonary disease, emphysema. 5. Obesity hypoventilation. 6. Severe sleep apnea. 7. Dyslipidemia. PLAN: As above. Continue BiPAP as tolerated. Continue hemodialysis. Continue to remove fluid as tolerated. Maintain patient on DVT and peptic ulcer disease prophylaxis. Patient has been asked to continue deep breathing exercises. Noted that patient's antibiotics are being adjusted now, being switched to oral. Will follow.
[2016-10-13] MEDS ORDERED: ZOLPIDEM 5 MG TAB PO PRN (21:00)
[2016-10-13] MEDS: DOXEPIN 10 MG CAP PO SCH (21:47)
[2016-10-13] MEDS: ASPIRIN 81 MG CHEW PO SCH (21:47)
[2016-10-13] MEDS: EDOXABAN TOSYLATE 30 MG TABLET PO SCH (21:47)
[2016-10-13] MEDS: INSULIN GLARGINE 100 UNIT/ML 10 ML VIAL SQ SCH (21:47)
[2016-10-13 21:50] LABS: Glucose,Whole Blood 176 mg/dL (75-99)
[2016-10-14] MEDS: NYSTATIN 100,000UNIT/GM CREAM 30 GM TUBE TOPICAL SCH ×3 (00:34→22:54)
[2016-10-14] MEDS: METHYLPHENIDATE HCL 10 MG TAB PO SCH ×2 (05:33→16:10)
[2016-10-14] MEDS: LEVOTHYROXINE 75 MCG TAB PO SCH (06:16)
[2016-10-14] MEDS: ALBUTEROL NEBULIZED 2.5 MG/3 ML INHALATION SCH ×4 (07:24→19:26)
[2016-10-14 07:47] LABS: Glucose,Whole Blood 121 mg/dL (75-99)
[2016-10-14 08:20] LABS: Anisocytosis Slight; Basophils % (A) 0 %; CH 30.4; Eosinophils # (A) 1.3 k/uL (0-0.7); Eosinophils % (A) 14 %; HCT 28.3 % (39.0-53.0); HDW 3.39; HGB 9.5 gm/dL (13.0-17.5); Hypochromasia Slight; Luc # (Auto) 0.34; Luc % (Auto) 4; Lymphocytes # (A) 1.4 k/uL (1.0-4.8); Lymphocytes % (A) 15 %; MCH 31.3 pg (25.0-35.0); MCHC 33.7 g/dL (31.0-37.0); MCV 92.7 fL (80.0-100.0); Mean Platelet Volume 7.9; Monocytes # (A) 0.5 k/uL (0-1.0); Monocytes % (A) 6 %; Neutrophils # (A) 5.4 k/uL (1.3-7.7); Neutrophils % (A) 61 %; RBC 3.05 m/uL (4.30-5.90); RDW 17.5 % (11.5-15.5); WBC 8.9 k/uL (3.8-10.6); WBC (Perox) 8.74
[2016-10-14 08:44] LABS: Calcium 9.1 mg/dL (8.4-10.2); Magnesium 2.1 mg/dL (1.6-2.3); Potassium 5.3 mmol/L (3.5-5.1)
[2016-10-14] MEDS: FUROSEMIDE 80 MG TAB PO SCH ×2 (09:32→16:10)
[2016-10-14] MEDS: FLUCONAZOLE 100 MG TAB PO SCH (09:32)
[2016-10-14] MEDS: METOPROLOL TARTRATE 25 MG TAB PO SCH ×2 (09:32→22:54)
[2016-10-14] MEDS: CEPHALEXIN 500 MG CAP PO SCH ×2 (09:32→22:53)
[2016-10-14] MEDS: PARoxetine 20 MG TAB PO SCH (09:33)
[2016-10-14] MEDS: ALLOPURINOL 100 MG TAB PO SCH (09:33)
[2016-10-14] MEDS: SACUBITRIL/VALSARTAN 24 MG-26 MG TABLET PO SCH ×2 (09:35→22:53)
[2016-10-14] MEDS: PANTOPRAZOLE 40 MG TABLET PO SCH (09:35)
[2016-10-14] MEDS: PREGABALIN 75 MG CAP PO SCH ×2 (09:43→22:53)
--- NOTE | 2016-10-14 10:04 | P.PN ---
Subjective Principal diagnosis: This is a 60-year-old male with new hemodialysis dependent acute kidney injury secondary to cardiorenal syndrome and background of chronic kidney disease. He has been on dialysis 3 times starting 10/10/2016, 426 and 10/12/2016. He has been ultrafiltrate only about 700 mL and 800 mL and none last time. Blood pressures were in the 80s to 90s during dialysis. After the 3 dialysis he says he is feeling better less short of breath. Has a good appetite. Does not like the food. He has profound weakness though. He is morbidly obese. He has an ejection fraction of 20-25%, type 2 diabetes, obstructive sleep apnea narcolepsy spinal stenosis. He has both legs in Aftab wraps and complains of pain in both legs requiring narcotics. Objective - Vital Signs Vital signs: Vital Signs Temp 97 F L 10/14/16 07:00 Pulse 100 10/14/16 07:31 Resp 20 10/14/16 07:00 BP 113/59 10/14/16 07:00 Pulse Ox 96 10/14/16 07:00 Intake & Output 10/13/16 10/14/16 10/14/16 18:59 06:59 18:59 Intake Total 480 Output Total 200 Balance 280 Weight 158.304 kg 162.976 kg Intake: Oral 480 Output: Urine 200 Other: Voiding Method Urinal Toilet # Voids 2 1 Currently on exam he is awake alert oriented sitting in chair. HEENT exam no JVP noted neck is supple no facial asymmetry Lungs are clear to auscultation and fair air entry normal to percussion. Heart sounds are unremarkable for any murmur rub gallop. Abdomen is obese somewhat difficult to examine but non-tender Extremity exam reveals mild edema. Neurologically awake alert oriented but generalized weakness. No focal motor deficit. - Labs CBC & Chem 7: 10/14/16 07:39 10/14/16 07:39 Labs: Abnormal Lab Results - Last 24 Hours (Table) 10/13/16 10/13/16 10/13/16 Range/Units 07:08 11:47 17:12 RBC (4.30-5.90) m/uL Hgb (13.0-17.5) gm/dL Hct (39.0-53.0) % RDW (11.5-15.5) % Plt Count (150-450) k/uL Eosinophils # (0-0.7) k/uL Potassium (3.5-5.1) mmol/L BUN (9-20) mg/dL Creatinine (0.66-1.25) mg/dL Glucose (74-99) mg/dL POC Glucose (mg/dL) 212 H 202 H (75-99) mg/dL Phosphorus (2.5-4.5) mg/dL Iron 41 L (49-181) ug/dL % Saturation 13.9 L (20-50) % 10/13/16 10/14/16 10/14/16 Range/Units 21:30 07:29 07:39 RBC 3.05 L (4.30-5.90) m/uL Hgb 9.5 L (13.0-17.5) gm/dL Hct 28.3 L (39.0-53.0) % RDW 17.5 H (11.5-15.5) % Plt Count 138 L (150-450) k/uL Eosinophils # 1.3 H (0-0.7) k/uL Potassium (3.5-5.1) mmol/L BUN (9-20) mg/dL Creatinine (0.66-1.25) mg/dL Glucose (74-99) mg/dL POC Glucose (mg/dL) 176 H 121 H (75-99) mg/dL Phosphorus (2.5-4.5) mg/dL Iron (49-181) ug/dL % Saturation (20-50) % 10/14/16 Range/Units 07:39 RBC (4.30-5.90) m/uL Hgb (13.0-17.5) gm/dL Hct (39.0-53.0) % RDW (11.5-15.5) % Plt Count (150-450) k/uL Eosinophils # (0-0.7) k/uL Potassium 5.3 H (3.5-5.1) mmol/L BUN 89 H* (9-20) mg/dL Creatinine 3.56 H (0.66-1.25) mg/dL Glucose 125 H (74-99) mg/dL POC Glucose (mg/dL) (75-99) mg/dL Phosphorus 5.0 H (2.5-4.5) mg/dL Iron (49-181) ug/dL % Saturation (20-50) % Assessment and Plan Plan: Impression. 1. New ESRD with chronic kidney disease and cardiorenal syndrome with acute kidney injury. Dialysis started 10/10/2016 with a permacath. Very minimal ultrafiltration done so far less than a liter first 2 treatments. Volume status is slightly volume overloaded with mild edema. Clear lungs to. 2. Chronic kidney disease stage IV secondary to nephrosclerosis. 3. Cardiorenal syndrome. 4. Cardiomyopathy ejection fraction 20-25%. 5. Bilateral lower extremity Aftab wraps with wounds and mild edema. 6. Diabetes mellitus with competitions. 7. Atrial fibrillation with controlled ventricular response. 8. Anemia off ESRD. 9. Iron deficiency with saturation 13.9% dated Plan-. We will dialyze today and takeoff 1 L. 2. IV Ferrlecit 125 mg 1 dose. 3. Will watch blood pressure, orthostatic changes,. 4. Watch hemoglobin and may need darbepoetin but we'll wait until the IV iron is given and and may respond without the need for darbepoetin
[2016-10-14] MEDS ORDERED: SODIUM FERRIC GLUCONAT-SUCROSE 125 MG in SODIUM CHLORIDE 0.9% 100 ML IVPB ONE (11:00)
[2016-10-14 12:10] LABS: Glucose,Whole Blood 217 mg/dL (75-99)
--- NOTE | 2016-10-14 13:37 | PN ---
Patient has slight and slow improvement compared to yesterday. REVIEW OF SYSTEMS: CARDIOVASCULAR: No chest pain, no orthopnea, no PND, no palpitations. PULMONARY: Denied any shortness of breath. No cough or hemoptysis. GASTROINTESTINAL: No diarrhea, nausea or vomiting. No abdominal pain. Normoactive bowel sounds. GENITOURINARY: Continued scrotal edema, improved, and pedal edema, which is also improved. NEUROLOGIC: No headaches, no weakness, no numbness. Medications were reviewed. No changes are being made today. PHYSICAL EXAMINATION: VITAL SIGNS: Temperature 97.0, pulse of 100, fairly controlled heart rate at this point of time. Respiratory rate of 20. Blood pressure is 113/59. Saturating at 96% on room air. GENERAL: Morbidly obese. Alert and oriented x3. HEENT: Pupils are round and equally reacting to light. EOMI. No scleral icterus. No conjunctival pallor. Normocephalic, atraumatic. No pharyngeal erythema. No thyromegaly. CARDIOVASCULAR: S1 and S2 present. No murmurs, rubs, or gallops. PULMONARY: Chest is clear to auscultation, no wheezing or crackles. ABDOMEN: Soft, nontender, nondistended, normoactive bowel sounds. No palpable organomegaly. MUSCULOSKELETAL: No joint swelling or deformity. EXTREMITIES: Improving pedal edema. Improving scrotal edema and redness. NEUROLOGICAL: Gross neurological examination did not reveal any focal deficits. SKIN: No rashes. LABORATORY DATA: CBC, CMP are abnormal for elevated potassium of 5.3. Patient will receive hemodialysis today. BUN of 89, creatinine of 3.56. ASSESSMENT AND PLAN: 1. Acute hypoxic respiratory failure secondary to congestive heart failure, chronic systolic dysfunction with acute exacerbation. Patient has EF of around 25%. 2. Paroxysmal atrial fibrillation, fairly rate-controlled at this point of time. 3. Chronic obstructive pulmonary disease without any significant exacerbation. 4. Extensive bilateral lower limb edema and scrotal edema with scrotal cellulitis. Patient is on Keflex at this point of time. 5. Sleep apnea. 6. Hypertension. 7. Hyperlipidemia. 8. Hypothyroidism. 9. End-stage renal disease, probably cardiorenal syndrome with a component of diabetic nephropathy. Patient is on hemodialysis. 10. Hyperkalemia secondary to end-stage renal disease. Patient is on hemodialysis. 11. Diabetic peripheral neuropathy. 12. Degenerative joint disease.
--- NOTE | 2016-10-14 13:55 | P.PN ---
Subjective Principal diagnosis: Cardiorenal syndrome Patient seen and examined covering for Dr. Baeza. The patient is sitting up in the chair eating lunch. He states that he does have known obstructive sleep apnea but does not wear his CPAP because his mask doesn't fit. The importance of obtaining on new mask that fits and wearing his CPAP nightly is expressed to the patient he is willing to try to wear CPAP while he is here in the hospital. He states hemodialysis has been going well. He has no issues or concerns at this time. Objective - Vital Signs Vital signs: Vital Signs Temp 97 F L 10/14/16 07:00 Pulse 96 10/14/16 12:10 Resp 20 10/14/16 07:00 BP 113/59 10/14/16 07:00 Pulse Ox 96 10/14/16 07:00 Intake & Output 10/13/16 10/14/16 10/14/16 18:59 06:59 18:59 Intake Total 480 Output Total 200 Balance 280 Weight 158.304 kg 162.976 kg Intake: Oral 480 Output: Urine 200 Other: Voiding Method Urinal Toilet Toilet # Voids 2 1 - Exam Gen.: Patient is alert and oriented 3, no acute distress, morbidly obese Cardiovascular: Regular rate and rhythm, S1/S2 Lungs: Diminished breath sounds bilaterally otherwise clear Abdomen: Soft nontender nondistended positive bowel sounds Extremities: + Edema, Aftab bandage wrapping in place - Labs CBC & Chem 7: 10/14/16 07:39 10/14/16 07:39 Labs: Abnormal Lab Results - Last 24 Hours (Table) 10/13/16 10/13/16 10/14/16 Range/Units 17:12 21:30 07:29 RBC (4.30-5.90) m/uL Hgb (13.0-17.5) gm/dL Hct (39.0-53.0) % RDW (11.5-15.5) % Plt Count (150-450) k/uL Eosinophils # (0-0.7) k/uL Potassium (3.5-5.1) mmol/L BUN (9-20) mg/dL Creatinine (0.66-1.25) mg/dL Glucose (74-99) mg/dL POC Glucose (mg/dL) 202 H 176 H 121 H (75-99) mg/dL Phosphorus (2.5-4.5) mg/dL 10/14/16 10/14/16 10/14/16 Range/Units 07:39 07:39 12:06 RBC 3.05 L (4.30-5.90) m/uL Hgb 9.5 L (13.0-17.5) gm/dL Hct 28.3 L (39.0-53.0) % RDW 17.5 H (11.5-15.5) % Plt Count 138 L (150-450) k/uL Eosinophils # 1.3 H (0-0.7) k/uL Potassium 5.3 H (3.5-5.1) mmol/L BUN 89 H* (9-20) mg/dL Creatinine 3.56 H (0.66-1.25) mg/dL Glucose 125 H (74-99) mg/dL POC Glucose (mg/dL) 217 H (75-99) mg/dL Phosphorus 5.0 H (2.5-4.5) mg/dL Assessment and Plan Plan: ALLA/OHS with acute on chronic hypoxic respiratory failure Acute exacerbation of systolic congestive heart failure, ejection fraction 20-25 % Cardiorenal syndrome New onset end-stage renal disease requiring hemodialysis Chronic paroxysmal atrial fibrillation Severe COPD and emphysema Super morbid obesity Chronic kidney disease stage 4-5, secondary to nephrosclerosis Diabetes mellitus type 2 Anemia Volume overload Hypertension Dyslipidemia Hypothyroidism Mild hyperkalemia Diabetic peripheral neuropathy Will try patient on CPAP while he is here. Hemodialysis per nephrology Fluid removal as blood pressure tolerates GI and DVT prophylaxis Incentive spirometry and pulmonary hygiene Antibiotics per ID Bronchodilators Patient to follow up with Dr. Baeza after admission to assess home CPAP and mask situation.
[2016-10-14 17:22] LABS: Glucose,Whole Blood 193 mg/dL (75-99)
[2016-10-14 20:53] LABS: Glucose,Whole Blood 158 mg/dL (75-99)
[2016-10-14] MEDS: DOXEPIN 10 MG CAP PO SCH (22:53)
[2016-10-14] MEDS: ASPIRIN 81 MG CHEW PO SCH (22:53)
[2016-10-14] MEDS: EDOXABAN TOSYLATE 30 MG TABLET PO SCH (22:54)
[2016-10-14] MEDS: INSULIN GLARGINE 100 UNIT/ML 10 ML VIAL SQ SCH (22:54)
[2016-10-15] MEDS: METHYLPHENIDATE HCL 10 MG TAB PO SCH ×2 (05:10→15:00)
[2016-10-15] MEDS: LEVOTHYROXINE 75 MCG TAB PO SCH (06:26)
[2016-10-15] MEDS: PARoxetine 20 MG TAB PO SCH (07:24)
[2016-10-15 07:41] LABS: Glucose,Whole Blood 120 mg/dL (75-99)
[2016-10-15 07:56] LABS: Anisocytosis Slight; Basophils # (A) 0.1 k/uL (0-0.2); Basophils % (A) 1 %; CH 29.8; CHCM 31.6; Eosinophils # (A) 1.5 k/uL (0-0.7); Eosinophils % (A) 17 %; HCT 28.9 % (39.0-53.0); HDW 3.28; Hypochromasia Moderate; Luc # (Auto) 0.27; Luc % (Auto) 3; Lymphocytes # (A) 1.4 k/uL (1.0-4.8); Lymphocytes % (A) 16 %; MCH 29.6 pg (25.0-35.0); MCHC 31.2 g/dL (31.0-37.0); MCV 94.8 fL (80.0-100.0); Mean Platelet Volume 7.9; Monocytes # (A) 0.5 k/uL (0-1.0); Monocytes % (A) 6 %; Neutrophils % (A) 58 %; RBC 3.05 m/uL (4.30-5.90); RDW 17.6 % (11.5-15.5); WBC 8.7 k/uL (3.8-10.6); WBC (Perox) 9.22
[2016-10-15 08:29] LABS: Magnesium 1.9 mg/dL (1.6-2.3); Phosphorous 4.4 mg/dL (2.5-4.5); Potassium 4.4 mmol/L (3.5-5.1)
[2016-10-15] MEDS: ALBUTEROL NEBULIZED 2.5 MG/3 ML INHALATION SCH ×4 (08:29→19:43)
[2016-10-15] MEDS: CEPHALEXIN 500 MG CAP PO SCH ×2 (09:13→21:28)
[2016-10-15] MEDS: ALLOPURINOL 100 MG TAB PO SCH (09:13)
[2016-10-15] MEDS: NYSTATIN 100,000UNIT/GM CREAM 30 GM TUBE TOPICAL SCH ×2 (09:14→21:29)
[2016-10-15] MEDS: FLUCONAZOLE 100 MG TAB PO SCH (09:14)
[2016-10-15] MEDS: FUROSEMIDE 80 MG TAB PO SCH ×2 (09:14→16:19)
[2016-10-15] MEDS: PANTOPRAZOLE 40 MG TABLET PO SCH (09:15)
[2016-10-15] MEDS: METOPROLOL TARTRATE 25 MG TAB PO SCH ×3 (09:15→21:35)
[2016-10-15] MEDS: SACUBITRIL/VALSARTAN 24 MG-26 MG TABLET PO SCH ×2 (09:16→21:28)
[2016-10-15] MEDS: PREGABALIN 75 MG CAP PO SCH ×2 (09:27→21:27)
[2016-10-15] MEDS: ASPIRIN 81 MG CHEW PO SCH (09:29)
--- NOTE | 2016-10-15 10:25 | PN ---
The patient appears to be doing good overall but patient is bleeding from the dialysis catheter site. We will get Dr. Huitron from vascular surgery to evaluate. REVIEW OF SYSTEMS: CARDIOVASCULAR: No chest pain, no orthopnea, no PND, no palpitations. PULMONARY: Denied any shortness of breath. No cough or hemoptysis. GASTROINTESTINAL: No diarrhea, nausea or vomiting. No abdominal pain. Normoactive bowel sounds. NEUROLOGIC: No headaches, no weakness, no numbness. Medications are reviewed. PHYSICAL EXAMINATION: VITAL SIGNS: Temperature 97.6, pulse 86, respiratory rate of 16, blood pressure 91/44, saturating at 98% on room air. GENERAL: The patient is alert and oriented x3, not in any acute distress. Well developed, well nourished. HEENT: Pupils are round and equally reacting to light. EOMI. No scleral icterus. No conjunctival pallor. Normocephalic, atraumatic. No pharyngeal erythema. No thyromegaly. CARDIOVASCULAR: S1 and S2 present. No murmurs, rubs, or gallops. PULMONARY: Chest is clear to auscultation, no wheezing or crackles. ABDOMEN: Soft, nontender, nondistended, normoactive bowel sounds. No palpable organomegaly. MUSCULOSKELETAL: No joint swelling or deformity. EXTREMITIES: Improved pedal edema improved. Improved edema and redness of the scrotum. Patient dialysis site is bleeding. NEUROLOGICAL: Gross neurological examination did not reveal any focal deficits. SKIN: No rashes. LABORATORY DATA: CBC BMP are abnormal for elevated BUN and creatinine which is an improvement from yesterday. Hemoglobin minimal drop from 9.5 to 9. ASSESSMENT AND PLAN: 1. ( ) acute hypoxic respiratory failure, secondary to congestive heart failure, chronic systolic dysfunction with acute exacerbation. 2. Paroxysmal atrial fibrillation fairly rate -controlled. 3. Chronic obstructive pulmonary disease without any significant exacerbation. 4. Extensive bilateral lower limb edema with scrotal edema and scrotal cellulitis. Continue with Keflex. 5. Sleep apnea. 6. Hypertension. 7. Hyperlipidemia. 8. Hypothyroidism. 9. End stage renal disease secondary to cardiorenal syndrome with a component of diabetic nephropathy. 10. Hyperlipidemia. 11. Diabetic peripheral neuropathy. PLAN: Continue present medications. Evaluation by Dr. Huitron. Possibility of discharge to subacute rehabilitation tomorrow.
[2016-10-15 11:54] LABS: Glucose,Whole Blood 164 mg/dL (75-99)
--- NOTE | 2016-10-15 12:34 | P.PN ---
Subjective Principal diagnosis: This is a 60-year-old male with new hemodialysis dependent acute kidney injury secondary to cardiorenal syndrome and background of chronic kidney disease. He has been dialyzed starting 10/10/2016, 426 and 10/12/2016, and last dialysis was yesterday 10/14/2016, and a ultrafiltration of 1 L was accomplished with blood pressure in the 110 range.. previouslyHe has been ultrafiltrate only about 700 mL and 800 mL and none on . Blood pressures were in the 80s to 90s during dialysis. After the 4 dialysis he says he is feeling better less short of breath. Has a good appetite. Does not like the food. He has profound weakness though. He is morbidly obese. He has an ejection fraction of 20-25%, type 2 diabetes, obstructive sleep apnea narcolepsy spinal stenosis. He has both legs in Aftab wraps and complains of pain in both legs requiring narcotics. Objective - Vital Signs Vital signs: Vital Signs Temp 97.6 F 10/15/16 07:00 Pulse 86 10/15/16 08:00 Resp 16 10/15/16 08:00 BP 91/44 10/15/16 07:00 Pulse Ox 98 10/15/16 07:00 Intake & Output 10/14/16 10/15/16 10/15/16 18:59 06:59 18:59 Intake Total 500 Balance 500 Weight 160.39 kg Intake: IV 100 Sodium Ferric Gluconat- 100 Sucrose 125 mg In Sodium Chloride 0.9% 100 ml @ 100 mls/hr IVPB ONCE ONE Rx#:[id number] Oral 400 Other: Voiding Method Toilet Toilet Toilet # Voids 3 1 on examination is awake alert oriented. Is on nasal cannula oxygen. HEENT exam no JVP, lymphadenopathy neck is supple graft lungs are clear to auscultation and percussion. Heart sounds are unremarkable for any murmur rub gallop. Abdomen is obese difficult to examine. Nontender. Extremity examination reveals bilateral Aftab wraps legs. Neurologically awake alert oriented generalized weakness. No focal motor deficit. He has a bandage on his permacath site of recent surgery, the bandages are dry at this time. - Labs CBC & Chem 7: 10/15/16 07:22 10/15/16 07:22 Labs: Abnormal Lab Results - Last 24 Hours (Table) 10/14/16 10/14/16 10/15/16 Range/Units 17:17 20:33 07:22 RBC 3.05 L (4.30-5.90) m/uL Hgb 9.0 L (13.0-17.5) gm/dL Hct 28.9 L (39.0-53.0) % RDW 17.6 H (11.5-15.5) % Eosinophils # 1.5 H (0-0.7) k/uL BUN (9-20) mg/dL Creatinine (0.66-1.25) mg/dL Glucose (74-99) mg/dL POC Glucose (mg/dL) 193 H 158 H (75-99) mg/dL 10/15/16 10/15/16 10/15/16 Range/Units 07:22 07:24 11:51 RBC (4.30-5.90) m/uL Hgb (13.0-17.5) gm/dL Hct (39.0-53.0) % RDW (11.5-15.5) % Eosinophils # (0-0.7) k/uL BUN 53 H (9-20) mg/dL Creatinine 2.86 H (0.66-1.25) mg/dL Glucose 127 H (74-99) mg/dL POC Glucose (mg/dL) 120 H 164 H (75-99) mg/dL Assessment and Plan Plan: Impression. 1. New ESRD with chronic kidney disease and cardiorenal syndrome with acute kidney injury. Dialysis started 10/10/2016 with a permacath. Very minimal ultrafiltration done so far less than a liter first 4 treatments, because of hypotension. Volume status is slightly volume overloaded with mild edema. Clear lungs, edema improved, last hemodialysis yesterday 10/14/2016 able to withstand 1 L with blood pressure actually somewhat better in the 110 range. 2. Chronic kidney disease stage IV secondary to nephrosclerosis. 3. Cardiorenal syndrome. 4. Cardiomyopathy ejection fraction 20-25%. 5. Bilateral lower extremity Aftab wraps with wounds and mild edema. 6. Diabetes mellitus with competitions. 7. Atrial fibrillation with controlled ventricular response. 8. Anemia off ESRD. 9. Iron deficiency with saturation 13.9% dated ,IV Ferrlecit 125 mg 1 dose given 10/14/2016. Plan-. 1.we will put him on aTsunday schedule. 2. Will watch blood pressure, orthostatic changes,. 4. Watch hemoglobin and may need darbepoetin but we'll wait until the IV iron is given and and may respond without the need for darbepoetin
--- NOTE | 2016-10-15 14:20 | P.PN ---
Subjective Principal diagnosis: Cardiorenal syndrome Patient seen and examined covering for Dr. Baeza. The patient is sitting up in his chair eating lunch. He states he feels really good today. He is hoping to go home soon. The patient states he did not wear CPAP overnight. It was brought into his room and then removed. He is unsure why. He will follow up in the office to resume his CPAP use. Objective - Vital Signs Vital signs: Vital Signs Temp 97.6 F 10/15/16 07:00 Pulse 86 10/15/16 08:00 Resp 16 10/15/16 08:00 BP 91/44 10/15/16 07:00 Pulse Ox 98 10/15/16 07:00 Intake & Output 10/14/16 10/15/16 10/15/16 18:59 06:59 18:59 Intake Total 500 Balance 500 Weight 160.39 kg Intake: IV 100 Sodium Ferric Gluconat- 100 Sucrose 125 mg In Sodium Chloride 0.9% 100 ml @ 100 mls/hr IVPB ONCE ONE Rx#:[id number] Oral 400 Other: Voiding Method Toilet Toilet Toilet # Voids 3 1 - Exam Gen.: Patient is alert and oriented 3, no acute distress, morbidly obese Cardiovascular: Regular rate and rhythm, S1/S2 Lungs: Diminished breath sounds bilaterally otherwise clear Abdomen: Soft nontender nondistended positive bowel sounds Extremities: + Edema, Aftab bandage wrapping in place - Labs CBC & Chem 7: 10/15/16 07:22 10/15/16 07:22 Labs: Abnormal Lab Results - Last 24 Hours (Table) 10/14/16 10/14/16 10/15/16 Range/Units 17:17 20:33 07:22 RBC 3.05 L (4.30-5.90) m/uL Hgb 9.0 L (13.0-17.5) gm/dL Hct 28.9 L (39.0-53.0) % RDW 17.6 H (11.5-15.5) % Eosinophils # 1.5 H (0-0.7) k/uL BUN (9-20) mg/dL Creatinine (0.66-1.25) mg/dL Glucose (74-99) mg/dL POC Glucose (mg/dL) 193 H 158 H (75-99) mg/dL 10/15/16 10/15/16 10/15/16 Range/Units 07:22 07:24 11:51 RBC (4.30-5.90) m/uL Hgb (13.0-17.5) gm/dL Hct (39.0-53.0) % RDW (11.5-15.5) % Eosinophils # (0-0.7) k/uL BUN 53 H (9-20) mg/dL Creatinine 2.86 H (0.66-1.25) mg/dL Glucose 127 H (74-99) mg/dL POC Glucose (mg/dL) 120 H 164 H (75-99) mg/dL Assessment and Plan Plan: ALLA/OHS with acute on chronic hypoxic respiratory failure Acute exacerbation of systolic congestive heart failure, ejection fraction 20-25 % Cardiorenal syndrome New onset end-stage renal disease requiring hemodialysis Chronic paroxysmal atrial fibrillation Severe COPD and emphysema Super morbid obesity Chronic kidney disease stage 4-5, secondary to nephrosclerosis Diabetes mellitus type 2 Anemia Volume overload Hypertension Dyslipidemia Hypothyroidism Mild hyperkalemia Diabetic peripheral neuropathy CPAP use nightly is encouraged Hemodialysis per nephrology Fluid removal as blood pressure tolerates GI and DVT prophylaxis Incentive spirometry and pulmonary hygiene Antibiotics per ID Bronchodilators Patient to follow up with Dr. Baeza after admission to assess home CPAP and mask situation. Respiratory status is stable. Okay to [place] from pulmonary standpoint.
[2016-10-15 17:02] LABS: Glucose,Whole Blood 142 mg/dL (75-99)
[2016-10-15] MEDS: INSULIN GLARGINE 100 UNIT/ML 10 ML VIAL SQ SCH (21:27)
[2016-10-15] MEDS: EDOXABAN TOSYLATE 30 MG TABLET PO SCH (21:28)
[2016-10-15] MEDS: DOXEPIN 10 MG CAP PO SCH (21:28)
[2016-10-15 21:39] LABS: Glucose,Whole Blood 177 mg/dL (75-99)
[2016-10-16] MEDS: METHYLPHENIDATE HCL 10 MG TAB PO SCH ×2 (04:44→17:15)
[2016-10-16] MEDS: LEVOTHYROXINE 75 MCG TAB PO SCH (06:26)
[2016-10-16 06:48] LABS: Glucose,Whole Blood 118 mg/dL (75-99)
[2016-10-16] MEDS: PARoxetine 20 MG TAB PO SCH (07:49)
[2016-10-16] MEDS: ALBUTEROL NEBULIZED 2.5 MG/3 ML INHALATION SCH ×4 (08:17→20:00)
[2016-10-16] MEDS: FUROSEMIDE 80 MG TAB PO SCH ×2 (09:02→17:12)
[2016-10-16] MEDS: ERGOCALCIFEROL 50,000 UNIT CAP PO SCH (09:02)
[2016-10-16] MEDS: ALLOPURINOL 100 MG TAB PO SCH (09:02)
[2016-10-16] MEDS: CEPHALEXIN 500 MG CAP PO SCH ×2 (09:02→21:23)
[2016-10-16] MEDS: FLUCONAZOLE 100 MG TAB PO SCH (09:03)
[2016-10-16] MEDS: METOPROLOL TARTRATE 25 MG TAB PO SCH ×2 (09:03→23:48)
[2016-10-16] MEDS: PANTOPRAZOLE 40 MG TABLET PO SCH (09:03)
[2016-10-16] MEDS: SACUBITRIL/VALSARTAN 24 MG-26 MG TABLET PO SCH ×2 (09:04→21:23)
[2016-10-16] MEDS: PREGABALIN 75 MG CAP PO SCH ×2 (09:06→21:23)
[2016-10-16] MEDS: NYSTATIN 100,000UNIT/GM CREAM 30 GM TUBE TOPICAL SCH ×2 (09:08→21:24)
[2016-10-16 10:03] LABS: Anisocytosis Slight; Basophils # (A) 0.1 k/uL (0-0.2); Basophils % (A) 1 %; CH 29.9; CHCM 31.2; Eosinophils # (A) 1.4 k/uL (0-0.7); Eosinophils % (A) 18 %; HCT 29.7 % (39.0-53.0); HDW 3.25; HGB 9.1 gm/dL (13.0-17.5); Hypochromasia Moderate; Luc # (Auto) 0.26; Luc % (Auto) 4; Lymphocytes # (A) 1.7 k/uL (1.0-4.8); Lymphocytes % (A) 24 %; MCH 29.5 pg (25.0-35.0); MCHC 30.6 g/dL (31.0-37.0); MCV 96.4 fL (80.0-100.0); Macrocytosis Slight; Mean Platelet Volume 8.8; Monocytes # (A) 0.4 k/uL (0-1.0); Monocytes % (A) 5 %; Neutrophils # (A) 3.6 k/uL (1.3-7.7); Neutrophils % (A) 49 %; RBC 3.09 m/uL (4.30-5.90); RDW 17.5 % (11.5-15.5); WBC 7.4 k/uL (3.8-10.6); WBC (Perox) 8.05
[2016-10-16 10:53] LABS: Calcium 8.9 mg/dL (8.4-10.2); Magnesium 1.9 mg/dL (1.6-2.3); Phosphorous 6.3 mg/dL (2.5-4.5); Potassium 4.1 mmol/L (3.5-5.1)
--- NOTE | 2016-10-16 11:09 | P.PN ---
Subjective Principal diagnosis: Cardiorenal syndrome Patient seen and examined. Patient is sitting up in the chair. He states he is feeling very well today. He is hoping to be discharged to rehab today. He states his breathing is at baseline. Objective - Vital Signs Vital signs: Vital Signs Temp 97.0 F L 10/16/16 07:00 Pulse 100 10/16/16 08:24 Resp 16 10/16/16 07:00 BP 99/55 10/16/16 07:00 Pulse Ox 98 10/16/16 07:00 Intake & Output 10/15/16 10/16/16 10/16/16 18:59 06:59 18:59 Intake Total 300 720 Balance 300 720 Weight 161.615 kg Intake: Oral 300 720 Other: Voiding Method Toilet Toilet # Voids 3 1 - Exam Gen.: Patient is alert and oriented 3, no acute distress, morbidly obese Cardiovascular: Regular rate and rhythm, S1/S2 Lungs: Diminished breath sounds bilaterally otherwise clear Abdomen: Soft nontender nondistended positive bowel sounds Extremities: + Edema, Aftab bandage wrapping in place - Labs CBC & Chem 7: 10/16/16 09:45 10/16/16 09:45 Labs: Abnormal Lab Results - Last 24 Hours (Table) 10/15/16 10/15/16 10/15/16 Range/Units 11:51 16:54 21:29 RBC (4.30-5.90) m/uL Hgb (13.0-17.5) gm/dL Hct (39.0-53.0) % MCHC (31.0-37.0) g/dL RDW (11.5-15.5) % Eosinophils # (0-0.7) k/uL BUN (9-20) mg/dL Creatinine (0.66-1.25) mg/dL Glucose (74-99) mg/dL POC Glucose (mg/dL) 164 H 142 H 177 H (75-99) mg/dL Phosphorus (2.5-4.5) mg/dL 10/16/16 10/16/16 10/16/16 Range/Units 06:46 09:45 09:45 RBC 3.09 L (4.30-5.90) m/uL Hgb 9.1 L (13.0-17.5) gm/dL Hct 29.7 L (39.0-53.0) % MCHC 30.6 L (31.0-37.0) g/dL RDW 17.5 H (11.5-15.5) % Eosinophils # 1.4 H (0-0.7) k/uL BUN 72 H (9-20) mg/dL Creatinine 3.83 H (0.66-1.25) mg/dL Glucose 230 H (74-99) mg/dL POC Glucose (mg/dL) 118 H (75-99) mg/dL Phosphorus 6.3 H (2.5-4.5) mg/dL Assessment and Plan Plan: ALLA/OHS with acute on chronic hypoxic respiratory failure Acute exacerbation of systolic congestive heart failure, ejection fraction 20-25 % Cardiorenal syndrome New onset end-stage renal disease requiring hemodialysis Chronic paroxysmal atrial fibrillation Severe COPD and emphysema Super morbid obesity Chronic kidney disease stage 4-5, secondary to nephrosclerosis Diabetes mellitus type 2 Anemia Volume overload Hypertension Dyslipidemia Hypothyroidism Mild hyperkalemia Diabetic peripheral neuropathy CPAP use nightly is encouraged Hemodialysis per nephrology Fluid removal as blood pressure tolerates GI and DVT prophylaxis Incentive spirometry and pulmonary hygiene Antibiotics per ID Bronchodilators Patient to follow up with Dr. Baeza after admission to assess home CPAP and mask situation. Respiratory status is stable. Okay to [place] from pulmonary standpoint.
[2016-10-16 11:18] LABS: Glucose,Whole Blood 218 mg/dL (75-99)
--- NOTE | 2016-10-16 11:36 | DS ---
DATE OF ADMISSION: 10/06/2016 DATE OF DISCHARGE: Patient is admitted for congestive heart failure exacerbation, acute hypoxic respiratory failure, scrotal edema and scrotal cellulitis, all of which are improving at this point of time. Patient was initiated on hemodialysis here and patient is a Sunday, and Sunday hemodialysis. Patient will be discharged to [facility] today and patient was seen and examined on the day of discharge. Vitals are stable. PHYSICAL EXAMINATION: GENERAL: Alert and oriented x3, morbidly obese. HEENT: Pupils are round and equally reacting to light. EOMI. No scleral icterus. No conjunctival pallor. Normocephalic, atraumatic. No pharyngeal erythema. No thyromegaly. CARDIOVASCULAR: S1 and S2 present. No murmurs, rubs, or gallops. PULMONARY: Chest is clear to auscultation, no wheezing or crackles. ABDOMEN: Soft, nontender, nondistended, normoactive bowel sounds. No palpable organomegaly. MUSCULOSKELETAL: No joint swelling or deformity. NEUROLOGICAL: Gross neurological examination did not reveal any focal deficits. SKIN: No rashes. EXTREMITIES: Significantly improved edema of the lower extremities as well as scrotal swelling and scrotal redness. Patient is on Keflex at this point of time. Multiple consultants evaluated the patient. ASSESSMENT AND PLAN: 1. Acute hypoxic respiratory failure secondary to congestive heart failure, chronic systolic dysfunction, ejection fraction of 20% with acute exacerbation, ( ) atrial fibrillation, rate controlled and patient is on doxepin which will be continued and patient is also on Entresto for congestive heart failure, which will be continued as well. 2. Chronic obstructive pulmonary disease without any significant exacerbation. 3. Morbid obesity and restrictive lung disease. 4. Extensive bilateral lower limb edema and scrotal edema and scrotal cellulitis. 5. Sleep apnea. 6. Hypertension. 7. Hyperlipidemia. 8. Hypothyroidism. 9. Endstage renal disease secondary to cardiorenal syndrome with a component of diabetic nephropathy. 10. Diabetic peripheral neuropathy. Please refer to my depart summary for the list of discharge medications. Patient will be discharged today and patient will follow with the physician in subacute rehab. Follow with Dr. Scooby Baeza in about a week. Activity as tolerated. Cardiac, diabetic 1800 calorie and renal diet. Spent greater than 35 minutes in total discharge process.
--- NOTE | 2016-10-16 14:51 | PN ---
Patient is seen for followup for end-stage renal disease and he will be started on dialysis. He will be going to [place]. Patient had his last dialysis on Sunday. On examination, he is comfortable. Blood pressure is 99/55, heart rate 96 per minute. He is afebrile. Examination shows chronic lower extremity edema with chronic skin changes. Abdomen is soft and obese. Examination of the lungs showed decreased breath sounds at bilateral bases. Labs show sodium 139, potassium 4.1. Hemoglobin 9.1 g/dL. ASSESSMENT: 1. End-stage renal disease, currently on hemodialysis. Patient will be discharged today and he will continue hemodialysis as outpatient out of [place]. 2. Volume overload, currently improved. 3. Cardiomyopathy, ejection fraction of 20% to 25%. 4. Atrial fibrillation with controlled ventricular response. 5. Cardiorenal syndrome. PLAN: Patient can be discharged. We will follow up as outpatient in [place].
[2016-10-16 17:13] LABS: Glucose,Whole Blood 222 mg/dL (75-99)
[2016-10-16 20:02] LABS: Glucose,Whole Blood 161 mg/dL (75-99)
[2016-10-16] MEDS: EDOXABAN TOSYLATE 30 MG TABLET PO SCH (21:23)
[2016-10-16] MEDS: INSULIN GLARGINE 100 UNIT/ML 10 ML VIAL SQ SCH (21:23)
[2016-10-16] MEDS: ASPIRIN 81 MG CHEW PO SCH (21:23)
[2016-10-16] MEDS: DOXEPIN 10 MG CAP PO SCH (21:23)
[2016-10-17] MEDS: LEVOTHYROXINE 75 MCG TAB PO SCH (06:14)
[2016-10-17] MEDS: METHYLPHENIDATE HCL 10 MG TAB PO SCH ×2 (06:15→16:47)
[2016-10-17 07:34] LABS: Glucose,Whole Blood 133 mg/dL (75-99)
[2016-10-17] MEDS: ALBUTEROL NEBULIZED 2.5 MG/3 ML INHALATION SCH ×4 (07:42→19:40)
--- NOTE | 2016-10-17 07:47 | PN ---
DATE OF SERVICE: 10/16/2016 Reason for follow up is bilateral lower extremity venostasis ulcer and cellulitis. INTERVAL HISTORY: The patient is afebrile. He has been breathing comfortably. Denies significant chest pain or cough. No abdominal pain. No diarrhea. On examination, blood pressure is 99/55 with pulse of 93, temperature 97. He is 98% on room air. General description is a middle-aged male up in the chair in no distress. RESPIRATORY SYSTEM: Unlabored breathing. Clear to auscultation. HEART: S1, S2. Regular rate and rhythm. ABDOMEN: Soft, no tenderness. Leg wounds have been dressed up with minimal drainage on the dressing. LABS: Hemoglobin is 9.1, white count 7.4 with a BUN of 72, creatinine 3.83. DIAGNOSTIC IMPRESSION AND PLAN: Patient with bilateral lower extremity venostasis ulcer with secondary cellulitis, currently on Keflex along with local wound care with Aquacel Silver dressing and Aftab wrap to keep the swelling down. That will be continued. Continue supportive care.
[2016-10-17] MEDS: CEPHALEXIN 500 MG CAP PO SCH ×2 (08:06→21:38)
[2016-10-17] MEDS: FLUCONAZOLE 100 MG TAB PO SCH (08:06)
[2016-10-17] MEDS: PARoxetine 20 MG TAB PO SCH (08:06)
[2016-10-17] MEDS: ALLOPURINOL 100 MG TAB PO SCH (08:07)
[2016-10-17] MEDS: PANTOPRAZOLE 40 MG TABLET PO SCH (08:07)
[2016-10-17] MEDS: PREGABALIN 75 MG CAP PO SCH ×2 (08:12→21:40)
[2016-10-17] MEDS: SACUBITRIL/VALSARTAN 24 MG-26 MG TABLET PO SCH ×2 (10:29→21:37)
[2016-10-17] MEDS: FUROSEMIDE 80 MG TAB PO SCH ×2 (10:41→16:49)
[2016-10-17] MEDS: NYSTATIN 100,000UNIT/GM CREAM 30 GM TUBE TOPICAL SCH ×2 (11:03→21:38)
--- NOTE | 2016-10-17 11:43 | P.PN ---
Subjective This is a 60-year-old morbidly obese male who is being evaluated and examined today on the fifth floor. This patient has a history of pulmonary hypertension , cor pulmonale and chronic cellulitis of his lower extremities. Patient has a history of congestive heart failure as well. Patient is well-known to our services and has a history of obstructive sleep apnea. He does have a CPAP machine at home but he is on and off with his compliance with his machine. Patient was brought into the emergency room with a seizure associated by perianal bleeding likely from his scrotal bleeding versus a GI bleed. Patient has chronic swelling of his lower extremities and also has sores to his lower extremities. Patient's overall is a poor historian. Patient has been using his nebulizer machine and supplemental oxygen at home however his BiPAP is not being used consistently. Upon examination the patient is resting up in his chair on 3 L of supplemental oxygen. Patient states that at home he uses 2 L. patient breathing is at his baseline. Patient is hoping to be discharged to rehabilitation facility today. Objective - Vital Signs Vital signs: Vital Signs Temp 97.6 F 10/16/16 23:00 Pulse 95 10/17/16 08:00 Resp 18 10/17/16 08:00 BP 124/96 10/17/16 07:00 Pulse Ox 98 10/17/16 07:00 Intake & Output 10/16/16 10/17/16 10/17/16 18:59 06:59 18:59 Intake Total 400 640 Balance 400 640 Weight 159.9 kg Intake: Oral 400 640 Other: Voiding Method Toilet Toilet Toilet # Voids 4 1 - Exam GENERAL EXAM: Alert, active, comfortable in no apparent distress. HEAD: Normocephalic. EYES: Normal reaction of pupils, equal size. NOSE: Clear with pink turbinates. THROAT: No erythema or exudates. Now pharyngeal opening NECK: No masses, no JVD. Neck veins prominent CHEST: No chest wall deformity. LUNGS: Equal air entry with no , wheeze, rhonchi or dullness. Few crackles at the bases. CVS: S1 and S2 normal with no audible mumurs, regular rhythm. ABDOMEN: No hepatosplenomegaly, normal bowel sounds, no guarding or rigidity. EXTREMITIES: +3 edema noted, pedal pulses palpable. Bilateral lower leg dressings in place. SKIN: No rashes CENTRAL NERVOUS SYSTEM: No focal deficits, tone is normal in all 4 extremities. - Labs CBC & Chem 7: 10/16/16 09:45 10/16/16 09:45 Labs: Abnormal Lab Results - Last 24 Hours (Table) 10/16/16 10/16/16 10/17/16 Range/Units 17:04 20:00 07:33 POC Glucose (mg/dL) 222 H 161 H 133 H (75-99) mg/dL Assessment and Plan Plan: Assessment Sleep disorder breathing, sleep apnea, severe chronic obstructive sleep apnea Severe chronic obstructive pulmonary disease Acute renal failure Chronic Kidney Disease stage IV Cardiomyopathy with acute on chronic systolic and diastolic heart failure Severe pulmonary hypertension related to multifactorial processes Obesity hypoventilation syndrome Diabetes mellitus, 2 Atrial fibrillation paroxysmal with rapid ventricular rate extensive bilateral lower leg edema with scrotal edema leading to scrotal cellulitis Plan Respiratory status is stable and can be cleared for discharge from a pulmonary standpoint. Medications have been reviewed and will be continued as ordered. We will continue with supplemental oxygen, pulmonary hygiene and supportive care. Continue with the patient's nebulizer treatments. Continue to encourage patient to use his BiPAP at night and when necessary. nephrology and infectious disease on consult. We will continue to monitor labs/results and adjust treatment as necessary. I performed an examination of the patient and discussed their management with the nurse practitioner. I have reviewed the nurse practitioner's note and agree with the documented findings and plan of care.
[2016-10-17 11:53] LABS: Glucose,Whole Blood 209 mg/dL (75-99)
[2016-10-17] MEDS: METOPROLOL TARTRATE 25 MG TAB PO SCH ×2 (12:09→23:39)
[2016-10-17 17:15] LABS: Glucose,Whole Blood 167 mg/dL (75-99)
--- NOTE | 2016-10-17 19:26 | PN ---
DATE OF SERVICE: 10/17/2016 REASON FOR FOLLOWUP: Bilateral lower extremity venostasis ulcers and cellulitis. INTERVAL HISTORY: The patient is afebrile. He is currently breathing comfortably. He is waiting for placement. Denies significant chest pain or shortness of breath. No significant pain in the leg area. No diarrhea. On examination, his vital signs are stable. General description is a middle-aged male up in the bed in no distress. RESPIRATORY SYSTEM: Unlabored breathing. Clear to auscultation anteriorly. HEART: S1, S2. Regular rate and rhythm. ABDOMEN: Soft. No tenderness. Bilateral leg wounds are currently dressed up; no obvious drainage on the dressing. DIAGNOSTIC IMPRESSION AND PLAN: Patient with bilateral lower extremity venostasis ulcers with secondary cellulitis. Plan at this time is to finish therapy with p.o. Keflex for another 4 to 5 days along with Aquacel Silver dressing to the wound and Aftab wrap to keep the swelling down. Continue supportive care.
--- NOTE | 2016-10-17 20:23 | PN ---
Patient is seen for followup for end-stage renal disease. He was dialyzed today. Patient is comfortable. He denies any significant complaints. Blood pressure is on the higher side, staying at about 124 to 150 per minute. He is afebrile. EXAMINATION OF THE HEART: S1 and S2. EXAMINATION OF THE LUNGS: Decreased breath sounds in bases. ABDOMEN: Soft, nontender. Examination of lower extremities shows chronic edema, chronic skin changes. Patient is moving all 4 extremities. Labs show sodium of 139, potassium 4.1 from yesterday. Hemoglobin was 9.1 g/dL. ASSESSMENT: 1. End-stage renal disease, on hemodialysis on a Sunday, , Sunday schedule. 2. Volume overload, currently improved. 3. Chronic atrial fibrillation with controlled ventricular response. 4. Cardiomyopathy; ejection fraction of 20% to 25%. 5. Cellulitis, lower extremities. PLAN: Patient is stable for discharge from nephrology standpoint. He will be dialyzed as outpatient in [place].
[2016-10-17 20:27] LABS: Glucose,Whole Blood 213 mg/dL (75-99)
[2016-10-17] MEDS: DOXEPIN 10 MG CAP PO SCH (21:37)
[2016-10-17] MEDS: EDOXABAN TOSYLATE 30 MG TABLET PO SCH (21:37)
[2016-10-17] MEDS: INSULIN GLARGINE 100 UNIT/ML 10 ML VIAL SQ SCH (21:38)
[2016-10-17] MEDS: ASPIRIN 81 MG CHEW PO SCH (21:38)
[2016-10-18] MEDS: LEVOTHYROXINE 75 MCG TAB PO SCH (06:12)
[2016-10-18] MEDS: METHYLPHENIDATE HCL 10 MG TAB PO SCH (06:12)
[2016-10-18 07:38] LABS: Glucose,Whole Blood 168 mg/dL (75-99)
[2016-10-18] MEDS: ALBUTEROL NEBULIZED 2.5 MG/3 ML INHALATION SCH ×2 (08:06→11:33)
[2016-10-18 08:08] VITALS: BP 87/62; RESP 18; TEMP 97.9
[2016-10-18] MEDS: SACUBITRIL/VALSARTAN 24 MG-26 MG TABLET PO SCH (09:52)
[2016-10-18] MEDS: PARoxetine 20 MG TAB PO SCH (09:52)
[2016-10-18] MEDS: PANTOPRAZOLE 40 MG TABLET PO SCH (09:53)
[2016-10-18] MEDS: CEPHALEXIN 500 MG CAP PO SCH (09:53)
[2016-10-18] MEDS: PREGABALIN 75 MG CAP PO SCH (09:54)
[2016-10-18] MEDS: ALLOPURINOL 100 MG TAB PO SCH (09:54)
[2016-10-18] MEDS: FLUCONAZOLE 100 MG TAB PO SCH (09:55)
[2016-10-18] MEDS: NYSTATIN 100,000UNIT/GM CREAM 30 GM TUBE TOPICAL SCH (09:57)
--- NOTE | 2016-10-18 10:56 | DS ---
DATE OF ADMISSION: 10/06/2016 DATE OF DISCHARGE: The patient was discharged yesterday. Please refer to my depart summary discharge summary from yesterday for further details. Because of insurance, we were unable to discharge him. We will try to discharge him today. Patient ended up staying in the hospital. The patient was seen and examined on the day of discharge. Vitals are stable. PHYSICAL EXAMINATION: GENERAL: The patient is alert and oriented x3, not in any acute distress. Well developed, well nourished. HEENT: Pupils are round and equally reacting to light. EOMI. No scleral icterus. No conjunctival pallor. Normocephalic, atraumatic. No pharyngeal erythema. No thyromegaly. CARDIOVASCULAR: S1 and S2 present. No murmurs, rubs, or gallops. PULMONARY: Chest is clear to auscultation, no wheezing or crackles. ABDOMEN: Soft, nontender, nondistended, normoactive bowel sounds. No palpable organomegaly. MUSCULOSKELETAL: No joint swelling or deformity. EXTREMITIES: The patient continues to have pedal edema and scrotal edema both of which significantly improved. NEUROLOGICAL: Gross neurological examination did not reveal any focal deficits. SKIN: No rashes. For further details, please refer to my dictation of discharge summary from yesterday. Please consider the discharge summary as progress note. For further details of discharge, please refer to yesterday's note.
[2016-10-18 11:09] LABS: Glucose,Whole Blood 253 mg/dL (75-99)
[2016-10-18] MEDS: FUROSEMIDE 80 MG TAB PO SCH (13:45)
[2016-10-18] MEDS: METOPROLOL TARTRATE 25 MG TAB PO SCH (13:45)
[2016-10-18 14:11] VITALS: PULSE 108
--- NOTE | 2016-10-18 14:52 | PN ---
DATE OF SERVICE: 10/18/2016 Reason for followup is bilateral lower extremity venostasis ulcer and cellulitis. INTERVAL HISTORY: The patient is afebrile, is currently breathing comfortably. Denies significant chest pain, no cough, no abdominal pain or any pain in the leg area. On examination, respiratory rate of 17 with a pulse of 80, temperature 97.9. He is 95% on 2 L nasal cannula. General description is a middle-age male up in the bed in no distress. RESPIRATORY SYSTEM: Unlabored breathing. Clear to auscultation. HEART: S1, S2 regular rate and rhythm ABDOMEN: Soft, no tenderness. Left lower extremity wound looks clean with no evidence of cellulitis and no drainage. LABS: No new lab has been obtained today. DIAGNOSTIC IMPRESSION AND PLAN: Patient with bilateral lower extremity venostasis ulcer as well as secondary cellulitis. Patient currently on oral Keflex, continue for about a week along with Aquacel Silver dressing to the wound and Aftab wrap for compression. Continue supportive care.
--- NOTE | 2016-10-19 07:09 | PN ---
Patient is seen for followup for end-stage renal disease. He is being discharged today. He will be going to rehab facility in [place] and hemodialysis on a Sunday, , Sunday schedule. On examination today, patient is comfortable. Blood pressure was low at 87/62. Patient has been at 90/63 previously. He is currently asymptomatic, heart rate about 108 per minute. He is afebrile. Examination of the heart, S1 and S2. Examination of the lungs, decreased breath sounds in bases. Patient is morbidly obese. Abdomen is soft, nontender, obese. Examination of lower extremities shows significant edema. Chronic skin changes. Multiple scratch lujan are noted and bleeding from multiple areas on the arm and on the extremities. Labs are not available from today. ASSESSMENT: 1. Endstage renal disease on hemodialysis. Patient will be dialyzed on a Sunday, , Sunday schedule. 2. Anemia of chronic disease. 3. Fluid overload, slowly improving. 4. Morbid obesity. PLAN: Patient can be discharged. Will follow up as outpatient on dialysis.
== END 2016-10-18 14:20 | DRG 291 ==
LOC: EC 10:23 → 4MS4W 14:13 → 5MS5E 15:15 → 6ICU 10-11 02:28 → 5MS5E 10-11 11:27
PROVIDERS: ADMIT Internal Medicine; ATTEND Internal Medicine
PROC: 02HV33Z Insertion of Infusion Device into Superior Vena Cava, Percutaneous Approach (ICD-10-PCS; principal; 2016-10-09 17:15)
PROC: B548ZZA Ultrasonography of Superior Vena Cava, Guidance (ICD-10-PCS; principal; 2016-10-09 17:15)
PROC: B5181ZA Fluoroscopy of Superior Vena Cava using Low Osmolar Contrast, Guidance (ICD-10-PCS; 2016-10-09 17:15)
PROC: 5A1D60Z (ICD-10-PCS; 2016-10-17)
DX: I13.2 Hypertensive heart and chronic kidney disease with heart failure and with stage 5 chronic kidney disease, or end stage renal disease (principal); I50.43 Acute on chronic combined systolic (congestive) and diastolic (congestive) heart failure; J96.21 Acute and chronic respiratory failure with hypoxia; E11.21 Type 2 diabetes mellitus with diabetic nephropathy; E11.42 Type 2 diabetes mellitus with diabetic polyneuropathy; I27.2 Other secondary pulmonary hypertension; N18.6 End stage renal disease; E66.2 Morbid (severe) obesity with alveolar hypoventilation; G47.419 Narcolepsy without cataplexy; I48.0 Paroxysmal atrial fibrillation; L03.115 Cellulitis of right lower limb; J44.1 Chronic obstructive pulmonary disease with (acute) exacerbation; L03.116 Cellulitis of left lower limb; Z68.43 Body mass index [BMI] 50.0-59.9, adult; E11.622 Type 2 diabetes mellitus with other skin ulcer; E11.65 Type 2 diabetes mellitus with hyperglycemia; B95.62 Methicillin resistant Staphylococcus aureus infection as the cause of diseases classified elsewhere; D63.8 Anemia in other chronic diseases classified elsewhere; E03.9 Hypothyroidism, unspecified; E11.22 Type 2 diabetes mellitus with diabetic chronic kidney disease; E11.649 Type 2 diabetes mellitus with hypoglycemia without coma; E78.5 Hyperlipidemia, unspecified; E87.5 Hyperkalemia; F32.9 Major depressive disorder, single episode, unspecified; G47.33 Obstructive sleep apnea (adult) (pediatric); G89.29 Other chronic pain; I27.81 Cor pulmonale (chronic); I45.10 Unspecified right bundle-branch block; I48.2 Chronic atrial fibrillation; J98.4 Other disorders of lung; K21.9 Gastro-esophageal reflux disease without esophagitis; L98.499 Non-pressure chronic ulcer of skin of other sites with unspecified severity; M19.90 Unspecified osteoarthritis, unspecified site; M48.00 Spinal stenosis, site unspecified; N49.2 Inflammatory disorders of scrotum; T38.0X5A Adverse effect of glucocorticoids and synthetic analogues, initial encounter; T50.2X5A Adverse effect of carbonic-anhydrase inhibitors, benzothiadiazides and other diuretics, initial encounter; Z66 Do not resuscitate; Z79.4 Long term (current) use of insulin; Z79.84 Long term (current) use of oral hypoglycemic drugs; Z79.899 Other long term (current) drug therapy; Z82.41 Family history of sudden cardiac death; Z82.49 Family history of ischemic heart disease and other diseases of the circulatory system; Z86.14 Personal history of Methicillin resistant Staphylococcus aureus infection; Z87.01 Personal history of pneumonia (recurrent); Z87.891 Personal history of nicotine dependence; Z99.2 Dependence on renal dialysis; Z99.81 Dependence on supplemental oxygen; F40.240 Claustrophobia
CPT/HCPCS: 36415; 36558; 71010; 76937; 77001; 80048; 80053; 80074; 81003; 82550; 82553; 82728; 83540; 83550; 83735; 83880; 84100; 84484; 85025; 85027; 85610; 85730; 86704; 86706; 87070; 87205; 87340; 90935; 93005; 94640; 94660; 94760; 99285

== ENCOUNTER 2016-11-14 14:53 | Inpatient (IN) | payer MEDICARE, OTHER ==
[2016-11-14] MEDS ORDERED: SODIUM CHLORIDE 0.9% 1,000 ML IV ONE (15:17)
[2016-11-14] MEDS ORDERED: SODIUM CHLORIDE 0.9% 1,000 ML IV SCH ×2 (15:30→23:45)
[2016-11-14 15:36] LABS: Anisocytosis Slight; Basophils # (A) 0.1 k/uL (0-0.2); Basophils % (A) 1 %; CH 30.6; CHCM 31.2; Eosinophils # (A) 1.2 k/uL (0-0.7); Eosinophils % (A) 9 %; HCT 29.8 % (39.0-53.0); HDW 3.29; HGB 9.2 gm/dL (13.0-17.5); Hypochromasia Moderate; Luc # (Auto) 0.34; Luc % (Auto) 3; Lymphocytes % (A) 16 %; MCH 30.5 pg (25.0-35.0); MCHC 30.8 g/dL (31.0-37.0); MCV 99.3 fL (80.0-100.0); Macrocytosis Moderate; Mean Platelet Volume 7.7; Monocytes # (A) 0.7 k/uL (0-1.0); Monocytes % (A) 6 %; Neutrophils # (A) 8.7 k/uL (1.3-7.7); Neutrophils % (A) 67 %; WBC 13.1 k/uL (3.8-10.6); WBC (Perox) 13.58
[2016-11-14 15:50] LABS: INR 1.3 (<1.1); Prothrombin Time 12.6 sec (9.0-12.0)
--- NOTE | 2016-11-14 15:50 | CT ---
EXAMINATION TYPE: CT brain wo con DATE OF EXAM: 11/14/2016 3:46 PM HISTORY: Altered mental status. CT DLP: 1019.9 mGycm. Automated Exposure Control for Dose Reduction was Utilized. TECHNIQUE: CT scan of the head is performed without contrast. COMPARISON: CT brain October 15, 2015. FINDINGS: There is no acute intracranial hemorrhage or midline shift identified. There is diffuse v entricular and sulcal prominence consistent with diffuse age-related cerebral atrophy. There is low- attenuation in the periventricular white matter consistent with chronic small vessel ischemic change. The globes are intact and the visualized sinuses are clear. IMPRESSION: No acute intracranial hemorrhage or midline shift. There is moderate diffuse age-relate d cerebral atrophy and mild chronic small vessel ischemic change redemonstrated. No significant kang e from prior study is identified.
[2016-11-14 15:54] LABS: Calcium 9.7 mg/dL (8.4-10.2); Total Bilirubin 0.4 mg/dL (0.2-1.3); Total Protein 7.8 g/dL (6.3-8.2)
--- NOTE | 2016-11-14 16:03 | XR ---
EXAMINATION TYPE: XR chest 2V DATE OF EXAM: 11/14/2016 COMPARISON: Prior chest x-ray October 11, 2016 HISTORY: Altered mental status per order. History of COPD, CHF, hypertension, and morbid obesity. TECHNIQUE: Frontal and lateral views of the chest are obtained. FINDINGS: Exam is suboptimal due to patient's large body habitus, lateral view is essentially nondiag nostic. There is redemonstration of right internal jugular dual-lumen dialysis catheter. There is no focal air space opacity, pleural effusion, or pneumothorax seen. The cardiac silhouette size is stab le and mildly enlarged. The osseous structures are intact. IMPRESSION: Suboptimal study due to body habitus, mild cardiomegaly without acute pulmonary process.
[2016-11-14 16:08] LABS: Troponin I 0.013 ng/mL (0.000-0.034)
[2016-11-14 16:14] LABS: Creatine Kinase MB 2.9 ng/mL (0.0-2.4)
--- NOTE | 2016-11-14 17:19 | ED ---
Altered Mental Status HPI - General Chief Complaint: Altered Mental Status Stated Complaint: Weakness/back pain Time Seen by Provider: 11/14/16 15:07 Source: patient, EMS Mode of arrival: EMS - History of Present Illness Initial Comments: This 60-year-old white male presents as a transfer from [facility]. He apparently has a history of end-stage renal disease and is on dialysis. He apparently refused dialysis today as they would would not let him go to the bathroom for a bowel movement. He also apparently had some shortness of breath. He is a very poor historian and apparently is more confused. He was seen at [facility] and sent here for further evaluation and treatment. His lasting floorworker is Dr. Carrillo. The patient is very confused upon my evaluation and is unable to give any definitive reliable history. He told me that his last dialysis was one week ago. He was complaining of some low back pain as well. No other identifiable complaints or modifying factors. - Related Data Home Medications Medication Instructions Recorded Confirmed Ergocalciferol [Vitamin D2 50,000 unit PO MO 11/24/15 11/14/16 (DRISDOL)] Omeprazole [PriLOSEC] 20 mg PO DAILY 11/24/15 11/14/16 Levalbuterol Nebulized [Xopenex 1.25 mg INHALATION RT-TID 11/25/15 11/14/16 Nebulized] Sacubitril/Valsartan [Entresto 24 1 tab PO BID 11/25/15 11/14/16 mg-26 mg Tablet] Levothyroxine Sodium [Synthroid] 150 mcg PO DAILY 05/02/16 11/14/16 Pravastatin Sodium [Pravachol] 40 mg PO HS 05/02/16 11/14/16 Allopurinol [Zyloprim] 300 mg PO DAILY 07/08/16 11/14/16 Edoxaban Tosylate [Savaysa] 30 mg PO HS 07/08/16 11/14/16 PARoxetine HCL [Paxil] 40 mg PO DAILY@1700 07/08/16 11/14/16 Acetaminophen Tab [Tylenol] 650 mg PO Q6H PRN 10/06/16 11/14/16 Doxepin [SINEquan] 10 mg PO HS 10/06/16 11/14/16 Furosemide [Lasix] 80 mg PO DAILY 10/06/16 11/14/16 Bisacodyl [Dulcolax] 5 mg PO DAILY PRN 11/14/16 11/14/16 Calcium Acetate [Phoslo] 667 mg PO TID 11/14/16 11/14/16 Insulin Glargine [Lantus] 20 unit SQ HS@199911/14/16 11/14/16 Magnesium Hydroxide [Milk of 400 mg PO DAILY PRN 11/14/16 11/14/16 Magnesia] Methylphenidate HCl [Ritalin] 20 mg PO BID@0500,1500 11/14/16 11/14/16 Midodrine HCl [ProAmatine] 10 mg PO TID 11/14/16 11/14/16 Pregabalin [Lyrica] 75 mg PO BID@0500,1700 11/14/16 11/14/16 hydrOXYzine HCL [Atarax] 25 mg PO TID 11/14/16 11/14/16 oxyCODONE HCL 15 mg PO BID PRN 11/14/16 11/14/16 Previous Rx's Medication Instructions Recorded ALPRAZolam [Xanax] 0.5 mg PO Q8H PRN #30 tab 10/16/16 Allergies Allergy/AdvReac Type Severity Reaction Status Date / Time No Known Allergies Allergy Verified 11/14/16 16:07 Review of Systems ROS Statement: Those systems with pertinent positive or pertinent negative responses have been documented in the HPI. ROS Other: All systems not noted in ROS Statement are negative. Past Medical History Past Medical History: Atrial Fibrillation, Heart Failure, COPD, Diabetes Mellitus, GERD/Reflux, Hyperlipidemia, Hypertension, Pneumonia, Renal Disease, Sleep Apnea/CPAP/BIPAP, Thyroid Disorder Additional Past Medical History / Comment(s): IDDM type II, chronic kidney disease stage III, ALLA uses CPAP most nights, narcolepsy, diabetic neuropathy bilateral hands and feet, chronic back pain, spinal stenosis, DJD, falls, diverticular dx, L vocal cord irregularity/lesion noted and pt states he followed up and it had gone down, hypothyroidism.EDENTULOUS History of Any Multi-Drug Resistant Organisms: MRSA, Other MDRO Date of last positivie culture/infection: 02/03/15, 05/02/16 MDRO Source:: Right leg, mdro pseudo urine Past Surgical History: Adenoidectomy, Cholecystectomy, Orthopedic Surgery, Tonsillectomy Additional Past Surgical History / Comment(s): 04/28/15 nasophargoscopy larygoscopy, colonoscopy, lt knee arthroscopy Past Anesthesia/Blood Transfusion Reactions: No Reported Reaction, Family History of Problems w/ Anesthesia Additional Past Anesthesia/Blood Transfusion Reaction / Comment(s): states father had cardiac arrest 2x's. Pt received blood in 1983 with tonsillectomy.PT IS CLAUSTERPHOBIC. Past Psychological History: Depression Additional Psychological History / Comment(s): . Smoking Status: Former smoker Past Alcohol Use History: None Reported Additional Past Alcohol Use History / Comment(s): Pt states he started smoking at age 9 yrs and WAS up to 2 ppd ,THEN QUIT SMORT PERIOD OF TIME BUT ONLY FEW CIG PER DAY Past Drug Use History: None Reported - Past Family History Sister(s) Additional Family Medical History / Comment(s): LILLY'Imer Mother Family Medical History: Renal Disease Father Family Medical History: Cancer, Coronary Artery Disease (CAD), Diabetes Mellitus General Exam - General Exam Comments Initial Comments: GENERAL: The patient is well nourished and well hydrated. VITAL SIGNS: Heart rate, blood pressure, respiratory rate reviewed as recorded in nurse's notes. EYES: Pupils are round and reactive. Extraocular movements are intact. No conjunctival / lid redness or swelling. ENT: No external evidence of injury, swelling, or ecchymosis. Airway is patent. Throat is clear. NECK: Nontender. No swelling or evidence of injury. No subcutaneous emphysema. Trachea is midline. No thyroid mass. HEART: Regular rate and rhythm. Good peripheral pulses. LUNGS/CHEST: Breath sounds clear and equal bilaterally. No rales, rhonchi, or wheezes. No ecchymosis, subcutaneous emphysema, or tenderness. ABDOMEN: Abdomen soft without tenderness. No palpable masses or organomegaly. No peritoneal signs. No abdominal wall swelling or ecchymosis. EXTREMITIES: No extremity tenderness. Normal muscle tone and function. There is mild tenderness to the paralumbar musculature. NEUROLOGIC: Sensation is grossly intact. Cranial nerve exam reveals face is symmetrical, tongue is midline, speech is clear. SKIN: No abrasions or ecchymosis is noted. No induration or masses noted. PSYCHIATRIC: Alert but confused. Course Vital Signs 11/14/16 11/14/16 11/14/16 15:00 15:16 16:34 Temperature 96.9 F L Pulse Rate 101 H 106 H 97 Respiratory 16 16 Rate Blood Pressure 93/51 107/56 O2 Sat by Pulse 94 L 98 Oximetry Medical Decision Making - Medical Decision Making The patient was seen and examined. All diagnostics were reviewed. The patient was seen by her previous physician and initially and repeat labs CT and x-ray were completed. The EKG shows atrial fibrillation at a rate of 118. There is evidence of a right bundle-branch block as well. The QRS duration is 144, QTC intervals 482. No acute ST-T wave changes are identified. Patient does have a history of atrial fibrillation and on recheck his pulse is approximately 106. Laboratories reviewed and does show evidence of renal failure with a significant elevation of the BUN/creatinine. Records from [facility] are reviewed. Old records are reviewed. The chest x-ray does not show any definitive acute process. The patient also had a computed tomography scan of the brain which does not show any acute process. Is felt as though he would require admission to the hospital. Case will be discussed with internal medicine in the near future and a nephrology consult will be placed for dialysis. - Lab Data Result diagrams: 11/14/16 15:25 11/14/16 15:25 Lab Results 11/14/16 11/14/16 11/14/16 Range/Units 15:25 15:25 15:25 WBC 13.1 H (3.8-10.6) k/uL RBC 3.00 L (4.30-5.90) m/uL Hgb 9.2 L (13.0-17.5) gm/dL Hct 29.8 L (39.0-53.0) % MCV 99.3 (80.0-100.0) fL MCH 30.5 (25.0-35.0) pg MCHC 30.8 L (31.0-37.0) g/dL RDW 19.0 H (11.5-15.5) % Plt Count 227 (150-450) k/uL Neutrophils % 67 % Lymphocytes % 16 % Monocytes % 6 % Eosinophils % 9 % Basophils % 1 % Neutrophils # 8.7 H (1.3-7.7) k/uL Lymphocytes # 2.0 (1.0-4.8) k/uL Monocytes # 0.7 (0-1.0) k/uL Eosinophils # 1.2 H (0-0.7) k/uL Basophils # 0.1 (0-0.2) k/uL Hypochromasia Moderate Anisocytosis Slight Macrocytosis Moderate PT (9.0-12.0) sec INR (<1.1) APTT (22.0-30.0) sec Sodium (137-145) mmol/L Potassium (3.5-5.1) mmol/L Chloride (98-107) mmol/L Carbon Dioxide (22-30) mmol/L Anion Gap mmol/L BUN (9-20) mg/dL Creatinine (0.66-1.25) mg/dL Est GFR (MDRD) Af Amer (>60 ml/min/1.73 sqM) Est GFR (MDRD) Non-Af (>60 ml/min/1.73 sqM) Glucose (74-99) mg/dL Calcium (8.4-10.2) mg/dL Total Bilirubin (0.2-1.3) mg/dL AST (17-59) U/L ALT (21-72) U/L Alkaline Phosphatase (38-126) U/L Ammonia <9 (<30) umol/L Total Creatine Kinase 132 (55-170) U/L CK-MB (CK-2) 2.9 H* (0.0-2.4) ng/mL CK-MB (CK-2) Rel Index 2.2 Troponin I 0.013 (0.000-0.034) ng/mL Total Protein (6.3-8.2) g/dL Albumin (3.5-5.0) g/dL 11/14/16 11/14/16 Range/Units 15:25 15:25 WBC (3.8-10.6) k/uL RBC (4.30-5.90) m/uL Hgb (13.0-17.5) gm/dL Hct (39.0-53.0) % MCV (80.0-100.0) fL MCH (25.0-35.0) pg MCHC (31.0-37.0) g/dL RDW (11.5-15.5) % Plt Count (150-450) k/uL Neutrophils % % Lymphocytes % % Monocytes % % Eosinophils % % Basophils % % Neutrophils # (1.3-7.7) k/uL Lymphocytes # (1.0-4.8) k/uL Monocytes # (0-1.0) k/uL Eosinophils # (0-0.7) k/uL Basophils # (0-0.2) k/uL Hypochromasia Anisocytosis Macrocytosis PT 12.6 H (9.0-12.0) sec INR 1.3 (<1.1) APTT 24.0 (22.0-30.0) sec Sodium 139 (137-145) mmol/L Potassium 5.0 (3.5-5.1) mmol/L Chloride 98 (98-107) mmol/L Carbon Dioxide 22 (22-30) mmol/L Anion Gap 19 mmol/L BUN 70 H (9-20) mg/dL Creatinine 9.30 H* (0.66-1.25) mg/dL Est GFR (MDRD) Af Amer 7 (>60 ml/min/1.73 sqM) Est GFR (MDRD) Non-Af 6 (>60 ml/min/1.73 sqM) Glucose 278 H (74-99) mg/dL Calcium 9.7 (8.4-10.2) mg/dL Total Bilirubin 0.4 (0.2-1.3) mg/dL AST 30 (17-59) U/L ALT 24 (21-72) U/L Alkaline Phosphatase 115 (38-126) U/L Ammonia (<30) umol/L Total Creatine Kinase (55-170) U/L CK-MB (CK-2) (0.0-2.4) ng/mL CK-MB (CK-2) Rel Index Troponin I (0.000-0.034) ng/mL Total Protein 7.8 (6.3-8.2) g/dL Albumin 4.1 (3.5-5.0) g/dL Disposition Clinical Impression: Acute renal failure (ARF), Chronic atrial fibrillation, Renal failure, Morbid obesity, Back pain, Altered mental status, Anemia Disposition: ADMITTED IP TO THIS [facility] Condition: Fair Referrals: Tl Trinidad MD [Primary Care Provider] - 1-2 days Time of Disposition: 17:26 Decision Date: 11/14/16 Decision Time: 17:26
[2016-11-14] MEDS ORDERED: ONDANSETRON 4 MG/2 ML VIAL IVP PRN (17:28)
[2016-11-14] MEDS ORDERED: NALOXONE 0.4 MG/ML 1 ML VIAL IV PRN (17:28)
[2016-11-14] MEDS ORDERED: ACETAMINOPHEN TAB 325 MG TAB PO PRN (17:28)
[2016-11-14] MEDS ORDERED: MAGNESIUM HYDROXIDE 2,400 MG/10 ML CUP PO PRN (17:34)
[2016-11-14] MEDS ORDERED: BISACODYL 5 MG TABLET.DR PO PRN (17:34)
[2016-11-14] MEDS ORDERED: ALPRAZolam 0.5 MG TAB PO PRN (17:34)
[2016-11-14] MEDS ORDERED: CALCIUM ACETATE 667 MG CAP PO SCH (18:00)
[2016-11-14] MEDS ORDERED: INSULIN GLARGINE 100 UNIT/ML 10 ML VIAL SQ SCH (20:00)
[2016-11-14] MEDS ORDERED: LEVALBUTEROL NEB 1.25 MG/3 ML AMP INHALATION SCH (20:00)
[2016-11-14] MEDS ORDERED: PRAVASTATIN SODIUM 40 MG TAB PO SCH (21:00)
[2016-11-14] MEDS ORDERED: SACUBITRIL/VALSARTAN 24 MG-26 MG TABLET PO SCH (21:00)
[2016-11-14] MEDS ORDERED: INSULIN LISPRO (humaLOG) 300 UNIT/3 ML VIAL SQ SCH (21:00)
[2016-11-14] MEDS ORDERED: EDOXABAN TOSYLATE 30 MG TABLET PO SCH (21:00)
[2016-11-14] MEDS ORDERED: DOXEPIN 10 MG CAP PO SCH (21:00)
[2016-11-14 21:37] LABS: Glucose,Whole Blood 223 mg/dL (75-99)
[2016-11-14] MEDS ORDERED: hydrOXYzine HCL 25 MG TAB PO SCH (22:00)
[2016-11-14 22:05] LABS: Anisocytosis Slight; Basophils # (A) 0.1 k/uL (0-0.2); Basophils % (A) 1 %; CH 30.6; CHCM 30.9; Eosinophils # (A) 1.6 k/uL (0-0.7); Eosinophils % (A) 13 %; HDW 3.25; HGB 9.6 gm/dL (13.0-17.5); Hypochromasia Moderate; Luc # (Auto) 0.45; Luc % (Auto) 4; Lymphocytes # (A) 2.1 k/uL (1.0-4.8); Lymphocytes % (A) 17 %; MCHC 30.9 g/dL (31.0-37.0); MCV 100.3 fL (80.0-100.0); Macrocytosis Moderate; Monocytes # (A) 0.7 k/uL (0-1.0); Monocytes % (A) 6 %; Neutrophils # (A) 7.3 k/uL (1.3-7.7); Neutrophils % (A) 60 %; RBC 3.09 m/uL (4.30-5.90); RDW 19.1 % (11.5-15.5); WBC 12.2 k/uL (3.8-10.6); WBC (Perox) 12.74
[2016-11-14 22:16] LABS: Calcium 9.4 mg/dL (8.4-10.2); Potassium 4.8 mmol/L (3.5-5.1); Total Bilirubin 0.7 mg/dL (0.2-1.3); Total Protein 7.9 g/dL (6.3-8.2)
[2016-11-14 22:19] VITALS: TEMP 96.8
[2016-11-14 22:35] LABS: Troponin I 0.016 ng/mL (0.000-0.034)
[2016-11-14 22:36] LABS: Creatine Kinase MB 3.3 ng/mL (0.0-2.4)
[2016-11-14 23:02] VITALS: BP 86/46; PULSE 91; RESP 18
[2016-11-14] MEDS ORDERED: MORPHINE SULFATE 2 MG/ML SYRINGE IVP PRN (23:39)
[2016-11-14] MEDS ORDERED: SCOPOLAMINE 1.5MG/72HR PATCH TRANSDERM SCH (23:45)
[2016-11-15] MEDS ORDERED: PREGABALIN 75 MG CAP PO SCH (05:00)
[2016-11-15] MEDS ORDERED: METHYLPHENIDATE HCL 5 MG TAB PO SCH (05:00)
[2016-11-15] MEDS ORDERED: LEVOTHYROXINE 75 MCG TAB PO SCH (06:30)
[2016-11-15] MEDS ORDERED: MIDODRINE 5 MG TAB PO SCH (07:00)
[2016-11-15] MEDS ORDERED: FUROSEMIDE 80 MG TAB PO SCH (09:00)
[2016-11-15] MEDS ORDERED: PANTOPRAZOLE 40 MG/10 ML VIAL IV SCH (09:00)
[2016-11-15] MEDS ORDERED: ALLOPURINOL 300 MG TAB PO SCH (09:00)
[2016-11-15] MEDS: LORazepam 2 MG/ML SYRINGE IV PRN ×2 (09:45→12:08)
--- NOTE | 2016-11-15 12:09 | HP ---
DATE OF ADMISSION: This dictation is both HISTORY AND PHYSICAL AND DISCHARGE SUMMARY Patient is a very pleasant 60-year-old male was brought in here from [facility]. Patient is a resident of extended care facility long term and patient refused dialysis and patient got confused. Patient is found to have renal dysfunction secondary to dialysis. Discussed with the family and patient has multiple chronic medical problems., poor functionality and patient has ejection fraction of 25%, morbidly obese, sleep apnea, cardiorenal syndrome. Patient's overall prognosis is extremely poor. After considering that, family decided to go back to the facility with hospice. Patient is presently comfortable. REVIEW OF SYSTEMS: Not relevant at this point of time did not obtain. Home medications include: 1. Ergocalciferol. 2. Omeprazole. 3. Levalbuterol. 4. Sacubitril. 5. Levothyroxine. 6. Pravastatin. 7. Allopurinol. 8. Edoxaban. 9. Paroxetine. 10. Acetaminophen. 11. Doxepin. 12. Lasix. 13. Bisacodyl. 14. Calcium acetate. 15. Glargine. 16. Methylphenidate. 17. Midodrine. 18. Pregabalin. 19. Hydroxyzine. 20. Oxycodone. 21. Patient is also on Xanax. ALLERGIES: No known drug allergies. PAST MEDICAL HISTORY: Significant for atrial fibrillation, congestive heart failure with ejection fraction of 20%, cardiorenal syndrome, COPD, end-stage renal disease secondary to cardiorenal syndrome, diabetes mellitus, obesity, sleep apnea, hypertension, hypothyroidism, narcolepsy. Patient probably does not have narcolepsy, is probably sleep apnea. Sister has ( ). Mother had renal disease and father had coronary artery disease and cancer. SOCIAL HISTORY: Former smoker, presently does not smoke. Denied any alcohol abuse or any drug abuse. PHYSICAL EXAMINATION: VITAL SIGNS: Temperature 96.8, pulse of 91, respiratory rate of 18, blood pressure 137/79, saturating at 100% on 3 L of O2 by cannula. GENERAL: The patient is comfortable, sleeping. Patient is barely arousable with painful stimuli. HEENT: Pupils are round and equally reacting to light. EOMI. No scleral icterus. No conjunctival pallor. Normocephalic, atraumatic. No pharyngeal erythema. No thyromegaly. CARDIOVASCULAR: S1 and S2 present. No murmurs, rubs, or gallops. PULMONARY: Chest is clear to auscultation, no wheezing or crackles. ABDOMEN: Soft, nontender, nondistended, normoactive bowel sounds. No palpable organomegaly. MUSCULOSKELETAL: No joint swelling or deformity. EXTREMITIES: No cyanosis, clubbing, or pedal edema. NEUROLOGICAL: Unable to asses. SKIN: No rashes. LABORATORY DATA: Not relevant at this point of time. Patient does have elevated BUN and creatinine ( ) his baseline as he did not receive hemodialysis. ASSESSMENT AND PLAN: 1. Acute toxic metabolic encephalopathy as patient did not receive hemodialysis. 2. Cardiorenal syndrome. 3. Congestive heart failure of chronic systolic dysfunction; ejection fraction of around 30%. 4. Sleep apnea. 5. Hypertension. 6. Hyperlipidemia. 7. Hypothyroidism. 8. Diabetic peripheral neuropathy. 9. End-stage renal disease. PLAN: Patient will not continue his dialysis further and patient was made hospice. Patient will be discharged to facility with hospice. Please refer to my depart summary for further details of discharge medications. Except for comfort medications, the rest of the medications were discontinued. Discharge diet as tolerated. Physician and hospice nursing staff will follow the patient in the rehab.
[2016-11-15 12:36] VITALS: BMI 48.8
[2016-11-15 12:51] LABS: Hemoglobin A1C 6.2 % (4.2-6.1)
[2016-11-15] MEDS ORDERED: PARoxetine 20 MG TAB PO SCH (17:00)
[2016-11-20] MEDS ORDERED: ERGOCALCIFEROL 50,000 UNIT CAP PO SCH (17:34)
== END 2016-11-15 14:32 | disposition hospice, inpatient (51) | DRG 291 ==
LOC: EC 14:53 → 5MS5E 17:29
PROVIDERS: ADMIT Internal Medicine; ATTEND Internal Medicine
DX: I13.2 Hypertensive heart and chronic kidney disease with heart failure and with stage 5 chronic kidney disease, or end stage renal disease (principal); G92 Toxic encephalopathy; N17.9 Acute kidney failure, unspecified; N18.6 End stage renal disease; E66.01 Morbid (severe) obesity due to excess calories; Z68.42 Body mass index [BMI] 45.0-49.9, adult; I50.22 Chronic systolic (congestive) heart failure; E11.22 Type 2 diabetes mellitus with diabetic chronic kidney disease; E11.42 Type 2 diabetes mellitus with diabetic polyneuropathy; I48.91 Unspecified atrial fibrillation; G47.419 Narcolepsy without cataplexy; G47.30 Sleep apnea, unspecified; E78.5 Hyperlipidemia, unspecified; E03.9 Hypothyroidism, unspecified; J44.9 Chronic obstructive pulmonary disease, unspecified; Z91.15 Patient's noncompliance with renal dialysis; F32.9 Major depressive disorder, single episode, unspecified; Z87.891 Personal history of nicotine dependence; Z90.49 Acquired absence of other specified parts of digestive tract; Z79.01 Long term (current) use of anticoagulants; Z79.4 Long term (current) use of insulin; Z79.899 Other long term (current) drug therapy
CPT/HCPCS: 36415; 70450; 71020; 80053; 82140; 82550; 82553; 83036; 83605; 84484; 85025; 85610; 85730; 87040; 93005